=== PATIENT | male | born 1935 | race Caucasian/White ===

== ENCOUNTER 2016-12-16 09:51 | Inpatient (IN) | payer MEDICARE, OTHER ==
[2016-12-16] MEDS ORDERED: NS 0.9% 1000 ML* 1,000 ML IV ONE (10:42)
[2016-12-16] MEDS ORDERED: Ondansetron INJ* 2 MG/ML VIAL IV ONE ×2 (10:42→12:30)
[2016-12-16] MEDS ORDERED: HYDROmorphone INJ* 1 MG/ML CARPUJECT SYRINGE IV ONE ×2 (10:42→12:30)
[2016-12-16 11:07] LABS: Hematocrit 36 % (42-52); Hemoglobin 11.7 g/dl (14.0-18.0); Mean Corpuscular HGB Conc 33 g/dl (31-36); Mean Corpuscular Hemoglobin 32 pg (27-31); Mean Corpuscular Volume 95 fL (80-94); Mean Platelet Volume 8 um3 (7.4-10.4); Red Blood Count 3.73 10^6/ul (4.0-5.4); Red Cell Distribution Width 14 % (10.5-15); White Blood Count 8.1 10^3/ul (3.5-10.8)
[2016-12-16 11:11] LABS: Add Diff/Slide Review? Slide Review Added; Comments Flag Yes
[2016-12-16 11:22] LABS: Albumin 3.2 g/dL (3.2-5.2); BUN/Creatinine Ratio 16.3 (8-20); C Reactive Protein 44.79 mg/L (< 5.00); Calcium 9.2 mg/dL (8.6-10.3); EGFR African American 101.5 (>60); Globulin 3.2 g/dL (2-4); Potassium 3.4 mmol/L (3.5-5.0); Total Bilirubin 0.3 mg/dL (0.2-1.0); Total Protein 6.4 g/dL (6.4-8.9)
[2016-12-16] MEDS ORDERED: ceFAZolin 1 GM in Dextrose (*) 1 GM/50 ML BAG IVPB ONE (12:04)
[2016-12-16] MEDS ORDERED: LORazepam TAB(*) 0.5 MG G TUBE PRN (13:34)
[2016-12-16] MEDS ORDERED: oxyCODONE TAB* 5 MG TAB PRN ×2 (13:34)
[2016-12-16] MEDS ORDERED: Sucralfate SUSP 1 GM/10 ml 10 ML UDC G TUBE SCH (13:45)
[2016-12-16] MEDS ORDERED: Acetaminophen ADULT LIQ* 650 MG/20.3 ML UDC G TUBE SCH (14:00)
--- NOTE | 2016-12-16 14:36 | ED ---
Fredis Tiwari Matthew, scribed for Talon Gonzalez MD on 12/16/16 at 1105 . GI/ HPI - HPI Summary HPI Summary: An 81 y/o male presents to the ED from [facility] with a G-Tube obstruction since this morning. G-Tube use was restarted on 12/11/16 after the patient saw Dr. Aguilar. At that time, it was decided he would no longer ingest food PO, because of an obstructed esophagus from tumors. In the past week, the nurse has been able to pass fluid through the G-Tube, but it has becoming increasingly difficulty and this morning they were unable to use the G-Tube. Associated symptoms include lateral erythema around the G-tube sight since 2 days ago, and diffuse abdominal pain that radiates to the back. The pain is rated 7/10 in severity. He has been unable to take his pain medication today. Per the daughter, he also has a port, which has not been flushed in months. - History of Current Complaint Chief Complaint: EDGeneral Time Seen by Provider: 12/16/16 10:14 Stated Complaint: PAIN, G TUBE ISSUES Hx Obtained From: Patient, Family/Integrity Engineer - Daughter Onset/Duration: Started Minutes Ago, Atraumatic, Still Present Timing: Constant Severity: Moderate Current Severity: Moderate Pain Intensity: 7 Location of Pain: Diffuse Pain Radiates to: Back Associated Signs and Symptoms: Positive: Back Pain, Abdominal Pain, Other: - Erythema laterally to the G-Tube Sight Aggravating Factor(s): Nothing Alleviating Factor(s): Nothing - Additional Pertinent History Primary Care Physician: [id number] - Allergy/Home Medications Allergies/Adverse Reactions: Allergies Allergy/AdvReac Type Severity Reaction Status Date / Time Esomeprazole [From Nexium] Allergy Unknown Verified 12/16/16 09:53 Reaction Details Gabapentin Allergy Unknown Verified 12/16/16 09:53 Reaction Details Niacin [From Niaspan] Allergy SEVERE Verified 12/16/16 09:53 HEARTBURN- PER DR. DWYER OFFICE NOTE Omeprazole [From Prilosec] Allergy Unknown Verified 12/16/16 09:53 Reaction Details Home Medications: Home Medications Acetaminophen [Eq Acetaminophen] 650 mg G TUBE Q4HR 12/16/16 [History Confirmed 12/16/16] Albuterol 2.5MG/3ML (0.083%)* [Ventolin 2.5 MG/3 ML NEB.GERARD*] 2.5 mg INH Q2H [History Confirmed 12/16/16] Gabapentin CAP(*) [Neurontin 100 mg CAP(*)] 200 mg G TUBE BID 12/16/16 [History Confirmed 12/16/16] LORazepam TAB(*) [Ativan TAB(*)] 0.5 mg G TUBE Q3HR PRN 12/16/16 [History Confirmed 12/16/16] Methylprednisolone [Medrol] 4 mg G TUBE BID 12/16/16 [History Confirmed 12/16/16 ] Nutritional Supplements [Ensure Plus] 1 liq G TUBE SEE INSTRUCTIONS 12/16/16 [ History Confirmed 12/16/16] Pantoprazole SUSP(NF) [Protonix SUSP (NF)] 40 mg G TUBE DAILY WITH MEAL [History Confirmed 12/16/16] Sucralfate SUSP (NF) [Carafate SUSP (NF)] 1 gm G TUBE Q6H 12/16/16 [History Confirmed 12/16/16] oxyCODONE SR TAB(*) [Oxycontin 20 mg (*)] 20 mg G TUBE Q12HR 12/16/16 [History Confirmed 12/16/16] oxyCODONE TAB* [Roxycodone TAB 5 mg*] 5 mg G TUBE BEDTIME PRN 12/16/16 [History Confirmed 12/16/16] oxyCODONE TAB* [Roxycodone TAB 5 mg*] 5 mg G TUBE Q3H PRN 12/16/16 [History Confirmed 12/16/16] PMH/Surg Hx/FS Hx/Imm Hx Endocrine/Hematology History: Reports: Hx Diabetes Denies: Hx Thyroid Disease Cardiovascular History: Reports: Hx Coronary Artery Disease - 2 STENTS PLACED 7 YEARS AGO, Hx Hypertension, Hx Peripheral Vascular Disease - VASCULAR SURGERY IN THE PAST- 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, Other Cardiovascular Problems/Disorders - CAD, AAA Denies: Hx Congestive Heart Failure Respiratory History: Reports: Hx Chronic Obstructive Pulmonary Disease (COPD) Denies: Hx Asthma GI History: Reports: Hx Gastroesophageal Reflux Disease - HX OF, Other GI Disorders - HISTORY OF COLON CANCER- HAS DIARRHEA OFTEN Denies: Hx Ulcer History: Reports: Hx Kidney Stones Musculoskeletal History: Reports: Hx Arthritis - SHOULDERS Sensory History: Reports: Hx Cataracts, Hx Contacts or Glasses - READING GLASSES , Hx Hearing Problem Denies: Hx Hearing Aid Opthamlomology History: Reports: Hx Cataracts, Hx Contacts or Glasses - READING GLASSES Psychiatric History: Reports: Hx Depression - Cancer History Cancer Type, Location and Year: colon, esophageal Hx Chemotherapy: Yes Hx Radiation Therapy: Yes - Surgical History Surgery Procedure, Year, and Place: surgery for colon cancer -cardiac stents right inguinal hernia repair, vascular surgery-femerol artery-03/10-[facility] Anesthesia Reactions: No Infectious Disease History: No Infectious Disease History: Denies: Hx Clostridium Difficile, Hx Hepatitis, Hx Human Immunodeficiency Virus (HIV), Hx of Known/Suspected MRSA, Hx Shingles, Hx Tuberculosis, Hx Known/ Suspected VRE, Hx Known/Suspected VRSA, History Other Infectious Disease, Traveled Outside the in Last 30 Days - Family History Family History: No FHx of malignant hyperthermia. No FHx of anesthesia reaction - Social History Alcohol Use: None Alcohol Amount: 1 BEER ON A HOT DAY Substance Use Type: Reports: None Smoking Status (MU): Former Smoker Amount Used/How Often: 1 1/2 PPD X 30+ YEARS Have You Smoked in the Last Year: No Review of Systems Constitutional: Negative Eyes: Negative ENT: Negative Cardiovascular: Negative Respiratory: Negative Positive: Abdominal Pain - Diffuse Genitourinary: Negative Positive: Myalgia - Back Pain Skin: Other - Erythema laterally to the G-Tube Sight Neurological: Negative Psychological: Normal All Other Systems Reviewed And Are Negative: Yes Physical Exam Triage Information Reviewed: Yes Vital Signs On Initial Exam: Initial Vitals Temp Pulse Resp BP Pulse Ox 97.8 F 87 16 115/56 100 12/16/16 09:53 12/16/16 09:53 12/16/16 09:53 12/16/16 09:53 12/16/16 09:53 Vital Signs Reviewed: Yes Appearance: Positive: Well-Appearing, Well-Nourished Skin: Positive: Erythema @ - laterally to G-Tube Sight Head/Face: Positive: Normal Head/Face Inspection Eyes: Positive: Normal ENT: Positive: Normal ENT inspection Neck: Positive: Supple, Nontender Respiratory/Lung Sounds: Positive: Clear to Auscultation, Breath Sounds Present Cardiovascular: Positive: RRR Abdomen Description: Positive: Soft, Other: - Tender diffusely in the LUQ Bowel Sounds: Positive: Present Musculoskeletal: Positive: Normal Neurological: Positive: Normal Psychiatric: Positive: Normal, Affect/Mood Appropriate Diagnostics - Vital Signs Vital Signs Temp Pulse Resp BP Pulse Ox 12/16/16 09:53 97.8 F 87 16 115/56 100 - Laboratory Lab Results: Lab Results 12/16/16 12/16/16 Range/Units 11:00 11:00 WBC 8.1 (3.5-10.8) 10^3/ul RBC 3.73 L (4.0-5.4) 10^6/ul Hgb 11.7 L (14.0-18.0) g/dl Hct 36 L (42-52) % MCV 95 H (80-94) fL MCH 32 H (27-31) pg MCHC 33 (31-36) g/dl RDW 14 (10.5-15) % Plt Count 207 (150-450) 10^3/ul MPV 8 (7.4-10.4) um3 Neut % (Auto) 78.6 (38-83) % Lymph % (Auto) 6.4 L (25-47) % [place] % (Auto) 11.8 H (1-9) % Eos % (Auto) 2.4 (0-6) % Baso % (Auto) 0.8 (0-2) % Absolute Neuts (auto) 6.4 (1.5-7.7) 10^3/ul Absolute Lymphs (auto) 0.5 L (1.0-4.8) 10^3/ul Absolute Monos (auto) 1.0 H (0-0.8) 10^3/ul Absolute Eos (auto) 0.2 (0-0.6) 10^3/ul Absolute Basos (auto) 0.1 (0-0.2) 10^3/ul Absolute Nucleated RBC 0.01 10^3/ul Nucleated RBC % 0.1 Sodium 135 (133-145) mmol/L Potassium 3.4 L (3.5-5.0) mmol/L Chloride 96 L (101-111) mmol/L Carbon Dioxide 33 H (22-32) mmol/L Anion Gap 6 (2-11) mmol/L BUN 15 (6-24) mg/dL Creatinine 0.92 (0.67-1.17) mg/dL Est GFR ( Amer) 101.5 (>60) Est GFR (Non-Af Amer) 79.0 (>60) BUN/Creatinine Ratio 16.3 (8-20) Glucose 116 H (70-100) mg/dL Calcium 9.2 (8.6-10.3) mg/dL Total Bilirubin 0.30 (0.2-1.0) mg/dL AST 15 (13-39) U/L ALT 12 (7-52) U/L Alkaline Phosphatase 91 (34-104) U/L C-Reactive Protein 44.79 H (< 5.00) mg/L Total Protein 6.4 (6.4-8.9) g/dL Albumin 3.2 (3.2-5.2) g/dL Globulin 3.2 (2-4) g/dL Albumin/Globulin Ratio 1.0 (1-3) Result Diagrams: 12/16/16 11:00 12/16/16 11:00 Lab Statement: Any lab studies that have been ordered have been reviewed, and results considered in the medical decision making process. GIGU Course/Dx - Course Assessment/Plan: An 81 y/o male presents to the ED from [facility] with a G-Tube obstruction since this morning. G-Tube use was restarted on after the patient saw Dr. Aguilar. At that time, it was decided he would no longer ingest food PO, because of an obstructed esophagus from tumors. Associated symptoms include lateral erythema around the G-tube sight since 2 days ago, and diffuse abdominal pain that radiates to the back. Lab results were reviewed. Discussed the case with Dr. Aguilar who saw the patient and was able to clear the G-Tube. He recommends hospitalist admission for possible cellulitis. Discussed the case with Dr. Yanez who hasnt seen the patient for quite a while and felt the hospitalist should admit the patient. Dr. Gan who will admit the patient into his care. - Diagnoses Provider Diagnoses: Cellulitis - Physician Notifications Discussed Care Of Patient With: Dr. Aguilar (GI) at 11:14 -- Notified of patient' s history and will evaluate the patient. Dr. Aguilar (GI) at 12:06 -- Recommends hospitalist admission for possible cellulitis. Dr. Yanez ( Oncology) at 12:07 -- Notified of patient's history. Dr. Gan (Hospitalist) at 12:14 -- Notified of patient's history and will admit the patient. Discharge - Discharge Plan Condition: Stable Disposition: ADMITTED TO [facility] Referrals: Deigo Nicole MD [Primary Care Provider] - The documentation as recorded by the Fredis whitehead Matthew accurately reflects the service I personally performed and the decisions made by me, Talon Gonzalez MD.
--- NOTE | 2016-12-16 14:42 | RAD ---
INDICATION: Soft tissue swelling around percutaneous gastrostomy tube. COMPARISON: Comparison is made with a prior PET/CT study from January 27, 2016. TECHNIQUE: Dual real-time images of the soft tissues of the anterior abdominal wall adjacent to the patient's PEG tube were obtained. FINDINGS: There is mild soft tissue swelling. In the superficial soft tissues in the anterior abdominal wall there is a circumscribed round fluid echogenicity area measuring 2.6 cm in diameter possibly representing the balloon from the patient's percutaneous gastrostomy tube. No other fluid collections are seen. IMPRESSION: THERE IS A CIRCUMSCRIBED FLUID COLLECTION LOCATED IN THE SUPERFICIAL SOFT TISSUES IN THE ANTERIOR ABDOMINAL WALL POSSIBLY REPRESENTING THE BALLOON FROM THE PATIENT'S PERCUTANEOUS GASTROSTOMY TUBE. RECOMMEND A CT OF THE ABDOMEN WITHOUT CONTRAST FOR FURTHER CLARIFICATION.
[2016-12-16] MEDS: Albuterol 2.5 MG/3 ML NEB.SOL* (0.083%) INH SCH ×2 (15:43→18:03)
[2016-12-16] MEDS: Enoxaparin(*) 40 MG/0.4 ML SYR SUBCUT SCH ×2 (15:44→16:24)
--- NOTE | 2016-12-16 15:51 | RAD ---
INDICATION: Swelling anterior abdominal wall over region of PEG tube, abnormal ultrasound of the abdominal wall. COMPARISON: Correlation is made with a prior soft tissue ultrasound from December 16, 2016 and a prior PET/CT study from January 27, 2016. Comparison is also made with a prior CT angiogram of the abdomen from August 16, 2012. TECHNIQUE: A CT scan of the abdomen was performed without intravenous or oral contrast. Contiguous axial sections were obtained from the lung bases through the tops of the iliac crests. Images were reconstructed in the coronal and sagittal planes. FINDINGS: There is mild dependent bilateral lower lobe subsegmental atelectasis. No pleural effusion is present. The liver and spleen are within normal limits without significant focal abnormality on this noncontrast study. No calcified gallstones are seen. There is fatty infiltration of the pancreas which otherwise appears unremarkable. There are small bilateral adrenal nodules which are unchanged from the prior studies measuring 1.6 cm on the right and 1.4 cm on the left most consistent with benign adenomas. The kidneys are small in size with bilateral cortical thinning. There appear to be small bilateral renal calculi which are nonobstructing. No hydronephrosis is present. 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 There is moderate to severe calcific plaque present within the abdominal aorta. No significant enlarged retroperitoneal lymph nodes are seen. The visualized portion of the small and large bowel appear nondistended. The patient's percutaneous gastrostomy tube has been pulled out into the anterior abdominal wall. The rubber stopper retaining device which was located within the body of the stomach on the prior study is located in the anterior abdominal wall. This would account for the circumscribed fluid structure on the prior ultrasound study. There is mild surrounding soft tissue swelling. No fluid collection is seen. No free intraperitoneal air or fluid is seen. No significant focal osseous abnormality is seen. IMPRESSION: 1. THE PATIENT'S PERCUTANEOUS GASTROSTOMY TUBE HAS BEEN PULLED OUT. THE RUBBER STOPPER IS LOCATED WITHIN THE ANTERIOR ABDOMINAL WALL ACCOUNTING FOR THE PRIOR ULTRASOUND FINDING. 2. STABLE BILATERAL ADRENAL NODULES MOST CONSISTENT WITH BENIGN ADENOMAS. 3. NONOBSTRUCTING BILATERAL RENAL CALCULI. 4. SMALL FUSIFORM SHAPED ANEURYSM OF THE DISTAL ABDOMINAL AORTIC, UNCHANGED.
--- NOTE | 2016-12-16 16:21 | PN ---
Progress Note - Progress Note Note: CT of the abdomen indicated PEG tube is not in the stomach. Tube will have to be removed but unclear if this will have to be performed in the OR. Replacing a PEG tube will also pose a challenge as it cannot be done endoscopically 2/2 complete obstruction. Surgery carries obvious risk. Will need to discuss with interventional radiology to see if that is a viable means. NOTHING PER PEG TUBE NOTHING PER ORAL
[2016-12-16] MEDS: D5W 1/2 NS 1000 ML BAG* 1,000 ML IV SCH (16:38)
[2016-12-16] MEDS: ceFAZolin 1 GM in Dextrose (*) 1 GM/50 ML BAG IVPB SCH ×2 (18:01→23:25)
--- NOTE | 2016-12-16 20:19 | CONS ---
CONSULTATION NOTE: DATE OF CONSULT: 12/16/16 REASON FOR CONSULTATION: Wound cellulitis at PEG tube site and inability to flush PEG tube. NARRATIVE: Mr. 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 He is currently on hospice. He had a feeding tube placed a couple of years ago and has more recently been trying to eat and drink, although has noticed inability to swallow in the last several weeks. Due to the concerns of an esophageal obstruction from his recurrent cancer, it was recommended that he rely solely on PEG tube feedings and medicines through the PEG tube. This went well earlier this week but in the last 48 hours, he has developed redness and pain around the PEG tube site and today at the detention, the nurses had difficulty flushing the PEG tube and therefore, he presented to the emergency room. On arrival to the emergency room , I was consulted. On examining the abdomen, there was significant erythema and brawny edema around the PEG tube site with tenderness. There was no active drainage. The tube itself was felt to be in good condition, but it was entirely clogged. I placed a PEG tube brush through the tube and was able to dislodge the clog and it was functioning normally. However, due to the presence of a probable wound cellulitis at the site of the PEG tube, we recommended admission for antibiotic therapy. PAST MEDICAL HISTORY: Again includes: 1. Malignancy of the GE junction as described above. 2. COPD. 3. CAD. 4. Hyperlipidemia. 5. Diabetes. 6. A remote history of colon cancer. He is ambulatory. MEDICATIONS: 1. Baby aspirin. 2. Pletal. 3. Plavix. 4. Hydrocodone as needed. 5. Lisinopril. 6. Potassium. 7. Carafate. REVIEW OF SYSTEMS: There is no report of fevers, chills, or GI bleeding. PHYSICAL EXAM: He is a chronically ill-appearing gentleman lying in bed, mentating well, describing some pain in his abdomen but in no acute distress. Temperature is 97.8, blood pressure is 115/56, heart rate is 87. Lungs auscultate clear anteriorly. Cardiac exam reveals a regular rhythm. Abdomen shows the PEG tube emanating from the upper abdomen with approximately 2 to 3 cm of edema, erythema, and tenderness surrounding it in a circular fashion. Again, there was no obvious skin breakdown or drainage. The rest of the abdomen was benign without tenderness. DIAGNOSTIC STUDIES/LAB DATA: Include a white count of 8.1, hemoglobin of 11.7, BUN of 15, creatinine of 0.92, albumin of 3.2, C-reactive protein of 44.79. IMPRESSION: An 81-year-old gentleman currently with end-stage adenocarcinoma of the GE junction, currently being treated palliatively who is PEG tube dependent, now coming in with what appears to be cellulitis at the PEG tube site. The PEG tube now was functioning well, but there are clearly signs of infection around the PEG tube. At this point, I would advocate admission for IV antibiotics. With aggressive therapy, I do believe we could salvage this feeding tube and use it which he certainly will need for the limited lifespan that he will have. If the area looks stable, then he could likely be discharged tomorrow with antibiotics through the PEG tube. We can certainly use the PEG tube at this point for feeding and medicines. [id number]/[facility] #: [id number] MTDD
[2016-12-16] MEDS: Morphine INJ* 2 MG/ML 1 ML CARPUJECT IV PRN ×2 (20:59→23:25)
[2016-12-16] MEDS ORDERED: Albuterol 2.5 MG/3 ML NEB.SOL* (0.083%) INH PRN (21:00)
[2016-12-16] MEDS ORDERED: CMC: Venlafaxine TAB (NF) 25 MG TAB G TUBE SCH (21:00)
[2016-12-16] MEDS ORDERED: methylPREDNISolone TAB* 4 MG G TUBE SCH (21:00)
[2016-12-16] MEDS ORDERED: Gabapentin CAP(*) 100 MG SCH (21:00)
--- NOTE | 2016-12-16 21:34 | HP ---
ADMISSION HISTORY AND PHYSICAL: DATE OF ADMISSION: 12/16/16 PRIMARY CARE PROVIDER: Dr. Padgett, as well as provider at [facility]. HEALTHCARE PROXY: Daughter, Cata Junior. CODE STATUS: DNR/DNI. MOLST completed and in chart. SOURCE OF INFORMATION: History obtained from interview with the patient and his daughter, review of records from [facility], and discussion with ED physician and Dr. Aguilar. RELIABILITY: Very good. CHIEF COMPLAINT: Clogged PEG tube and pain around PEG tube exit site. HISTORY OF PRESENT ILLNESS: This is an 81-year-old gentleman, past medical history of T3N0 EG junction adenocarcinoma, status post combined modality therapy, carboplatin and Taxol, and radiation therapy in 2015 which he did not tolerate, erosive esophagitis, discharged to hospice, continued to do well, and was discharged from hospice. He had increasing dysphagia and ultimately had a PEG tube placed. Over the past 1 to 2 months, he has had increasingly difficult time eating and his medications and food have slowly been transitioned to his PEG tube. He was seen by Dr. Aguilar 4 days prior and he was started on tube feeds only. At that time, 4 days prior, there was no surrounding erythema at the site of the PEG tube exit site. This morning, his PEG tube was noted to be plugged and he presented to the emergency room. He was seen by Dr. Aguilar who was able to unclog the PEG tube at the emergency room ; however, the site left lateral to the PEG tube exit site was red, swollen, and painful and the hospitalist service was consulted for admission. PAST MEDICAL HISTORY: 1. 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 2. Erosive esophagitis. 3. Hypertension. 4. COPD. 5. CAD with RI. 6. Peripheral vascular disease. 7. Hyperlipidemia. 8. Type 2 diabetes. 9. History of colon resection. 10. History of fem-pop bypass. 11. Hernia repair. HOME MEDICATIONS: All consumed through PEG tube. 1. Lorazepam 0.5 mg every 3 hours as needed. 2. Gabapentin 200 mg twice daily, although listed as an allergy. 3. Acetaminophen 650 mg every 4 hours. 4. Oxycodone 5 mg at bedtime as needed. 5. Oxycodone 5 mg every 3 hours as needed. 6. Oxycodone SR is listed as a home medication; however, discussed with the patient and healthcare proxy and he is no longer taking the sustained release which cannot be broken and placed in the PEG tube. 7. Sucralfate 1 g through PEG tube every 6 hours. 8. Methylprednisolone 4 g twice daily. 9. Lisinopril 10 mg daily. 10. Clopidogrel 75 mg daily. 11. Ensure Plus 5 cans daily. 12. Venlafaxine XR 37.5 mg twice daily. 13. Protonix suspension 40 mg daily with meals. 14. Albuterol nebulizer 2.5 mg every 2 hours as needed for shortness of breath. ALLERGIES: NIACIN, ESOMEPRAZOLE, GABAPENTIN, and OMEPRAZOLE. FAMILY HISTORY: Father with colon cancer. Mother with an RI. SOCIAL HISTORY: Former tobacco use, 2 packs per day, quit in 2001. No alcohol. No illicits. Resident of [facility]. REVIEW OF SYSTEMS: As per HPI. Otherwise, all other systems negative. PHYSICAL EXAMINATION GENERAL: Elderly man, lying flat, interactive, pleasant, in no apparent distress. VITAL SIGNS: When seen by this author, 107/65, heart rate 78, respiratory rate of 16, T-max in the emergency room 97.8, 98% on room air. HEENT: Oropharynx is clear. He has moist mucous membranes. Sclerae anicteric. NECK: Nonelevated JVD. LUNGS: Clear. HEART: Regular rate and rhythm. No murmurs, rubs, or gallops. ABDOMEN: Soft, nontender, nondistended. He has a PEG tube midline that is now functioning. EXTREMITIES: Warm and well perfused without clubbing, cyanosis, or edema. NEUROLOGIC: He is alert and oriented x3. His cranial nerves are intact. SKIN: To the left of his PEG tube, there is an area of erythema and induration. Tender to palpation. PSYCH: No apparent anxiety, agitation, or depression. LABORATORY DATA/DIAGNOSTIC STUDIES: Data reviewed. Notable for white blood cell count 8.1, hemoglobin 11.7, platelets 207. Sodium 135, potassium 3.4, bicarb 33, BUN 15, creatinine 0.95, CRP is 44. Data reviewed. Ultrasound of his abdomen indicates there is a circumscribed fluid collection located in the superficial soft tissue in the anterior abdominal wall the possibly representing the balloon from the patient's percutaneous gastrostomy tube. A CT of the abdomen without contrast was recommended for further clarification. IMPRESSION: This is an 81-year-old man, past medical history of adenocarcinoma complicated by worsening dysphagia requiring PEG tube, discharged to hospice in January 2016, discharged from hospice although with remaining poor prognosis, returning with nonfunctioning PEG tube and surrounding cellulitis. 1. Nonfunctioning PEG tube: Flushed by Dr. Aguilar and now functioning. 2. Cellulitis with possible underlying abscess. Ultrasound indicates possible balloon in the skin. Discussed with Dr. Aguilar who indicated that the PEG tube is not held in place with the balloon, but with a plastic bumper. It is unclear exactly what structure is being visualized on the ultrasound, but further clarification with a CT of the abdomen without contrast will be obtained. Discussed with Dr. Kay use for instilling contrast through PEG tube. Cefazolin q.6 hours. Reevaluate tomorrow. 3. Esophageal adenocarcinoma: No further treatment. 4. Chronic pain: Continue oxycodone through PEG tube if needed. IV is available. 5. Jevity 1.2 through PEG tube 5 times daily and code status is DNR. MOLST updated and placed in the chart. [id number]/[facility] #: [id number] [facility]
[2016-12-17] MEDS: Morphine INJ* 2 MG/ML 1 ML CARPUJECT IV PRN ×4 (01:48→09:14)
[2016-12-17] MEDS: ceFAZolin 1 GM in Dextrose (*) 1 GM/50 ML BAG IVPB SCH ×3 (05:58→17:38)
[2016-12-17] MEDS: D5W 1/2 NS 1000 ML BAG* 1,000 ML IV SCH ×2 (06:05→21:12)
[2016-12-17] MEDS ORDERED: Lansoprazole SOLUTAB* 30 MG G TUBE SCH (08:30)
[2016-12-17] MEDS ORDERED: Lisinopril TAB* 10 MG G TUBE SCH (09:00)
[2016-12-17] MEDS ORDERED: Clopidogrel TAB* 75 MG SCH (09:00)
[2016-12-17] MEDS: methylPREDNISolone SOD 40 MG* 1 ML VIAL IV SCH (09:13)
[2016-12-17] MEDS: HYDROmorphone INJ* 1 MG/ML CARPUJECT SYRINGE IV SLOW PU PRN ×4 (11:01→23:40)
[2016-12-17] MEDS: Enoxaparin(*) 40 MG/0.4 ML SYR SUBCUT SCH (14:03)
--- NOTE | 2016-12-17 16:54 | PN ---
Subjective Date of Service: 12/17/16 Interval History: Seen and examined this AM Pain not well controlled No other complaints Objective Active Medications: Albuterol (Ventolin 2.5 Mg/3 Ml Neb.Gabi*) 2.5 mg INH Q2H PRN PRN Reason: SOB/WHEEZING Enoxaparin Sodium (Lovenox(*)) 40 mg SUBCUT Q24H [facility] Last Admin: 12/17/16 14:03 Dose: 40 mg Hydromorphone HCl (Dilaudid Iv*) 1 mg IV SLOW PU Q3H PRN PRN Reason: PAIN Last Admin: 12/17/16 14:03 Dose: 1 mg Cefazolin Sodium/Dextrose (Kefzol 1 Gm In Dextrose Duplex (*)) 1 gm in 50 mls @ 200 mls/hr IVPB Q6H [facility] Last Admin: 12/17/16 11:00 Dose: 200 mls/hr Dextrose/Sodium Chloride (D5w 1/2 Ns 1000 Ml Bag*) 1,000 mls @ 75 mls/hr IV PER RATE [facility] Last Admin: 12/17/16 06:05 Dose: 75 mls/hr Methylprednisolone Sodium Succinate (Solu-Medrol*) 4 mg IV DAILY [facility] Last Admin: 12/17/16 09:13 Dose: 4 mg Ondansetron HCl (Zofran Inj*) 4 mg IV Q4H PRN PRN Reason: NAUSEA Vital Signs 12/16/16 12/16/16 12/16/16 19:45 20:00 20:21 Temperature 97.4 F 97.2 F Pulse Rate 90 81 Respiratory 20 Rate Blood Pressure 114/72 114/72 (mmHg) O2 Sat by Pulse 93 96 Oximetry 12/16/16 12/16/16 12/16/16 20:53 20:59 21:50 Temperature 97.3 F 98.7 F Pulse Rate 81 81 Respiratory 16 16 18 Rate Blood Pressure 100/43 94/38 (mmHg) O2 Sat by Pulse 93 92 Oximetry 12/16/16 12/16/16 12/16/16 21:57 21:59 22:48 Temperature Pulse Rate 89 92 Respiratory 16 Rate Blood Pressure 113/58 101/52 (mmHg) O2 Sat by Pulse 93 94 Oximetry 12/16/16 12/17/16 12/17/16 23:25 00:25 00:41 Temperature 98.4 F Pulse Rate 84 Respiratory 16 18 16 Rate Blood Pressure 108/60 (mmHg) O2 Sat by Pulse 95 Oximetry 12/17/16 12/17/16 12/17/16 01:48 02:42 02:48 Temperature 98.2 F Pulse Rate 83 Respiratory 16 16 16 Rate Blood Pressure 91/51 (mmHg) O2 Sat by Pulse 95 Oximetry 12/17/16 12/17/16 12/17/16 03:47 03:48 04:48 Temperature Pulse Rate Respiratory 16 18 16 Rate Blood Pressure (mmHg) O2 Sat by Pulse Oximetry 12/17/16 12/17/16 12/17/16 05:57 06:42 07:32 Temperature 97.4 F 97.4 F Pulse Rate 75 75 Respiratory 16 16 14 Rate Blood Pressure 101/46 100/50 (mmHg) O2 Sat by Pulse 100 99 Oximetry 12/17/16 12/17/16 12/17/16 08:00 09:14 11:01 Temperature Pulse Rate Respiratory 18 18 18 Rate Blood Pressure (mmHg) O2 Sat by Pulse Oximetry 12/17/16 12/17/16 12/17/16 11:10 12:01 14:03 Temperature 97.3 F Pulse Rate 80 Respiratory 14 18 18 Rate Blood Pressure 97/50 (mmHg) O2 Sat by Pulse 93 Oximetry 12/17/16 15:03 Temperature Pulse Rate Respiratory 14 Rate Blood Pressure (mmHg) O2 Sat by Pulse Oximetry Oxygen Devices in Use Now: None Appearance: NAD Eyes: No Scleral Icterus, PERRLA Ears/Nose/Mouth/Throat: NL Teeth, Lips, Gums, - - dry MM Neck: NL Appearance and Movements; NL JVP, Trachea Midline Respiratory: Symmetrical Chest Expansion and Respiratory Effort, Clear to Auscultation Cardiovascular: RRR Abdominal: - - soft, NTTP, PEG in place Extremities: No Edema Skin: - - area of erythema surround PEG stable, demarcated today Neurological: Alert and Oriented x 3 Result Diagrams: 12/16/16 11:00 12/16/16 11:00 Additional Lab and Data: Lab Results 12/16/16 12/16/16 Range/Units 11:00 11:00 WBC 8.1 (3.5-10.8) 10^3/ul RBC 3.73 L (4.0-5.4) 10^6/ul Hgb 11.7 L (14.0-18.0) g/dl Hct 36 L (42-52) % MCV 95 H (80-94) fL MCH 32 H (27-31) pg MCHC 33 (31-36) g/dl RDW 14 (10.5-15) % Plt Count 207 (150-450) 10^3/ul MPV 8 (7.4-10.4) um3 Neut % (Auto) 78.6 (38-83) % Lymph % (Auto) 6.4 L (25-47) % [place] % (Auto) 11.8 H (1-9) % Eos % (Auto) 2.4 (0-6) % Baso % (Auto) 0.8 (0-2) % Absolute Neuts (auto) 6.4 (1.5-7.7) 10^3/ul Absolute Lymphs (auto) 0.5 L (1.0-4.8) 10^3/ul Absolute Monos (auto) 1.0 H (0-0.8) 10^3/ul Absolute Eos (auto) 0.2 (0-0.6) 10^3/ul Absolute Basos (auto) 0.1 (0-0.2) 10^3/ul Absolute Nucleated RBC 0.01 10^3/ul Nucleated RBC % 0.1 Sodium 135 (133-145) mmol/L Potassium 3.4 L (3.5-5.0) mmol/L Chloride 96 L (101-111) mmol/L Carbon Dioxide 33 H (22-32) mmol/L Anion Gap 6 (2-11) mmol/L BUN 15 (6-24) mg/dL Creatinine 0.92 (0.67-1.17) mg/dL Est GFR ( Amer) 101.5 (>60) Est GFR (Non-Af Amer) 79.0 (>60) BUN/Creatinine Ratio 16.3 (8-20) Glucose 116 H (70-100) mg/dL Calcium 9.2 (8.6-10.3) mg/dL Total Bilirubin 0.30 (0.2-1.0) mg/dL AST 15 (13-39) U/L ALT 12 (7-52) U/L Alkaline Phosphatase 91 (34-104) U/L C-Reactive Protein 44.79 H (< 5.00) mg/L Total Protein 6.4 (6.4-8.9) g/dL Albumin 3.2 (3.2-5.2) g/dL Globulin 3.2 (2-4) g/dL Albumin/Globulin Ratio 1.0 (1-3) Assess/Plan/Problems-Billing Assessment: 81 yo M h/o esophageal adenocarcinoma now with complete esophageal obstruction, PEG dependant for nutrition and medication admitted with dislodged PEG and surrounding cellulitis - Patient Problems (1) PEG (percutaneous endoscopic gastrostomy) adjustment/replacement/removal Comment: PEG removed by Dr. Giordano today 12/17 and replaced with coude catheter Unclear if coude is in proper location. Will check PEG placement with fluoroscopy tomorrow If in proper place plan will be to upsize every several days to larger catheter CURRENTLY DO NOT PUT ANYTHING THROUGH CATHETER (2) Cellulitis Comment: c/w ancef (3) Bursitis Comment: noted over right elbow by nursing. Minimal pain when palpated. Monitor. (4) Adenocarcinoma of esophagus Comment: no further therapy discharged from hospice (5) DVT prophylaxis Comment: elidianox (6) DNR (do not resuscitate)
[2016-12-18] MEDS: ceFAZolin 1 GM in Dextrose (*) 1 GM/50 ML BAG IVPB SCH ×4 (00:08→17:13)
--- NOTE | 2016-12-18 01:11 | PRO ---
DATE OF PROCEDURE: 12/17/16 - ROOM #417 DATE OF : 35 SURGEON: Jax Giordano MD HISTORY: The patient is an 81-year-old male with known inoperable esophageal carcinoma with an esophageal obstruction who has had a PEG tube for feedings. He has recently had trouble with the PEG tube and it has been noted to be red, inflamed, swollen, and painful. He has had a CT scan which shows that the bumper from the PEG tube is in the subcutaneous and probably in the stomach. It is unclear by history how long it has been this way. DESCRIPTION OF PROCEDURE: On examination, there is a tube exiting the left upper quadrant of the abdomen with erythema of approximately 3 x 5 cm, more towards the lateral aspect than medially. The bumper is palpable under the lateral skin. After discussion with him, the area was prepped with alcohol and local lidocaine was placed completely surrounding the area. The skin was stretched and the bumper was able to be extracted. Using some lubricant, a 16- [place] Coude catheter was inserted into the tract and it felt like it was going into the stomach. The balloon was inflated and the catheter was brought up underneath and it was secured with gauze and tape. I instructed the nurse not to use the tube for any kind of flushes or feedings until we confirmed the location with x-ray and I discussed this with Dr. Gan as well. CC: Dr. Jax Giordano; [facility] * [id number]/[facility] #: [id number] MTDD
[2016-12-18] MEDS: HYDROmorphone INJ* 1 MG/ML CARPUJECT SYRINGE IV SLOW PU PRN ×5 (04:40→22:12)
[2016-12-18] MEDS: methylPREDNISolone SOD 40 MG* 1 ML VIAL IV SCH (08:10)
[2016-12-18] MEDS: D5W 1/2 NS 1000 ML BAG* 1,000 ML IV SCH (11:30)
[2016-12-18] MEDS: Enoxaparin(*) 40 MG/0.4 ML SYR SUBCUT SCH (12:17)
[2016-12-18] MEDS: Analgesic BALM* 114 GM TOPICAL SCH ×2 (12:18→20:35)
[2016-12-18] MEDS ORDERED: fentaNYL* 50 MCG/ML 2 ML VIAL (100 MCG VIAL) ONE (14:40)
--- NOTE | 2016-12-18 16:29 | RAD ---
CPT II Codes: 6045F Indication: Tube study after the patient's peg tube was inadvertently removed and replaced at bedside. History: Necessity for chronic feeding tube due to esophageal cancer. Anaesthesia: Lidocaine 1% locally and IV fentanyl Fluoroscopy time: 50 seconds Procedure note and findings: The risks and benefits of the procedure were carefully explained to the patient and the patient's daughter and informed consent was obtained. The patient was appropriately positioned on the fluoroscopy and a formal time out was performed. The existing tube and surrounding site was prepped and draped in standard sterile fashion. Sterile precautions including cap, mask, gown and sterile gloves were utilized. The skin surrounding the tube exit site was anesthetized with lidocaine. Injection of dilute Gastrografin into the existing feeding tube confirmed appropriate intraluminal position within the stomach. The balloon is visualized and appears properly inflated. A hydrophilic wire was advanced into the gastric lumen parallel to the existing feeding tube under fluoroscopic control. With the guidewire in place the intraluminal balloon is deflated. The old tube was removed and a new 20 [place] gastrostomy feeding tube was positioned in the gastric lumen under fluoroscopic control advanced over the wire. The intraluminal balloon was gently inflated with sterile water up to the device recommendations. The new feeding tube was injected with dilute contrast confirming appropriate intraluminal position. No leak of contrast into the lesser omentum is visualized. The external fastener was gently secured to the skin surface. The patient tolerated the procedure well and was transferred back to his inpatient room. IMPRESSION: Uncomplicated replacement of a 20-gauge percutaneous feeding tube with fluoroscopic guidance as described in the report.
[2016-12-18] MEDS ORDERED: LORazepam TAB(*) 0.5 MG G TUBE PRN (17:51)
--- NOTE | 2016-12-18 17:59 | PN ---
Subjective Date of Service: 12/18/16 Interval History: Seen and examined this AM Was restless. Didnt feel well but could not indicate why. Denies pain to this author but later did indicate increased pain to nursing. PEG replaced by IR Objective Active Medications: Albuterol (Ventolin 2.5 Mg/3 Ml Neb.Gabi*) 2.5 mg INH Q2H PRN PRN Reason: SOB/WHEEZING Clopidogrel Bisulfate (Plavix Tab*) 75 mg .SEE ORDER DAILY [facility] Enoxaparin Sodium (Lovenox(*)) 40 mg SUBCUT Q24H [facility] Last Admin: 12/18/16 12:17 Dose: Not Given Gabapentin (Neurontin Cap(*)) 200 mg .SEE ORDER BID [facility] Hydromorphone HCl (Dilaudid Iv*) 1 mg IV SLOW PU Q2H PRN PRN Reason: PAIN Last Admin: 12/18/16 17:18 Dose: 1 mg Cefazolin Sodium/Dextrose (Kefzol 1 Gm In Dextrose Duplex (*)) 1 gm in 50 mls @ 200 mls/hr IVPB Q6H [facility] Last Admin: 12/18/16 17:13 Dose: 200 mls/hr Dextrose/Sodium Chloride (D5w 1/2 Ns 1000 Ml Bag*) 1,000 mls @ 75 mls/hr IV PER RATE [facility] Last Admin: 12/18/16 11:30 Dose: 75 mls/hr Lansoprazole (Prevacid Solutab*) 30 mg G TUBE DAILY WITH MEAL [facility] Lisinopril (Prinivil Tab*) 10 mg G TUBE DAILY [facility] Lorazepam (Ativan Tab(*)) 0.5 mg G TUBE Q3HR PRN PRN Reason: ANXIETY Methylprednisolone (Medrol Tab*) 4 mg G TUBE BID [facility] Multi-Ingredient Liniment/Rub (Fernando Burns*) 1 applic TOPICAL TID [facility] Last Admin: 12/18/16 12:18 Dose: 1 applic Ondansetron HCl (Zofran Inj*) 4 mg IV Q4H PRN PRN Reason: NAUSEA Oxycodone HCl (Oxycontin(*)) 20 mg .SEE ORDER Q12HR [facility] Sucralfate (Sucralfate Susp) 1 gm G TUBE Q6H [facility] Venlafaxine HCl (Effexor Tab (Nf)) 37.5 mg G TUBE Q12HR [facility] Vital Signs 12/17/16 12/17/16 12/17/16 19:12 20:00 23:40 Temperature 98.0 F Pulse Rate 79 Respiratory 16 18 Rate Blood Pressure 111/56 (mmHg) O2 Sat by Pulse 89 Oximetry 12/18/16 12/18/16 12/18/16 00:18 00:40 04:40 Temperature Pulse Rate 80 Respiratory 20 18 14 Rate Blood Pressure (mmHg) O2 Sat by Pulse 88 Oximetry 12/18/16 12/18/16 12/18/16 04:55 05:40 07:23 Temperature 97.0 F Pulse Rate 71 74 Respiratory 17 16 16 Rate Blood Pressure 109/38 111/63 (mmHg) O2 Sat by Pulse 100 91 Oximetry 12/18/16 12/18/16 12/18/16 08:10 09:10 09:51 Temperature Pulse Rate Respiratory 20 18 18 Rate Blood Pressure (mmHg) O2 Sat by Pulse Oximetry 12/18/16 12/18/16 12/18/16 13:04 15:55 16:40 Temperature 98.0 F Pulse Rate 79 83 Respiratory 18 16 20 Rate Blood Pressure 141/79 (mmHg) O2 Sat by Pulse 96 96 Oximetry 12/18/16 17:18 Temperature Pulse Rate Respiratory 18 Rate Blood Pressure (mmHg) O2 Sat by Pulse Oximetry Oxygen Devices in Use Now: None Appearance: NAD, sitting on edge of bed, Eyes: No Scleral Icterus, PERRLA Ears/Nose/Mouth/Throat: Mucous Membranes Moist Neck: NL Appearance and Movements; NL JVP, Trachea Midline Respiratory: Symmetrical Chest Expansion and Respiratory Effort, - - rales right base up 1/2 Cardiovascular: NL Sounds; No Murmurs; No JVD, RRR Abdominal: - - coude exiting stomach with discharge leaking around Skin: - - area of erythema left lateral to peg exit remains but slightly improved Neurological: - - AOx2 to self and hospital, would not guess the year Result Diagrams: 12/16/16 11:00 12/16/16 11:00 Additional Lab and Data: Lab Results 12/16/16 12/16/16 Range/Units 11:00 11:00 WBC 8.1 (3.5-10.8) 10^3/ul RBC 3.73 L (4.0-5.4) 10^6/ul Hgb 11.7 L (14.0-18.0) g/dl Hct 36 L (42-52) % MCV 95 H (80-94) fL MCH 32 H (27-31) pg MCHC 33 (31-36) g/dl RDW 14 (10.5-15) % Plt Count 207 (150-450) 10^3/ul MPV 8 (7.4-10.4) um3 Neut % (Auto) 78.6 (38-83) % Lymph % (Auto) 6.4 L (25-47) % [place] % (Auto) 11.8 H (1-9) % Eos % (Auto) 2.4 (0-6) % Baso % (Auto) 0.8 (0-2) % Absolute Neuts (auto) 6.4 (1.5-7.7) 10^3/ul Absolute Lymphs (auto) 0.5 L (1.0-4.8) 10^3/ul Absolute Monos (auto) 1.0 H (0-0.8) 10^3/ul Absolute Eos (auto) 0.2 (0-0.6) 10^3/ul Absolute Basos (auto) 0.1 (0-0.2) 10^3/ul Absolute Nucleated RBC 0.01 10^3/ul Nucleated RBC % 0.1 Sodium 135 (133-145) mmol/L Potassium 3.4 L (3.5-5.0) mmol/L Chloride 96 L (101-111) mmol/L Carbon Dioxide 33 H (22-32) mmol/L Anion Gap 6 (2-11) mmol/L BUN 15 (6-24) mg/dL Creatinine 0.92 (0.67-1.17) mg/dL Est GFR ( Amer) 101.5 (>60) Est GFR (Non-Af Amer) 79.0 (>60) BUN/Creatinine Ratio 16.3 (8-20) Glucose 116 H (70-100) mg/dL Calcium 9.2 (8.6-10.3) mg/dL Total Bilirubin 0.30 (0.2-1.0) mg/dL AST 15 (13-39) U/L ALT 12 (7-52) U/L Alkaline Phosphatase 91 (34-104) U/L C-Reactive Protein 44.79 H (< 5.00) mg/L Total Protein 6.4 (6.4-8.9) g/dL Albumin 3.2 (3.2-5.2) g/dL Globulin 3.2 (2-4) g/dL Albumin/Globulin Ratio 1.0 (1-3) Assess/Plan/Problems-Billing Assessment: 81 yo M h/o esophageal adenocarcinoma now with complete esophageal obstruction, PEG dependant for nutrition and medication admitted with dislodged PEG and surrounding cellulitis with PEG now replaced in IR - Patient Problems (1) PEG (percutaneous endoscopic gastrostomy) adjustment/replacement/removal Comment: PEG removed by Dr. Giordano 12/17 and replaced with coude catheter PEG placed in IR 12/18 OK to use peg (2) Cellulitis Comment: c/w ancef (3) Bursitis Comment: noted over right elbow by nursing. Minimal pain when palpated. Ortho consulted (4) Adenocarcinoma of esophagus Comment: no further therapy discharged from hospice (5) DVT prophylaxis Comment: lovenox (6) DNR (do not resuscitate)
[2016-12-18] MEDS: CMCS: Venlafaxine TAB (NF) 25 MG TAB G TUBE SCH (20:34)
[2016-12-18] MEDS: methylPREDNISolone TAB* 4 MG G TUBE SCH (20:34)
[2016-12-18] MEDS: Sucralfate SUSP 1 GM/10 ml 10 ML UDC G TUBE SCH (20:34)
[2016-12-18] MEDS: Gabapentin CAP(*) 100 MG SCH (20:34)
[2016-12-18] MEDS ORDERED: oxyCODONE SR TAB(*) 20 MG TAB.SR SCH (21:00)
[2016-12-19] MEDS: Sucralfate SUSP 1 GM/10 ml 10 ML UDC G TUBE SCH ×4 (00:01→17:54)
[2016-12-19] MEDS: D5W 1/2 NS 1000 ML BAG* 1,000 ML IV SCH (04:10)
[2016-12-19] MEDS: ceFAZolin 1 GM in Dextrose (*) 1 GM/50 ML BAG IVPB SCH ×4 (05:19→17:54)
[2016-12-19] MEDS: Ondansetron INJ* 2 MG/ML VIAL IV PRN ×2 (07:03→15:55)
[2016-12-19] MEDS: Lansoprazole SOLUTAB* 30 MG G TUBE SCH (07:16)
[2016-12-19] MEDS: CMCS: Venlafaxine TAB (NF) 25 MG TAB G TUBE SCH ×2 (07:16→21:41)
[2016-12-19] MEDS: Gabapentin CAP(*) 100 MG SCH ×2 (07:16→21:41)
[2016-12-19] MEDS: Clopidogrel TAB* 75 MG SCH (07:16)
[2016-12-19] MEDS: Analgesic BALM* 114 GM TOPICAL SCH ×3 (07:17→21:55)
[2016-12-19] MEDS: Lisinopril TAB* 10 MG G TUBE SCH (07:17)
[2016-12-19] MEDS: methylPREDNISolone TAB* 4 MG G TUBE SCH ×2 (07:17→21:41)
[2016-12-19] MEDS: oxyCODONE ORAL.SOLN* 5 MG/5 ML UDC PRN ×2 (07:19→17:55)
[2016-12-19] MEDS: HYDROmorphone INJ* 1 MG/ML CARPUJECT SYRINGE IV SLOW PU PRN ×2 (11:16→21:36)
[2016-12-19] MEDS: Enoxaparin(*) 40 MG/0.4 ML SYR SUBCUT SCH (13:52)
--- NOTE | 2016-12-19 18:25 | PN ---
Subjective Date of Service: 12/19/16 Interval History: Episode of nausea this AM after jevity Tolerated food per peg later without complication Pain better controlled Objective Active Medications: Albuterol (Ventolin 2.5 Mg/3 Ml Neb.Gabi*) 2.5 mg INH Q2H PRN PRN Reason: SOB/WHEEZING Clopidogrel Bisulfate (Plavix Tab*) 75 mg .SEE ORDER DAILY [facility] Last Admin: 12/19/16 07:16 Dose: 75 mg Enoxaparin Sodium (Lovenox(*)) 40 mg SUBCUT Q24H [facility] Last Admin: 12/19/16 13:52 Dose: 40 mg Gabapentin (Neurontin Cap(*)) 200 mg .SEE ORDER BID [facility] Last Admin: 12/19/16 07:16 Dose: 200 mg Hydromorphone HCl (Dilaudid Iv*) 1 mg IV SLOW PU Q2H PRN PRN Reason: PAIN Last Admin: 12/19/16 11:16 Dose: 1 mg Cefazolin Sodium/Dextrose (Kefzol 1 Gm In Dextrose Duplex (*)) 1 gm in 50 mls @ 200 mls/hr IVPB Q6H [facility] Last Admin: 12/19/16 17:54 Dose: 200 mls/hr Lansoprazole (Prevacid Solutab*) 30 mg G TUBE DAILY WITH MEAL [facility] Last Admin: 12/19/16 07:16 Dose: 30 mg Lisinopril (Prinivil Tab*) 10 mg G TUBE DAILY [facility] Last Admin: 12/19/16 07:17 Dose: 10 mg Lorazepam (Ativan Tab(*)) 0.5 mg G TUBE Q3HR PRN PRN Reason: ANXIETY Methylprednisolone (Medrol Tab*) 4 mg G TUBE BID [facility] Last Admin: 12/19/16 07:17 Dose: 4 mg Multi-Ingredient Liniment/Rub (Fernando Burns*) 1 applic TOPICAL TID [facility] Last Admin: 12/19/16 13:48 Dose: Not Given Ondansetron HCl (Zofran Inj*) 4 mg IV Q4H PRN PRN Reason: NAUSEA Last Admin: 12/19/16 15:55 Dose: 4 mg Oxycodone HCl (Oxycodone Oral.Soln*) 5 mg .SEE ORDER Q4H PRN PRN Reason: PAIN Last Admin: 12/19/16 17:55 Dose: 5 mg Sucralfate (Sucralfate Susp) 1 gm G TUBE Q6H [facility] Last Admin: 12/19/16 17:54 Dose: 1 gm Venlafaxine HCl (Effexor Tab (Nf)) 37.5 mg G TUBE Q12HR [facility] Last Admin: 12/19/16 07:16 Dose: 37.5 mg Vital Signs 12/18/16 12/18/16 12/18/16 19:48 20:00 20:34 Temperature 98.0 F Pulse Rate 82 Respiratory 16 16 18 Rate Blood Pressure 102/46 (mmHg) O2 Sat by Pulse 94 Oximetry 12/18/16 12/18/16 12/18/16 22:12 22:34 23:12 Temperature Pulse Rate Respiratory 16 16 16 Rate Blood Pressure (mmHg) O2 Sat by Pulse Oximetry 12/19/16 12/19/16 12/19/16 00:00 01:18 02:14 Temperature 100.4 F 98.6 F Pulse Rate 97 97 Respiratory 15 16 Rate Blood Pressure 123/48 (mmHg) O2 Sat by Pulse 90 92 Oximetry 12/19/16 12/19/16 12/19/16 07:16 07:19 07:28 Temperature 97.7 F Pulse Rate 85 Respiratory 18 18 20 Rate Blood Pressure 126/64 (mmHg) O2 Sat by Pulse 90 Oximetry 12/19/16 12/19/16 12/19/16 07:37 08:29 09:19 Temperature Pulse Rate 88 Respiratory 16 18 18 Rate Blood Pressure (mmHg) O2 Sat by Pulse 93 Oximetry 12/19/16 12/19/16 12/19/16 11:16 12:16 15:18 Temperature 98.0 F Pulse Rate 81 Respiratory 20 18 16 Rate Blood Pressure 78/37 (mmHg) O2 Sat by Pulse Oximetry 12/19/16 12/19/16 15:21 17:55 Temperature Pulse Rate Respiratory 18 Rate Blood Pressure 102/56 (mmHg) O2 Sat by Pulse Oximetry Oxygen Devices in Use Now: None Appearance: NAD Eyes: No Scleral Icterus, PERRLA Ears/Nose/Mouth/Throat: Clear Oropharnyx Neck: NL Appearance and Movements; NL JVP, Trachea Midline Respiratory: Symmetrical Chest Expansion and Respiratory Effort, Clear to Auscultation Cardiovascular: RRR Abdominal: - - PEG in place, small amount of drainage around exit site Extremities: No Edema Skin: - - cellulitis surrounding peg almost completely resolved Neurological: Alert and Oriented x 3 Result Diagrams: 12/16/16 11:00 12/16/16 11:00 Additional Lab and Data: Lab Results 12/16/16 12/16/16 Range/Units 11:00 11:00 WBC 8.1 (3.5-10.8) 10^3/ul RBC 3.73 L (4.0-5.4) 10^6/ul Hgb 11.7 L (14.0-18.0) g/dl Hct 36 L (42-52) % MCV 95 H (80-94) fL MCH 32 H (27-31) pg MCHC 33 (31-36) g/dl RDW 14 (10.5-15) % Plt Count 207 (150-450) 10^3/ul MPV 8 (7.4-10.4) um3 Neut % (Auto) 78.6 (38-83) % Lymph % (Auto) 6.4 L (25-47) % [place] % (Auto) 11.8 H (1-9) % Eos % (Auto) 2.4 (0-6) % Baso % (Auto) 0.8 (0-2) % Absolute Neuts (auto) 6.4 (1.5-7.7) 10^3/ul Absolute Lymphs (auto) 0.5 L (1.0-4.8) 10^3/ul Absolute Monos (auto) 1.0 H (0-0.8) 10^3/ul Absolute Eos (auto) 0.2 (0-0.6) 10^3/ul Absolute Basos (auto) 0.1 (0-0.2) 10^3/ul Absolute Nucleated RBC 0.01 10^3/ul Nucleated RBC % 0.1 Sodium 135 (133-145) mmol/L Potassium 3.4 L (3.5-5.0) mmol/L Chloride 96 L (101-111) mmol/L Carbon Dioxide 33 H (22-32) mmol/L Anion Gap 6 (2-11) mmol/L BUN 15 (6-24) mg/dL Creatinine 0.92 (0.67-1.17) mg/dL Est GFR ( Amer) 101.5 (>60) Est GFR (Non-Af Amer) 79.0 (>60) BUN/Creatinine Ratio 16.3 (8-20) Glucose 116 H (70-100) mg/dL Calcium 9.2 (8.6-10.3) mg/dL Total Bilirubin 0.30 (0.2-1.0) mg/dL AST 15 (13-39) U/L ALT 12 (7-52) U/L Alkaline Phosphatase 91 (34-104) U/L C-Reactive Protein 44.79 H (< 5.00) mg/L Total Protein 6.4 (6.4-8.9) g/dL Albumin 3.2 (3.2-5.2) g/dL Globulin 3.2 (2-4) g/dL Albumin/Globulin Ratio 1.0 (1-3) Assess/Plan/Problems-Billing Assessment: 81 yo M h/o esophageal adenocarcinoma now with complete esophageal obstruction, PEG dependant for nutrition and medication admitted with dislodged PEG and surrounding cellulitis with PEG now replaced in IR - Patient Problems (1) PEG (percutaneous endoscopic gastrostomy) adjustment/replacement/removal Comment: PEG removed by Dr. Giordano 12/17 and replaced with coude catheter PEG placed in IR 12/18 Small amount of drainage around PEG. May need upsizing in the future OK to use peg (2) Cellulitis Comment: c/w ancef (3) Bursitis Comment: noted over right elbow by nursing. Minimal pain when palpated. improved (4) Adenocarcinoma of esophagus Comment: no further therapy discharged from hospice (5) DVT prophylaxis Comment: lovenox (6) DNR (do not resuscitate)
[2016-12-20] MEDS: ceFAZolin 1 GM in Dextrose (*) 1 GM/50 ML BAG IVPB SCH ×2 (00:40→04:59)
[2016-12-20] MEDS: Sucralfate SUSP 1 GM/10 ml 10 ML UDC G TUBE SCH ×2 (00:48→05:07)
[2016-12-20] MEDS: HYDROmorphone INJ* 1 MG/ML CARPUJECT SYRINGE IV SLOW PU PRN ×2 (04:49→09:57)
[2016-12-20 09:56] VITALS: BP 106/58
[2016-12-20] MEDS: methylPREDNISolone TAB* 4 MG G TUBE SCH (10:00)
[2016-12-20] MEDS: Clopidogrel TAB* 75 MG SCH (10:01)
[2016-12-20] MEDS: CMCS: Venlafaxine TAB (NF) 25 MG TAB G TUBE SCH (10:01)
[2016-12-20] MEDS: Lansoprazole SOLUTAB* 30 MG G TUBE SCH (10:01)
[2016-12-20] MEDS: Analgesic BALM* 114 GM TOPICAL SCH (10:01)
[2016-12-20] MEDS: Lisinopril TAB* 10 MG G TUBE SCH (10:01)
[2016-12-20] MEDS: Gabapentin CAP(*) 100 MG SCH (10:02)
--- NOTE | 2016-12-20 10:43 | DS ---
DISCHARGE SUMMARY: DATE OF ADMISSION: 12/16/16 DATE OF DISCHARGE: 12/20/16 PRIMARY CARE PROVIDER: Dr. Nicole. PRIMARY DIAGNOSES: 1. Abdominal cellulitis. 2. Dislodged PEG tube with replacement. 3. Cellulitis. SECONDARY DIAGNOSES: Include: 1. Esophageal adenocarcinoma with complete esophageal obstruction. 2. Hypertension. 3. Chronic obstructive pulmonary disease. 4. History of coronary artery disease. 5. Peripheral vascular disease. 6. Type 2 diabetes. 7. Chronic pain. MEDICATIONS ON DISCHARGE: Unchanged from admission except for the addition of: 1. Ondansetron 4 mg every 6 hours as needed for nausea. 2. Keflex solution per PEG tube 500 mg 3 times a day for 4 additional days. All the following medications are per G-tube: 1. Lorazepam 0.5 mg every 3 hours as needed. 2. Gabapentin 200 mg twice daily. 3. Acetaminophen 650 mg 4 times a day. 4. Oxycodone 5 mg at bedtime as needed. 5. Oxycodone 5 mg every 3 hours as needed. 6. Oxycodone SR 20 mg twice daily standing. 7. Carafate 1 g every 6 hours. 8. Medrol 4 mg twice daily. 9. Lisinopril 10 mg daily. 10. Clopidogrel 75 mg daily. 11. Ensure Plus 5 times daily. 12. Effexor XR 37.5 mg twice daily. 13. Protonix 40 mg daily. 14. Albuterol nebulizer inhaled every 2 hours as needed for shortness of breath. PROCEDURES PERFORMED DURING HOSPITAL STAY: 1. Removal of PEG tube. 2. Placement of coude catheter. 3. Transition to PEG tube by interventional radiology. HISTORY OF PRESENT ILLNESS AND HOSPITAL COURSE: This is an 81-year-old man with past medical history as outlined in the history of present illness on the day of admission including esophageal adenocarcinoma, discharged from our facility to hospice, was doing well and was discharged from hospice. He is resident of [facility] and prior to his presentation, his PEG tube had become clogged. He was seen by Dr. Aguilar prior to the presentation and all of his medications had recently been changed to his PEG tube. He presented to the emergency room and his PEG tube was unclogged in the emergency room; however, it was noted with surrounding cellulitis. He was admitted to the hospital and diagnosed with cellulitis; however, later found that the PEG tube bumper was outside of the stomach and subcutaneously with a dislodged PEG tube. He was seen by Dr. Giordano who was able to remove the PEG tube at bedside and replace a coude catheter. The coude catheter was in the stomach as indicated after he was seen by Dr. Jalloh, Interventional Radiology, who transitioned the coude catheter to a PEG tube. The following day, he did have some discharge around the PEG tube, which may necessitate upsizing the PEG tube if it continues; however, on the day of discharge, there was no discharge or leakage around the PEG tube. The cellulitis for which he was admitted with was completely resolved on the day of discharge; however, he will continue for 4 more days of antibiotics to assure its resolution. On the day of discharge, the patient was interactive, pleasant, in no apparent distress. There was no surrounding erythema around the PEG tube. His pain was well controlled. At followup please; 1. Ensure adequate functioning of the PEG tube. 2. Please flush PEG tube with 30 cc sterile water after every can of ensure. 3. Flush PEG tube adequately after administration of medications. Reasons to return to the hospital include worsening of symptoms, recurrent cellulitis, inability for PEG tube to function, shortness of breath, nausea, vomiting, chest pain, loss of consciousness, near loss of consciousness, and inability to obtain or tolerate medications. CC: Dr. Nicole* [id number]/[facility] #: [id number] MTDD
== END 2016-12-20 12:00 | DRG 394 ==
LOC: ED 09:51 → MED 13:30 → OBSVTOIN 16:37
PROVIDERS: ADMIT Internal Medicine; ATTEND Internal Medicine
PROC: 0D20XUZ Change Feeding Device in Upper Intestinal Tract, External Approach (ICD-10-PCS; principal; 2016-12-18)
PROC: 3E0G76Z Introduction of Nutritional Substance into Upper GI, Via Natural or Artificial Opening (ICD-10-PCS; 2016-12-18)
PROC: 0D20XUZ Change Feeding Device in Upper Intestinal Tract, External Approach (ICD-10-PCS; 2016-12-18)
DX: K94.23 Gastrostomy malfunction (principal); L03.311 Cellulitis of abdominal wall; E11.51 Type 2 diabetes mellitus with diabetic peripheral angiopathy without gangrene; C16.0 Malignant neoplasm of cardia; I11.9 Hypertensive heart disease without heart failure; I25.10 Atherosclerotic heart disease of native coronary artery without angina pectoris; M70.31 Other bursitis of elbow, right elbow; J44.9 Chronic obstructive pulmonary disease, unspecified; G89.29 Other chronic pain; K22.2 Esophageal obstruction; I25.2 Old myocardial infarction; Z79.1 Long term (current) use of non-steroidal anti-inflammatories (NSAID); Z92.3 Personal history of irradiation; Z79.891 Long term (current) use of opiate analgesic; Z79.899 Other long term (current) drug therapy; Z88.8 Allergy status to other drugs, medicaments and biological substances; Z80.0 Family history of malignant neoplasm of digestive organs; Z82.49 Family history of ischemic heart disease and other diseases of the circulatory system; Z87.891 Personal history of nicotine dependence; Z66 Do not resuscitate; Z85.038 Personal history of other malignant neoplasm of large intestine
CPT/HCPCS: 36415; 49452; 74150; 76705; 80053; 85025; 86140; 87641; 94760; 99284; A9270-GY; C1769; J0690; J1170; J1650; J2270; J2405; J2920; J3010; J7509

== ENCOUNTER 2017-01-25 20:42 | Inpatient (IN) | payer MEDICARE, OTHER ==
[2017-01-25] MEDS ORDERED: NS 0.9% 1000 ML* 1,000 ML IV ONE (21:31)
--- NOTE | 2017-01-25 22:03 | RAD ---
Indication: Altered mental status. End stage esophageal cancer. On nasal oxygen. Comparison: January 27, 2016 PET/CT. Technique: Upright AP 2154 hours Report: Minimal prominence of interstitial markings. No alveolar consolidation, focal pulmonary lesion, pleural effusion, pneumothorax. Upper normal heart size. Unremarkable central pulmonary vasculature and mediastinal contours. RIGHT chest port tip at level of superior vena cava RIGHT atrial junction. Negative for free air beneath the diaphragm. IMPRESSION: No evidence for acute intrathoracic disease.
--- NOTE | 2017-01-25 22:09 | RAD ---
Indication: Altered mental status. Esophageal carcinoma. Comparison: No relevant prior exams available on the [facility]. Technique: Noncontrast CT vertex of skull through foramen magnum. Report: Partially calcified 2.8 cm transverse by 1.7 cm AP extra-axial lesion at the RIGHT para midline superior RIGHT anterior cranial fossa while not entirely specific most likely represents a meningioma. Only mild mass effect on the subjacent RIGHT frontal lobe with atrophy as indicated by diffuse moderate sulcal prominence mitigating against more significant mass effect. Mild prominence of the ventricles reflecting volume loss. Mild prominence of the cerebellar fissures. Patent basal cisterns. Decreased density in the periventricular and subcortical white matter while non-specific is most likely due to chronic microangiopathy. No additional extra or intra-axial lesions evident. Unremarkable orbital contents. No lesions of the calvarium or skull base evident. Clear visualized paranasal sinuses and mastoid air spaces. Unremarkable scalp. IMPRESSION: 1. Involutional change and stigmata of chronic small vessel ischemic disease. 2. Solitary partially calcified 2.8 cm transverse by 1.7 cm AP extra-axial lesion at the RIGHT para midline superior RIGHT anterior cranial fossa while not entirely specific most likely represents a meningioma. Only mild mass effect on the subjacent RIGHT frontal lobe. 3. No acute intracranial process evident.
[2017-01-25 22:32] LABS: Hematocrit 29 % (42-52); Hemoglobin 9.8 g/dl (14.0-18.0); Mean Corpuscular HGB Conc 34 g/dl (31-36); Mean Corpuscular Hemoglobin 30 pg (27-31); Mean Corpuscular Volume 90 fL (80-94); Mean Platelet Volume 8 um3 (7.4-10.4); Red Blood Count 3.22 10^6/ul (4.0-5.4); Red Cell Distribution Width 15 % (10.5-15); White Blood Count 9.4 10^3/ul (3.5-10.8)
[2017-01-25 22:36] LABS: Add Diff/Slide Review? Slide Review Added; Comments Flag Yes; Urine Bacteria Absent (Absent); Urine Bilirubin Negative (Negative); Urine Glucose Negative (Negative); Urine Nitrite Negative (Negative)
[2017-01-25 22:48] LABS: Albumin 3.2 g/dL (3.2-5.2); Globulin 3.1 g/dL (2-4); Potassium 5.5 mmol/L (3.5-5.0); Total Bilirubin 0.4 mg/dL (0.2-1.0); Total Protein 6.3 g/dL (6.4-8.9)
[2017-01-25 22:52] LABS: Troponin I 0.06 ng/mL (<0.04)
--- NOTE | 2017-01-26 00:35 | HP ---
H&P (Free Text) History and Physical: PCP: Blair Nicole MD Date/Time of Evaluation: 39 CC: confusion HPI: Mr Saravia is an 81YO male residing at [facility] who per family has been increasingly confused over the past 3days. He has had an upper respiratory infection and congestion. There is no report of chest pain, SOB, N/V/D, F/C, or other issues per family. He has a known obstructing lower GE junction tumor s/p placement of feeding tube & chemo-/radioTX. He was on Hospice, but graduated as he did not decline as rapidly as anticipated. Work up is negative or influenza. Labs appear significantly dehydrated with an increased troponin likely from demand ischemia. Vitals are stable. Radiologic work up reveals no acute findings. ECG shows mild lateral ST depression. I had an in depth conversation regarding goals of care. Essentially, his wishes are to be treated medically for anything identified, but no heroic measures. His MOLST was reviewed and updated. Regarding his trivially increased troponin, his daughter states that despite him being DNR/I, they would consider a stent, if the situation deteriorated from a cardiac standpoint & it were indicated. 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 DWYER OFFICE NOTE Omeprazole [From Prilosec] Allergy (Verified 12/16/16 09:53) Unknown Reaction Details Ambulatory Orders Nursing to reconcile. PSurgHx cardiac stent x2 fem-pop bypass hernia repair SocHx: former smoker quit ~15years ago w/ >50PYHX, no alcohol or recreational drugs; resides at [facility]; DNR/I, limited intervention; MOLST updated FamHx: positive for DM, HTN, CAD ROS: as above, otherwise reviewed and all were negative Constitutional: NAD, normally developed, overweight white male vitals: Vital Signs Temp 37.1 C 01/25/17 20:44 Pulse 105 01/25/17 22:39 Resp 22 01/25/17 20:44 BP 129/61 01/25/17 22:38 Pulse Ox 69 01/25/17 22:39 Intake & Output 01/25/17 01/25/17 01/26/17 11:59 23:59 11:59 Weight 78.018 kg HEENM: atraumatic; sclera/conjunctiva: non-icteric/clear; hearing: unable to fully assess, seems reasonably intact; oropharynx: clear, mucosa dry Neck: soft tissue: no nuchal rigidity; thyroid: normal Pulmonary: clear to auscultation bilaterally, fair aeration, no accessory muscle use CV: RR/RR, normal S1S2, no carotid bruit, no jugular venous distention, 2+ B DP/ PT, no edema Abdominal: soft, non-distended, non-tender, no rebound/guarding/rigidity, normoactive bowel sounds, no hepatosplenomegaly or masses, no costovertebral angle tenderness Musculoskeletal: general: grossly intact; gait: currently too confused & hypotensive to safely ambulate Integumental: normal appearance and texture of exposed skin Neurological moves x4; face symmetric Psychiatric orientation: AA&O to person only affect: delirious, mildly agitated mood: cooperative eye contact: poor content: minimal, unreliable responses: mildly slowed insight: poor Testing: Lab Results 01/25/17 01/25/17 01/25/17 Range/Units 22:20 22:20 22:20 WBC 9.4 (3.5-10.8) 10^3/ul RBC 3.22 L (4.0-5.4) 10^6/ul Hgb 9.8 L (14.0-18.0) g/dl Hct 29 L (42-52) % MCV 90 (80-94) fL MCH 30 (27-31) pg MCHC 34 (31-36) g/dl RDW 15 (10.5-15) % Plt Count 187 (150-450) 10^3/ul MPV 8 (7.4-10.4) um3 Neut % (Auto) 73.7 (38-83) % Lymph % (Auto) 6.0 L (25-47) % [place] % (Auto) 19.9 H (1-9) % Eos % (Auto) 0.2 (0-6) % Baso % (Auto) 0.2 (0-2) % Absolute Neuts (auto) 7.0 (1.5-7.7) 10^3/ul Absolute Lymphs (auto) 0.6 L (1.0-4.8) 10^3/ul Absolute Monos (auto) 1.9 H (0-0.8) 10^3/ul Absolute Eos (auto) 0 (0-0.6) 10^3/ul Absolute Basos (auto) 0 (0-0.2) 10^3/ul Absolute Nucleated RBC 0.01 10^3/ul Nucleated RBC % 0.1 INR (Anticoag Therapy) 1.09 (0.89-1.11) Sodium (133-145) mmol/L Potassium (3.5-5.0) mmol/L Chloride (101-111) mmol/L Carbon Dioxide (22-32) mmol/L Anion Gap (2-11) mmol/L BUN (6-24) mg/dL Creatinine (0.67-1.17) mg/dL Est GFR ( Amer) (>60) Est GFR (Non-Af Amer) (>60) BUN/Creatinine Ratio (8-20) Glucose (70-100) mg/dL Lactic Acid (0.5-2.0) mmol/L Calcium (8.6-10.3) mg/dL Total Bilirubin (0.2-1.0) mg/dL AST (13-39) U/L ALT (7-52) U/L Alkaline Phosphatase (34-104) U/L Troponin I (<0.04) ng/mL Total Protein (6.4-8.9) g/dL Albumin (3.2-5.2) g/dL Globulin (2-4) g/dL Albumin/Globulin Ratio (1-3) Urine Color Yellow Urine Appearance Clear Urine pH 8.0 (5-9) Ur Specific [place] 1.015 (1.010-1.030) Urine Protein 1+(30 mg/dl) H (Negative) Urine Ketones Negative (Negative) Urine Blood 1+ H (Negative) Urine Nitrate Negative (Negative) Urine Bilirubin Negative (Negative) Urine Urobilinogen Negative (Negative) Ur Leukocyte Esterase Negative (Negative) Urine WBC (Auto) 1+(6-10/hpf) H (Absent) Urine RBC (Auto) 3+(>10/hpf) H (Absent) Urine Bacteria Absent (Absent) Urine Glucose Negative (Negative) Urine Ascorbic Acid * H (Negative) Influenza A (Rapid) (Negative) Influenza B (Rapid) (Negative) 01/25/17 01/25/17 01/25/17 Range/Units 22:20 22:20 23:37 WBC (3.5-10.8) 10^3/ul RBC (4.0-5.4) 10^6/ul Hgb (14.0-18.0) g/dl Hct (42-52) % MCV (80-94) fL MCH (27-31) pg MCHC (31-36) g/dl RDW (10.5-15) % Plt Count (150-450) 10^3/ul MPV (7.4-10.4) um3 Neut % (Auto) (38-83) % Lymph % (Auto) (25-47) % [place] % (Auto) (1-9) % Eos % (Auto) (0-6) % Baso % (Auto) (0-2) % Absolute Neuts (auto) (1.5-7.7) 10^3/ul Absolute Lymphs (auto) (1.0-4.8) 10^3/ul Absolute Monos (auto) (0-0.8) 10^3/ul Absolute Eos (auto) (0-0.6) 10^3/ul Absolute Basos (auto) (0-0.2) 10^3/ul Absolute Nucleated RBC 10^3/ul Nucleated RBC % INR (Anticoag Therapy) (0.89-1.11) Sodium 123 L (133-145) mmol/L Potassium 5.5 H (3.5-5.0) mmol/L Chloride 89 L (101-111) mmol/L Carbon Dioxide 29 (22-32) mmol/L Anion Gap 5 (2-11) mmol/L BUN 62 H (6-24) mg/dL Creatinine 1.59 H (0.67-1.17) mg/dL Est GFR ( Amer) 54.0 (>60) Est GFR (Non-Af Amer) 42.0 (>60) BUN/Creatinine Ratio 39.0 H (8-20) Glucose 96 (70-100) mg/dL Lactic Acid 0.6 (0.5-2.0) mmol/L Calcium 9.0 (8.6-10.3) mg/dL Total Bilirubin 0.40 (0.2-1.0) mg/dL AST 42 H (13-39) U/L ALT 34 (7-52) U/L Alkaline Phosphatase 152 H (34-104) U/L Troponin I 0.06 H* (<0.04) ng/mL Total Protein 6.3 L (6.4-8.9) g/dL Albumin 3.2 (3.2-5.2) g/dL Globulin 3.1 (2-4) g/dL Albumin/Globulin Ratio 1.0 (1-3) Urine Color Urine Appearance Urine pH (5-9) Ur Specific [place] (1.010-1.030) Urine Protein (Negative) Urine Ketones (Negative) Urine Blood (Negative) Urine Nitrate (Negative) Urine Bilirubin (Negative) Urine Urobilinogen (Negative) Ur Leukocyte Esterase (Negative) Urine WBC (Auto) (Absent) Urine RBC (Auto) (Absent) Urine Bacteria (Absent) Urine Glucose (Negative) Urine Ascorbic Acid (Negative) Influenza A (Rapid) Negative (Negative) Influenza B (Rapid) Negative (Negative) ECG, personally reviewed: NSR rate 100, mild ST depression V4-6 CXR, personally reviewed: IMPRESSION: No evidence for acute intrathoracic disease. CT brain WO, personally reviewed: IMPRESSION: 1. Involutional change and stigmata of chronic small vessel ischemic disease. 2. Solitary partially calcified 2.8 cm transverse by 1.7 cm AP extra-axial lesion at the RIGHT para midline superior RIGHT anterior cranial fossa while not entirely specific most likely represents a meningioma. Only mild mass effect on the subjacent RIGHT frontal lobe. 3. No acute intracranial process evident. Impression: 81M HX obstructing esophageal CA presenting with an AALIYAH 2nd dehydration and elevated toponin suspected 2nd demand ischemia DIAGNOSIS & PLAN Primary dehydration w/ AALIYAH : IVFs, trend : supportive care elevated troponin : suspect demand ischemia : telemetry, trend : Patient is a DNR/I, but for now would accept stent, if indicated. Secondary obstructing esophageal CA : s/p chemo- & radioTX which he did not tolerate well : was enrolled in Hospice, graduated 2nd slower than expected decline : continue with Jevity 1.2 1can 5x daily : flush feeding tube w/ free 150cc free water 5x daily after Jevity erosive esophagitis : review meds once reconciled COPD : albuterol nebs PRN CAD/RI/stent x2 : review meds once reconciled DM2 : basal/correctional protocol HTN : review meds once reconciled HLD : review meds once reconciled PAOD s/p fem-pop bypass : review meds once reconciled Admission Rational: CDU observation for dehydration, AALIYAH, & elevated troponin DVTp: SCDs, heparin SQ Code Status: DNR/I, limited interventions; MOLST filled out HCP: daughter
[2017-01-26] MEDS ORDERED: Ondansetron INJ* 2 MG/ML VIAL IV PRN (00:38)
[2017-01-26] MEDS ORDERED: NS 0.9% 1000 ML* 1,000 ML IV SCH ×2 (00:45)
--- NOTE | 2017-01-26 00:49 | ED ---
Frank Tiwari Salem, scribed for Hilda Chavez MD on 01/25/17 at 2146 . Altered Mental Status - HPI Summary HPI Summary: Patient is a 81 y/o male who presents to the ED with restlessness and confusion since 3-4 days. Pt is an end stage esophageal CA patient. He was diagnosed in June 2015 and he received chemotherapy and radiation, went into remission, and in December 2015 his cancer returned. His daughter present at the bedside reports dysuria and slurred speech. She also reports he has not been opening his eyes. She states he has had PNA a couple of times and the flu four days ago. His oncologist is Dr. Yanez and his PCP is Dr. Nicole. Pt is not in hospice care, but has been in nursing homes for about a year. Family shares that they do not know where the CA is now but that they would like to (i.e. metathesis to the brain). Pt has COPD. - History Of Current Complaint Chief Complaint: EDGeneral Stated Complaint: GENERAL ILLNESS Time Seen by Provider: 01/25/17 21:12 Hx Obtained From: Family/Area Counselor - Daughter and son-in-law. Onset/Duration: Gradually - 3-4 days. Severity Initially: Moderate Severity Currently: Moderate Character: Confusion Aggravating Factor(s): Nothing Alleviating Factor(s): Nothing - Allergies/Home Medications Allergies/Adverse Reactions: Allergies Allergy/AdvReac Type Severity Reaction Status Date / Time Esomeprazole [From Nexium] Allergy Unknown Verified 12/16/16 09:53 Reaction Details Gabapentin Allergy Unknown Verified 12/16/16 09:53 Reaction Details Niacin [From Niaspan] Allergy SEVERE Verified 12/16/16 09:53 HEARTBURN- PER DR. 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, Other Cardiovascular Problems/Disorders - CAD, AAA Denies: Hx Congestive Heart Failure Respiratory History: Reports: Hx Chronic Obstructive Pulmonary Disease (COPD) Denies: Hx Asthma GI History: Reports: Hx Gastroesophageal Reflux Disease - HX OF, Other GI Disorders - HISTORY OF COLON CANCER- HAS DIARRHEA OFTEN Denies: Hx Ulcer History: Reports: Hx Kidney Stones Musculoskeletal History: Reports: Hx Arthritis - SHOULDERS Sensory History: Reports: Hx Cataracts, Hx Contacts or Glasses - READING GLASSES , Hx Hearing Problem Denies: Hx Hearing Aid Opthamlomology History: Reports: Hx Cataracts, Hx Contacts or Glasses - READING GLASSES Psychiatric History: Reports: Hx Depression - Cancer History Cancer Type, Location and Year: colon, esophageal Hx Chemotherapy: Yes Hx Radiation Therapy: Yes - Surgical History Surgery Procedure, Year, and Place: surgery for colon cancer -cardiac stents right inguinal hernia repair, vascular surgery-femerol artery-03/10-[facility] Anesthesia Reactions: No Infectious Disease History: No Infectious Disease History: Denies: Hx Clostridium Difficile, Hx Hepatitis, Hx Human Immunodeficiency Virus (HIV), Hx of Known/Suspected MRSA, Hx Shingles, Hx Tuberculosis, Hx Known/ Suspected VRE, Hx Known/Suspected VRSA, History Other Infectious Disease, Traveled Outside the [place] in Last 30 Days - Family History Family History: No FHx of malignant hyperthermia. No FHx of anesthesia reaction - Social History Alcohol Use: None Alcohol Amount: 1 BEER ON A HOT DAY Substance Use Type: Reports: None Smoking Status (MU): Former Smoker Amount Used/How Often: 1 1/2 PPD X 30+ YEARS Have You Smoked in the Last Year: No Review of Systems Negative: Fever Positive: dysuria Positive: Other - Broken rib from fall 3 weeks ago. Positive: Slurred Speech All Other Systems Reviewed And Are Negative: Yes Physical Exam - Summary Physical Exam Summary: PEG Tube is in place. Triage Information Reviewed: Yes Vital Signs On Initial Exam: Initial Vitals Temp Pulse Resp BP Pulse Ox 98.7 F 61 22 153/106 96 01/25/17 20:44 01/25/17 20:44 01/25/17 20:44 01/25/17 20:44 01/25/17 20:44 Vital Signs Reviewed: Yes Appearance: Positive: No Pain Distress Skin: Positive: Skin Color Reflects Adequate Perfusion, Dry Eyes: Positive: EOMI, TYE ENT: Positive: Pharynx normal Neck: Positive: Supple, Nontender Respiratory/Lung Sounds: Positive: Clear to Auscultation, Breath Sounds Present. Negative: Rales, Rhonchi, Wheezes Cardiovascular: Positive: RRR, Other - No gallop.. Negative: Murmur, Rub Abdomen Description: Positive: Nontender, Soft, Other: - No rebound.. Negative : Distended, Guarding Bowel Sounds: Positive: Present Musculoskeletal: Positive: Strength/ROM Intact. Negative: Edema Left, Edema Right Neurological: Positive: Sensory/Motor Intact, CN Intact II-III, Other - Follows command. Incomprehensible speech. Psychiatric: Positive: Affect/Mood Appropriate - Abel Coma Scale Coma Scale Total: 14 Diagnostics - Vital Signs Vital Signs Temp Pulse Resp BP Pulse Ox 01/25/17 20:44 98.7 F 61 22 153/106 96 - Laboratory Lab Results: Lab Results 01/25/17 01/25/17 01/25/17 Range/Units 22:20 22:20 22:20 WBC 9.4 (3.5-10.8) 10^3/ul RBC 3.22 L (4.0-5.4) 10^6/ul Hgb 9.8 L (14.0-18.0) g/dl Hct 29 L (42-52) % MCV 90 (80-94) fL MCH 30 (27-31) pg MCHC 34 (31-36) g/dl RDW 15 (10.5-15) % Plt Count 187 (150-450) 10^3/ul MPV 8 (7.4-10.4) um3 Neut % (Auto) 73.7 (38-83) % Lymph % (Auto) 6.0 L (25-47) % [place] % (Auto) 19.9 H (1-9) % Eos % (Auto) 0.2 (0-6) % Baso % (Auto) 0.2 (0-2) % Absolute Neuts (auto) 7.0 (1.5-7.7) 10^3/ul Absolute Lymphs (auto) 0.6 L (1.0-4.8) 10^3/ul Absolute Monos (auto) 1.9 H (0-0.8) 10^3/ul Absolute Eos (auto) 0 (0-0.6) 10^3/ul Absolute Basos (auto) 0 (0-0.2) 10^3/ul Absolute Nucleated RBC 0.01 10^3/ul Nucleated RBC % 0.1 INR (Anticoag Therapy) 1.09 (0.89-1.11) Sodium (133-145) mmol/L Potassium (3.5-5.0) mmol/L Chloride (101-111) mmol/L Carbon Dioxide (22-32) mmol/L Anion Gap (2-11) mmol/L BUN (6-24) mg/dL Creatinine (0.67-1.17) mg/dL Est GFR ( Amer) (>60) Est GFR (Non-Af Amer) (>60) BUN/Creatinine Ratio (8-20) Glucose (70-100) mg/dL Lactic Acid (0.5-2.0) mmol/L Calcium (8.6-10.3) mg/dL Total Bilirubin (0.2-1.0) mg/dL AST (13-39) U/L ALT (7-52) U/L Alkaline Phosphatase (34-104) U/L Troponin I (<0.04) ng/mL Total Protein (6.4-8.9) g/dL Albumin (3.2-5.2) g/dL Globulin (2-4) g/dL Albumin/Globulin Ratio (1-3) Urine Color Yellow Urine Appearance Clear Urine pH 8.0 (5-9) Ur Specific [place] 1.015 (1.010-1.030) Urine Protein 1+(30 mg/dl) H (Negative) Urine Ketones Negative (Negative) Urine Blood 1+ H (Negative) Urine Nitrate Negative (Negative) Urine Bilirubin Negative (Negative) Urine Urobilinogen Negative (Negative) Ur Leukocyte Esterase Negative (Negative) Urine WBC (Auto) 1+(6-10/hpf) H (Absent) Urine RBC (Auto) 3+(>10/hpf) H (Absent) Urine Bacteria Absent (Absent) Urine Glucose Negative (Negative) Urine Ascorbic Acid * H (Negative) Influenza A (Rapid) (Negative) Influenza B (Rapid) (Negative) 01/25/17 01/25/17 01/25/17 Range/Units 22:20 22:20 23:37 WBC (3.5-10.8) 10^3/ul RBC (4.0-5.4) 10^6/ul Hgb (14.0-18.0) g/dl Hct (42-52) % MCV (80-94) fL MCH (27-31) pg MCHC (31-36) g/dl RDW (10.5-15) % Plt Count (150-450) 10^3/ul MPV (7.4-10.4) um3 Neut % (Auto) (38-83) % Lymph % (Auto) (25-47) % [place] % (Auto) (1-9) % Eos % (Auto) (0-6) % Baso % (Auto) (0-2) % Absolute Neuts (auto) (1.5-7.7) 10^3/ul Absolute Lymphs (auto) (1.0-4.8) 10^3/ul Absolute Monos (auto) (0-0.8) 10^3/ul Absolute Eos (auto) (0-0.6) 10^3/ul Absolute Basos (auto) (0-0.2) 10^3/ul Absolute Nucleated RBC 10^3/ul Nucleated RBC % INR (Anticoag Therapy) (0.89-1.11) Sodium 123 L (133-145) mmol/L Potassium 5.5 H (3.5-5.0) mmol/L Chloride 89 L (101-111) mmol/L Carbon Dioxide 29 (22-32) mmol/L Anion Gap 5 (2-11) mmol/L BUN 62 H (6-24) mg/dL Creatinine 1.59 H (0.67-1.17) mg/dL Est GFR ( Amer) 54.0 (>60) Est GFR (Non-Af Amer) 42.0 (>60) BUN/Creatinine Ratio 39.0 H (8-20) Glucose 96 (70-100) mg/dL Lactic Acid 0.6 (0.5-2.0) mmol/L Calcium 9.0 (8.6-10.3) mg/dL Total Bilirubin 0.40 (0.2-1.0) mg/dL AST 42 H (13-39) U/L ALT 34 (7-52) U/L Alkaline Phosphatase 152 H (34-104) U/L Troponin I 0.06 H* (<0.04) ng/mL Total Protein 6.3 L (6.4-8.9) g/dL Albumin 3.2 (3.2-5.2) g/dL Globulin 3.1 (2-4) g/dL Albumin/Globulin Ratio 1.0 (1-3) Urine Color Urine Appearance Urine pH (5-9) Ur Specific [place] (1.010-1.030) Urine Protein (Negative) Urine Ketones (Negative) Urine Blood (Negative) Urine Nitrate (Negative) Urine Bilirubin (Negative) Urine Urobilinogen (Negative) Ur Leukocyte Esterase (Negative) Urine WBC (Auto) (Absent) Urine RBC (Auto) (Absent) Urine Bacteria (Absent) Urine Glucose (Negative) Urine Ascorbic Acid (Negative) Influenza A (Rapid) Negative (Negative) Influenza B (Rapid) Negative (Negative) Result Diagrams: 01/25/17 22:20 01/25/17 22:20 Lab Statement: Any lab studies that have been ordered have been reviewed, and results considered in the medical decision making process. - Radiology CXR Radiology Interpretation Completed By: Radiologist - IMPRESSION: No evidence for acute intrathoracic disease. - CT BRAIN CT Interpretation Completed By: Radiologist - IMPRESSION: 1. Involutional change and stigmata of chronic small vessel ischemic disease. 2. Solitary partially calcified 2.8 cm transverse by 1.7 cm AP extra-axial lesion at the RIGHT para midline superior RIGHT anterior cranial fossa while not entirely specific most likely represents a meningioma. Only mild mass effect on the subjacent RIGHT frontal lobe. 3. No acute intracranial process evident. - EKG 2130 EKG Rhythm: Sinus Tachycardia - at 100 bpm. EKG Interpretation: Anterior Q waves. No change from EKG from Sep 03, 2015. Re-Evaluation - Re-Evaluation First Eval Re-Evaluation Time: 23:01 Comment: Discussed results with caregivers and the option of admission. Altered Mental Statu Course/Dx - Course Course Of Treatment: 81 yo with esophageal ca end stage with delirium. borderline trop, new anemia and new dehydration, talked with Deep about observation with fluids - Diagnoses Discharge Diagnoses: Low hemoglobin, Dehydration, Meningioma - Provider Notifications Discussed Care Of Patient With: Dr. Adame (Hospitalist) @ [id number]. Discharge - Discharge Plan Condition: Stable Disposition: ADMITTED TO [facility] Patient Education Materials: Meningioma (ED), Dehydration (ED) Referrals: Diego Nicole MD [Primary Care Provider] - Additional Instructions: Follow up with PCP. The documentation as recorded by the Frank whitehead Salem accurately reflects the service I personally performed and the decisions made by me, Hilda Chavez MD.
[2017-01-26] MEDS ORDERED: Haloperidol INJ IV/IM* 5 MG/ML AMP IV SLOW PU ONE (05:00)
[2017-01-26 08:38] LABS: Hematocrit 27 % (42-52); Hemoglobin 9.2 g/dl (14.0-18.0); Mean Corpuscular HGB Conc 34 g/dl (31-36); Mean Corpuscular Hemoglobin 31 pg (27-31); Mean Corpuscular Volume 91 fL (80-94); Mean Platelet Volume 8 um3 (7.4-10.4); Red Blood Count 3.02 10^6/ul (4.0-5.4); Red Cell Distribution Width 15 % (10.5-15); White Blood Count 7.6 10^3/ul (3.5-10.8)
[2017-01-26 08:53] LABS: BUN/Creatinine Ratio 36.7 (8-20); Calcium 8.8 mg/dL (8.6-10.3); EGFR African American 69.4 (>60); EGFR Non-African American 53.9 (>60)
[2017-01-26] MEDS: Insulin LISPRO* 1 UNITS UNIT SUBCUT SCH ×4 (09:09→20:52)
[2017-01-26 09:10] LABS: Troponin I 0.05 ng/mL (<0.04)
--- NOTE | 2017-01-26 09:34 | PN ---
Subjective Date of Service: 01/26/17 Interval History: patient seen and evaluated at the bedside. alert, follows some commands, is able to tell me his name and but does not know where he is. Per nurses he has been very agitated. multiple loose stools throughout the day. He denies CP or SOB. Denies abdominal pain or nausea. spoke with daughter and son-in-law who agree with IVFs and see if the patient gets better - daughter reports diarrhea may be from IVFs as he has had his colon resected and frequently gets diarrhea with IVFs. No recent antibiotics. They would like an oncology consult and had an appointment with Dr. Yanez today for a follow up (the pt had not seen her in a year). The family states that it may guide care moving forward if he is "full of cancer". They also state if he were to decline they would want comfort care measures. Objective Active Medications: Acetaminophen (Tylenol Tab*) 650 mg .SEE ORDER Q6H PRN PRN Reason: FEVER/PAIN Albuterol (Ventolin 2.5 Mg/3 Ml Neb.Gabi*) 2.5 mg INH Q2H PRN PRN Reason: SOB/WHEEZING Docusate Sodium (Colace Cap*) 200 mg PO BID [facility] Heparin Sodium (Porcine) (Heparin Flush Port (Ivad)) 5 ml FLUSH DAILY [facility] PRN Reason: Protocol Sodium Chloride (Ns 0.9% 1000 Ml*) 1,000 mls @ 125 mls/hr IV PER RATE [facility] Last Admin: 01/26/17 06:41 Dose: 125 mls/hr Sodium Chloride (Ns 0.9% 1000 Ml*) 1,000 mls @ 0 mls/hr IV WIDE OPEN [facility] PRN Reason: Wide Open Last Admin: 01/26/17 01:19 Dose: 1,000 mls/hr Insulin Glargine (Lantus(*)) 16 units SUBCUT 2100 [facility] Stop: 01/27/17 20:00 Insulin Human Lispro (Humalog*) 0 units SUBCUT ACHS [facility] PRN Reason: Protocol Last Admin: 01/26/17 09:09 Dose: Not Given Melatonin (Melatonin (Nf)) 3 mg PO BEDTIME PRN; Protocol PRN Reason: Sleep Ondansetron HCl (Zofran Inj*) 4 mg IV Q6H PRN PRN Reason: NAUSEA Vital Signs 01/26/17 01/26/17 01/26/17 01:30 02:30 05:32 Temperature 99 F 99.1 F Pulse Rate 166 95 115 Respiratory 24 20 Rate Blood Pressure 106/56 100/21 106/55 (mmHg) O2 Sat by Pulse 97 94 99 Oximetry Oxygen Devices in Use Now: None Appearance: 81 yo male agitated, alert, confused Eyes: No Scleral Icterus, PERRLA Ears/Nose/Mouth/Throat: NL Teeth, Lips, Gums, Mucous Membranes Moist Neck: NL Appearance and Movements; NL JVP Respiratory: Symmetrical Chest Expansion and Respiratory Effort, Clear to Auscultation Cardiovascular: NL Sounds; No Murmurs; No JVD, RRR, No Edema Abdominal: NL Sounds; No Tenderness; No Distention Extremities: No Edema, No Clubbing, Cyanosis Skin: No Rash or Ulcers, No Nodules or Sclerosis Neurological: - - alert, follows some commands, Lines/Tubes/Other Access: Clean, Dry and Intact Peripheral IV, Clean, Dry and Intact Other Access - peg tube with tube feedings Nutrition: - - NPO Result Diagrams: 01/26/17 08:23 01/26/17 08:23 Additional Lab and Data: Lab Results 01/25/17 01/25/17 01/25/17 Range/Units 22:20 22:20 22:20 WBC 9.4 (3.5-10.8) 10^3/ul RBC 3.22 L (4.0-5.4) 10^6/ul Hgb 9.8 L (14.0-18.0) g/dl Hct 29 L (42-52) % MCV 90 (80-94) fL MCH 30 (27-31) pg MCHC 34 (31-36) g/dl RDW 15 (10.5-15) % Plt Count 187 (150-450) 10^3/ul MPV 8 (7.4-10.4) um3 Neut % (Auto) 73.7 (38-83) % Lymph % (Auto) 6.0 L (25-47) % [place] % (Auto) 19.9 H (1-9) % Eos % (Auto) 0.2 (0-6) % Baso % (Auto) 0.2 (0-2) % Absolute Neuts (auto) 7.0 (1.5-7.7) 10^3/ul Absolute Lymphs (auto) 0.6 L (1.0-4.8) 10^3/ul Absolute Monos (auto) 1.9 H (0-0.8) 10^3/ul Absolute Eos (auto) 0 (0-0.6) 10^3/ul Absolute Basos (auto) 0 (0-0.2) 10^3/ul Absolute Nucleated RBC 0.01 10^3/ul Nucleated RBC % 0.1 INR (Anticoag Therapy) 1.09 (0.89-1.11) Sodium (133-145) mmol/L Potassium (3.5-5.0) mmol/L Chloride (101-111) mmol/L Carbon Dioxide (22-32) mmol/L Anion Gap (2-11) mmol/L BUN (6-24) mg/dL Creatinine (0.67-1.17) mg/dL Est GFR ( Amer) (>60) Est GFR (Non-Af Amer) (>60) BUN/Creatinine Ratio (8-20) Glucose (70-100) mg/dL Lactic Acid (0.5-2.0) mmol/L Calcium (8.6-10.3) mg/dL Total Bilirubin (0.2-1.0) mg/dL AST (13-39) U/L ALT (7-52) U/L Alkaline Phosphatase (34-104) U/L Troponin I (<0.04) ng/mL Total Protein (6.4-8.9) g/dL Albumin (3.2-5.2) g/dL Globulin (2-4) g/dL Albumin/Globulin Ratio (1-3) Urine Color Yellow Urine Appearance Clear Urine pH 8.0 (5-9) Ur Specific [place] 1.015 (1.010-1.030) Urine Protein 1+(30 mg/dl) H (Negative) Urine Ketones Negative (Negative) Urine Blood 1+ H (Negative) Urine Nitrate Negative (Negative) Urine Bilirubin Negative (Negative) Urine Urobilinogen Negative (Negative) Ur Leukocyte Esterase Negative (Negative) Urine WBC (Auto) 1+(6-10/hpf) H (Absent) Urine RBC (Auto) 3+(>10/hpf) H (Absent) Urine Bacteria Absent (Absent) Urine Glucose Negative (Negative) Urine Ascorbic Acid * H (Negative) Influenza A (Rapid) (Negative) Influenza B (Rapid) (Negative) 01/25/17 01/25/17 01/25/17 Range/Units 22:20 22:20 23:37 WBC (3.5-10.8) 10^3/ul RBC (4.0-5.4) 10^6/ul Hgb (14.0-18.0) g/dl Hct (42-52) % MCV (80-94) fL MCH (27-31) pg MCHC (31-36) g/dl RDW (10.5-15) % Plt Count (150-450) 10^3/ul MPV (7.4-10.4) um3 Neut % (Auto) (38-83) % Lymph % (Auto) (25-47) % [place] % (Auto) (1-9) % Eos % (Auto) (0-6) % Baso % (Auto) (0-2) % Absolute Neuts (auto) (1.5-7.7) 10^3/ul Absolute Lymphs (auto) (1.0-4.8) 10^3/ul Absolute Monos (auto) (0-0.8) 10^3/ul Absolute Eos (auto) (0-0.6) 10^3/ul Absolute Basos (auto) (0-0.2) 10^3/ul Absolute Nucleated RBC 10^3/ul Nucleated RBC % INR (Anticoag Therapy) (0.89-1.11) Sodium 123 L (133-145) mmol/L Potassium 5.5 H (3.5-5.0) mmol/L Chloride 89 L (101-111) mmol/L Carbon Dioxide 29 (22-32) mmol/L Anion Gap 5 (2-11) mmol/L BUN 62 H (6-24) mg/dL Creatinine 1.59 H (0.67-1.17) mg/dL Est GFR ( Amer) 54.0 (>60) Est GFR (Non-Af Amer) 42.0 (>60) BUN/Creatinine Ratio 39.0 H (8-20) Glucose 96 (70-100) mg/dL Lactic Acid 0.6 (0.5-2.0) mmol/L Calcium 9.0 (8.6-10.3) mg/dL Total Bilirubin 0.40 (0.2-1.0) mg/dL AST 42 H (13-39) U/L ALT 34 (7-52) U/L Alkaline Phosphatase 152 H (34-104) U/L Troponin I 0.06 H* (<0.04) ng/mL Total Protein 6.3 L (6.4-8.9) g/dL Albumin 3.2 (3.2-5.2) g/dL Globulin 3.1 (2-4) g/dL Albumin/Globulin Ratio 1.0 (1-3) Urine Color Urine Appearance Urine pH (5-9) Ur Specific [place] (1.010-1.030) Urine Protein (Negative) Urine Ketones (Negative) Urine Blood (Negative) Urine Nitrate (Negative) Urine Bilirubin (Negative) Urine Urobilinogen (Negative) Ur Leukocyte Esterase (Negative) Urine WBC (Auto) (Absent) Urine RBC (Auto) (Absent) Urine Bacteria (Absent) Urine Glucose (Negative) Urine Ascorbic Acid (Negative) Influenza A (Rapid) Negative (Negative) Influenza B (Rapid) Negative (Negative) Microbiology and Other Data: Microbiology 01/26/17 04:53 Nasal Screen MRSA (PCR)(BEBETO) - Final Nasal Mrsa Negative Assess/Plan/Problems-Billing Assessment: 81 yo male with a 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 possible recent flu, and PNA? . - Patient Problems (1) Confusion Comment: - sepsis vs delirium?? Unclear source. Possible this was driven by a viral illness or decline in PO intake leading to dehydration. No leukocytosis, or fevers. Lactic acid negative. possible recent viral illness, now with diarrhea ( could be scondary to IVFs but will send stool studies and cdiff). - Influenza negative - chest xray: no evidence for acute disease - CT Brain: meningioma. no acute infarct. Will need to f/u with oncology - continue IVFs. Hold abx at this time. - recheck labs in am (2) Acute kidney injury Comment: - secondary to severe dehydration. Improving with IVFs - recheck in am (3) Hyponatremia Comment: - suspect severe dehydration, improving with IVFs. (4) Elevated troponin Comment: - 0.06, 0.05 - suspect demand ischemia - No CP - now in alutter - spoke to family will try to start low dose BB but pressures are soft. - CHADs2 Vasc score - 4 - Poor canidate for anticoagulation and family agrees. ASA was discontinued by hospice last year. (5) Esophagitis Comment: - Hx of erosive esophagitis (6) hx of obstructing esophageal tumor Comment: - continue Tube Feedings - oncology consult pending (7) Diabetes Comment: - FSBG Q4hrs with lispro SS and 16 units lantus daily (8) Fractured rib Comment: - feel OOB 3 weeks ago. (9) DNR (do not resuscitate) Comment: HSQ (10) DVT prophylaxis Status and Disposition: inpatient with confusion and dehydration. Pt may require palliative consult. Oncology consult pending.
[2017-01-26 09:47] LABS: Potassium 4.9 mmol/L (3.5-5.0)
[2017-01-26] MEDS: Docusate CAP* 100 MG PO SCH ×2 (10:29→20:59)
[2017-01-26] MEDS: Acetaminophen TAB* 325 MG PRN ×2 (13:10→20:51)
[2017-01-26] MEDS: Heparin VIAL(*) 5000 UNITS/ML VIAL (FIVE THOUSAND) SUBCUT SCH ×2 (13:13→22:41)
[2017-01-26] MEDS: NS 0.9% 1000 ML* 1,000 ML IV SCH (18:12)
[2017-01-26] MEDS ORDERED: Insulin GLARGINE(*) 1 UNITS UNIT SUBCUT SCH (21:00)
[2017-01-26] MEDS: CMCS: Melatonin (NF) 3 MG TAB PO PRN (22:41)
[2017-01-27] MEDS: Acetaminophen TAB* 325 MG PRN ×2 (02:21→12:04)
[2017-01-27] MEDS: NS 0.9% 1000 ML* 1,000 ML IV SCH ×2 (03:55→15:37)
[2017-01-27] MEDS: Heparin VIAL(*) 5000 UNITS/ML VIAL (FIVE THOUSAND) SUBCUT SCH ×3 (06:10→21:48)
[2017-01-27 07:19] LABS: Hematocrit 27 % (42-52); Mean Corpuscular HGB Conc 34 g/dl (31-36); Mean Corpuscular Hemoglobin 31 pg (27-31); Mean Corpuscular Volume 91 fL (80-94); Mean Platelet Volume 8 um3 (7.4-10.4); Red Blood Count 2.92 10^6/ul (4.0-5.4); Red Cell Distribution Width 15 % (10.5-15); White Blood Count 5.9 10^3/ul (3.5-10.8)
[2017-01-27 07:31] LABS: BUN/Creatinine Ratio 35.1 (8-20); Calcium 8.5 mg/dL (8.6-10.3); EGFR African American 95.5 (>60); EGFR Non-African American 74.3 (>60); Potassium 4.2 mmol/L (3.5-5.0)
--- NOTE | 2017-01-27 09:17 | PN ---
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 Went to hospice at [facility]. He stabilized and has been off hospice. Admitted with delirium. Subjective: [] Appears improved this am on my visit. He was following commands. New he was in the hospital though not why he was admitted. He did not know month, he knew he did not know and oriented to year. Acetaminophen (Tylenol Tab*) 650 mg .SEE ORDER Q6H PRN PRN Reason: FEVER/PAIN Last Admin: 01/27/17 02:21 Dose: 650 mg Albuterol (Ventolin 2.5 Mg/3 Ml Neb.Gabi*) 2.5 mg INH Q2H PRN PRN Reason: SOB/WHEEZING Docusate Sodium (Colace Cap*) 200 mg PO BID [facility] Last Admin: 01/26/17 20:59 Dose: Not Given Heparin Sodium (Porcine) (Heparin Flush Port (Ivad)) 5 ml FLUSH DAILY [facility] PRN Reason: Protocol Last Admin: 01/26/17 10:29 Dose: Not Given Heparin Sodium (Porcine) (Heparin Vial(*)) 5,000 units SUBCUT Q8HR [facility] Last Admin: 01/27/17 06:10 Dose: 5,000 units Sodium Chloride (Ns 0.9% 1000 Ml*) 1,000 mls @ 0 mls/hr IV WIDE OPEN [facility] PRN Reason: Wide Open Last Admin: 01/26/17 01:19 Dose: 1,000 mls/hr Sodium Chloride (Ns 0.9% 1000 Ml*) 1,000 mls @ 100 mls/hr IV PER RATE [facility] Last Admin: 01/27/17 03:55 Dose: 100 mls/hr Insulin Glargine (Lantus(*)) 16 units SUBCUT 2100 [facility] Stop: 01/27/17 20:00 Last Admin: 01/26/17 20:52 Dose: 16 unit Insulin Human Lispro (Humalog*) 0 units SUBCUT ACHS [facility] PRN Reason: Protocol Last Admin: 01/26/17 20:52 Dose: 2 unit Melatonin (Melatonin (Nf)) 3 mg PO BEDTIME PRN; Protocol PRN Reason: Sleep Last Admin: 01/26/17 22:41 Dose: 3 mg Metoprolol Tartrate (Lopressor Iv*) 5 mg IV Q6H PRN PRN Reason: BLOOD PRESSURE Ondansetron HCl (Zofran Inj*) 4 mg IV Q6H PRN PRN Reason: NAUSEA Objective: [] Vital Signs Temp Pulse Resp BP Pulse Ox 97.5 F 86 16 97/41 93 01/27/17 07:40 01/27/17 07:40 01/27/17 07:40 01/27/17 07:40 01/27/17 07:40 HEENT: Mucosa moist, no jaundice CTA RRR S1S2 good BS, NT/ND Peg Neuro as above, lying in bed and motor exan not done Assessment: 81 year old with locally advanced esophogeal cancer treated with radiation. Not a candidate for further therapy but may have continued stable disease after XRT. Acute delirium of unclear etiology. [] Plan: []1. Check CT scan to re-stage esophageal cancer, if new liver lesions he will be a candidate for hospice. 2. Delirium appears to be improving, though could be fluctuation. 3. Continue PEG feeds.
[2017-01-27] MEDS: Docusate CAP* 100 MG PO SCH ×2 (10:20→21:29)
--- NOTE | 2017-01-27 11:07 | PN ---
Subjective Date of Service: 01/27/17 Interval History: Patient seen and examined at bedside. He is initially sleeping but responds to verbal stimuli. He responds "no" when asked if he is having any pain, trouble breathing, or other discomfort. He squeezes my hands when asked. He denies abd pain n/v. He is able to tell me his name and . Nursing reports some loose stools following tube feeds. Patient has also c/o rib pain. Family History: Unchanged from Admission Social History: Unchanged from Admission Past Medical History: Unchanged from Admission Objective Active Medications: Acetaminophen (Tylenol Tab*) 650 mg .SEE ORDER Q6H PRN PRN Reason: FEVER/PAIN Last Admin: 01/27/17 02:21 Dose: 650 mg Albuterol (Ventolin 2.5 Mg/3 Ml Neb.Gabi*) 2.5 mg INH Q2H PRN PRN Reason: SOB/WHEEZING Docusate Sodium (Colace Cap*) 200 mg PO BID [facility] Last Admin: 01/27/17 10:20 Dose: Not Given Heparin Sodium (Porcine) (Heparin Flush Port (Ivad)) 5 ml FLUSH DAILY [facility] PRN Reason: Protocol Last Admin: 01/27/17 10:20 Dose: Not Given Heparin Sodium (Porcine) (Heparin Vial(*)) 5,000 units SUBCUT Q8HR [facility] Last Admin: 01/27/17 06:10 Dose: 5,000 units Sodium Chloride (Ns 0.9% 1000 Ml*) 1,000 mls @ 0 mls/hr IV WIDE OPEN [facility] PRN Reason: Wide Open Last Admin: 01/26/17 01:19 Dose: 1,000 mls/hr Sodium Chloride (Ns 0.9% 1000 Ml*) 1,000 mls @ 100 mls/hr IV PER RATE [facility] Last Admin: 01/27/17 03:55 Dose: 100 mls/hr Insulin Glargine (Lantus(*)) 16 units SUBCUT 2100 [facility] Stop: 01/27/17 20:00 Last Admin: 01/26/17 20:52 Dose: 16 unit Insulin Human Lispro (Humalog*) 0 units SUBCUT ACHS [facility] PRN Reason: Protocol Last Admin: 01/26/17 20:52 Dose: 2 unit Melatonin (Melatonin (Nf)) 3 mg PO BEDTIME PRN; Protocol PRN Reason: Sleep Last Admin: 01/26/17 22:41 Dose: 3 mg Metoprolol Tartrate (Lopressor Iv*) 5 mg IV Q6H PRN PRN Reason: BLOOD PRESSURE Ondansetron HCl (Zofran Inj*) 4 mg IV Q6H PRN PRN Reason: NAUSEA Vital Signs 01/26/17 01/26/17 01/26/17 11:14 15:28 20:00 Temperature 97.8 F Pulse Rate 121 99 Respiratory 22 18 20 Rate Blood Pressure 107/63 101/55 (mmHg) O2 Sat by Pulse 100 98 Oximetry 01/26/17 01/26/17 01/27/17 20:38 20:49 00:13 Temperature 98.4 F 97.9 F Pulse Rate 52 144 Respiratory 18 20 20 Rate Blood Pressure 111/55 76/23 (mmHg) O2 Sat by Pulse 81 80 Oximetry 01/27/17 01/27/17 01/27/17 01:44 02:58 07:40 Temperature 98.1 F 97.5 F Pulse Rate 90 92 86 Respiratory 20 16 Rate Blood Pressure 97/50 112/30 97/41 (mmHg) O2 Sat by Pulse 100 99 93 Oximetry Oxygen Devices in Use Now: None Appearance: Older male patient, lying in bed, arousable, confused, but following commands Eyes: No Scleral Icterus, PERRLA Ears/Nose/Mouth/Throat: Clear Oropharnyx Neck: NL Appearance and Movements; NL JVP Respiratory: Symmetrical Chest Expansion and Respiratory Effort, Clear to Auscultation Cardiovascular: NL Sounds; No Murmurs; No JVD, RRR Abdominal: NL Sounds; No Tenderness; No Distention, - - peg tube Extremities: No Edema, No Clubbing, Cyanosis Skin: No Rash or Ulcers Neurological: - - Alert, follows some commands, with periods of agitation, confused Lines/Tubes/Other Access: Clean, Dry and Intact Peripheral IV Result Diagrams: 01/27/17 06:45 01/27/17 06:45 Additional Lab and Data: Lab Results 01/25/17 01/25/17 01/25/17 Range/Units 22:20 22:20 22:20 WBC 9.4 (3.5-10.8) 10^3/ul RBC 3.22 L (4.0-5.4) 10^6/ul Hgb 9.8 L (14.0-18.0) g/dl Hct 29 L (42-52) % MCV 90 (80-94) fL MCH 30 (27-31) pg MCHC 34 (31-36) g/dl RDW 15 (10.5-15) % Plt Count 187 (150-450) 10^3/ul MPV 8 (7.4-10.4) um3 Neut % (Auto) 73.7 (38-83) % Lymph % (Auto) 6.0 L (25-47) % [place] % (Auto) 19.9 H (1-9) % Eos % (Auto) 0.2 (0-6) % Baso % (Auto) 0.2 (0-2) % Absolute Neuts (auto) 7.0 (1.5-7.7) 10^3/ul Absolute Lymphs (auto) 0.6 L (1.0-4.8) 10^3/ul Absolute Monos (auto) 1.9 H (0-0.8) 10^3/ul Absolute Eos (auto) 0 (0-0.6) 10^3/ul Absolute Basos (auto) 0 (0-0.2) 10^3/ul Absolute Nucleated RBC 0.01 10^3/ul Nucleated RBC % 0.1 INR (Anticoag Therapy) 1.09 (0.89-1.11) Sodium (133-145) mmol/L Potassium (3.5-5.0) mmol/L Chloride (101-111) mmol/L Carbon Dioxide (22-32) mmol/L Anion Gap (2-11) mmol/L BUN (6-24) mg/dL Creatinine (0.67-1.17) mg/dL Est GFR ( Amer) (>60) Est GFR (Non-Af Amer) (>60) BUN/Creatinine Ratio (8-20) Glucose (70-100) mg/dL Lactic Acid (0.5-2.0) mmol/L Calcium (8.6-10.3) mg/dL Total Bilirubin (0.2-1.0) mg/dL AST (13-39) U/L ALT (7-52) U/L Alkaline Phosphatase (34-104) U/L Troponin I (<0.04) ng/mL Total Protein (6.4-8.9) g/dL Albumin (3.2-5.2) g/dL Globulin (2-4) g/dL Albumin/Globulin Ratio (1-3) Urine Color Yellow Urine Appearance Clear Urine pH 8.0 (5-9) Ur Specific [place] 1.015 (1.010-1.030) Urine Protein 1+(30 mg/dl) H (Negative) Urine Ketones Negative (Negative) Urine Blood 1+ H (Negative) Urine Nitrate Negative (Negative) Urine Bilirubin Negative (Negative) Urine Urobilinogen Negative (Negative) Ur Leukocyte Esterase Negative (Negative) Urine WBC (Auto) 1+(6-10/hpf) H (Absent) Urine RBC (Auto) 3+(>10/hpf) H (Absent) Urine Bacteria Absent (Absent) Urine Glucose Negative (Negative) Urine Ascorbic Acid * H (Negative) Influenza A (Rapid) (Negative) Influenza B (Rapid) (Negative) 01/25/17 01/25/17 01/25/17 Range/Units 22:20 22:20 23:37 WBC (3.5-10.8) 10^3/ul RBC (4.0-5.4) 10^6/ul Hgb (14.0-18.0) g/dl Hct (42-52) % MCV (80-94) fL MCH (27-31) pg MCHC (31-36) g/dl RDW (10.5-15) % Plt Count (150-450) 10^3/ul MPV (7.4-10.4) um3 Neut % (Auto) (38-83) % Lymph % (Auto) (25-47) % [place] % (Auto) (1-9) % Eos % (Auto) (0-6) % Baso % (Auto) (0-2) % Absolute Neuts (auto) (1.5-7.7) 10^3/ul Absolute Lymphs (auto) (1.0-4.8) 10^3/ul Absolute Monos (auto) (0-0.8) 10^3/ul Absolute Eos (auto) (0-0.6) 10^3/ul Absolute Basos (auto) (0-0.2) 10^3/ul Absolute Nucleated RBC 10^3/ul Nucleated RBC % INR (Anticoag Therapy) (0.89-1.11) Sodium 123 L (133-145) mmol/L Potassium 5.5 H (3.5-5.0) mmol/L Chloride 89 L (101-111) mmol/L Carbon Dioxide 29 (22-32) mmol/L Anion Gap 5 (2-11) mmol/L BUN 62 H (6-24) mg/dL Creatinine 1.59 H (0.67-1.17) mg/dL Est GFR ( Amer) 54.0 (>60) Est GFR (Non-Af Amer) 42.0 (>60) BUN/Creatinine Ratio 39.0 H (8-20) Glucose 96 (70-100) mg/dL Lactic Acid 0.6 (0.5-2.0) mmol/L Calcium 9.0 (8.6-10.3) mg/dL Total Bilirubin 0.40 (0.2-1.0) mg/dL AST 42 H (13-39) U/L ALT 34 (7-52) U/L Alkaline Phosphatase 152 H (34-104) U/L Troponin I 0.06 H* (<0.04) ng/mL Total Protein 6.3 L (6.4-8.9) g/dL Albumin 3.2 (3.2-5.2) g/dL Globulin 3.1 (2-4) g/dL Albumin/Globulin Ratio 1.0 (1-3) Urine Color Urine Appearance Urine pH (5-9) Ur Specific [place] (1.010-1.030) Urine Protein (Negative) Urine Ketones (Negative) Urine Blood (Negative) Urine Nitrate (Negative) Urine Bilirubin (Negative) Urine Urobilinogen (Negative) Ur Leukocyte Esterase (Negative) Urine WBC (Auto) (Absent) Urine RBC (Auto) (Absent) Urine Bacteria (Absent) Urine Glucose (Negative) Urine Ascorbic Acid (Negative) Influenza A (Rapid) Negative (Negative) Influenza B (Rapid) Negative (Negative) Microbiology and Other Data: Microbiology 01/26/17 04:53 Nasal Screen MRSA (PCR)(BEBETO) - Final Nasal Mrsa Negative Assess/Plan/Problems-Billing Assessment: 81 yo male with a PMH 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 possible recent flu, and PNA? . - Patient Problems (1) Confusion Code(s): R41.0 - DISORIENTATION, UNSPECIFIED Comment: Unclear etiology. No clear s/s sepsis, may be secondary to dehydration or delirium. Start Seroquel for suspected delirium. Tramadol ordered for pain control, as pain may be contributing to delirium. Pt is afebrile, no leukocytosis. ? viral illness Patient has infrequent diarrhea, low suspicion for C. diff Influenza negative. Chest xray: no evidence for acute disease CT Brain: meningioma. No acute infarct. CT chest/abd/pelvis ordered by oncology. Continue IVFs. Hold abx at this time. (2) Acute kidney injury Code(s): N17.9 - ACUTE KIDNEY FAILURE, UNSPECIFIED Comment: Resolved, suspect secondary to severe dehydration. (3) Hyponatremia Code(s): E87.1 - HYPO-OSMOLALITY AND HYPONATREMIA Comment: Suspect severe dehydration, improving with IVFs. (4) Elevated troponin Code(s): R74.8 - ABNORMAL LEVELS OF OTHER SERUM ENZYMES Comment: 0.06, 0.05 - suspect demand ischemia No CP, now in atrial flutter - spoke to family, will try to start low dose BB but pressures are soft. CHADs2 Vasc score - 4 - Poor candidate for anticoagulation and family agrees. ASA was discontinued by hospice last year. (5) Esophagitis Code(s): K20.9 - ESOPHAGITIS, UNSPECIFIED Comment: Hx of erosive esophagitis (6) hx of obstructing esophageal tumor Comment: Continue Tube Feedings Oncology following, CT chest/abd/pelvis pending (7) Diabetes Code(s): E11.9 - TYPE 2 DIABETES MELLITUS WITHOUT COMPLICATIONS Comment: Controlled. FSBG Q4hrs with lispro SS and 16 units insulin glargine daily. (8) Fractured rib Code(s): S22.39XA - FRACTURE OF ONE RIB, UNSP SIDE, INIT FOR CLOS FX Comment: Fell OOB 3 weeks ago. (9) DVT prophylaxis Code(s): ZFR4125 - Comment: SQ heparin (10) DNR (do not resuscitate) Status and Disposition: Inpatient with confusion and dehydration. Pt may require palliative consult. CT scan pending. Oncology following.
[2017-01-27] MEDS: Insulin LISPRO* 1 UNITS UNIT SUBCUT SCH ×3 (11:51→21:28)
[2017-01-27] MEDS ORDERED: Morphine INJ* 2 MG/ML 1 ML CARPUJECT IV PRN (12:11)
[2017-01-27] MEDS ORDERED: Iodixanol* (CONTRAST) 320 MG/ML 100 ML SDV IV ONE (13:11)
[2017-01-27] MEDS ORDERED: traMADol TAB* 50 MG G TUBE PRN ×2 (15:26)
[2017-01-27] MEDS: traMADol TAB* 50 MG PEG TUBE PRN (16:46)
--- NOTE | 2017-01-27 16:58 | RAD ---
INDICATION: Esophageal cancer restaging. COMPARISON: Comparison is made with a prior CT of the chest, abdomen and pelvis from June 15, 2015 and with a prior PET/CT study from January 27, 2016. TECHNIQUE: A CT scan of the chest, abdomen and pelvis was performed with intravenous and oral contrast following intravenous injection of 79 ml of Visipaque 320 nonionic contrast. Contiguous axial sections were obtained from the lung apices through the symphysis pubis. Images were reconstructed in the coronal and sagittal planes. FINDINGS: There is increased density at the right lung apex unchanged from prior exams most consistent with pleural and parenchymal scarring. There is a small 0.5 cm nodule present in the right lower lobe best seen on image #[id number] of [id number] which is unchanged. There is mild increased density in the peripheral aspect of the left lower lobe which appears dependent suggestive of atelectasis. There are small bilateral pleural effusions present. There is a mildly enlarged lymph node present in the aorticopulmonary window measuring 1.0 cm in transverse dimension which has increased slightly in size from the prior studies and previously measured up to 0.7 cm in transverse dimension. No other enlarged mediastinal or hilar lymph nodes are seen. There is thickening of the wall of the distal esophagus which appears grossly unchanged. There are small hypodense lesions within the thyroid gland which are unchanged. The heart is within normal limits in size. No pericardial effusion is present. The thoracic aorta is normal in caliber. There is moderate calcific plaque present. The liver and spleen are normal in size without significant focal abnormality. No calcified gallstones are seen. There is fatty infiltration of the pancreas which is otherwise unremarkable. There are small bilateral calcified adrenal masses which appear unchanged measuring up to 1.7 cm on the right side and 1.6 cm on the left side. The right kidney appears small in size. This appears to be a new finding from the prior study. The left kidney appears to be within normal limits in size. There appears to be severe calcific plaque present within both renal arteries. There are couple small left renal cysts measuring up to 1.2 cm in size. The abdominal aorta is normal in caliber. There is moderate to severe calcific and soft plaque present. No significant enlarged mesenteric or retroperitoneal lymph nodes are seen. There is a percutaneous gastrostomy tube present within the body of the stomach. The stomach, small and large bowel appear nondistended. The appendix appears to be within normal limits. There is no evidence for diverticulitis or colitis.. There is anastomosis at the rectosigmoid junction. There is increased soft tissue density in that region measuring 2.5 x 1.8 cm in size suspicious for local recurrent disease. No free intraperitoneal air is seen. There is a small amount of free intraperitoneal fluid within the paracolic gutters and pelvis. 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 No significant focal osseous abnormalities are seen. IMPRESSION: 1. SMALL BILATERAL PLEURAL EFFUSIONS AND SMALL AMOUNT OF ASCITES. 2. THICKENING OF THE WALL OF THE DISTAL ESOPHAGUS WHICH APPEARS SIMILAR TO PRIOR STUDIES. 3. MILDLY ENLARGED AORTICOPULMONARY WINDOW LYMPH NODE SLIGHTLY INCREASED IN SIZE. 4. INCREASED SOFT TISSUE DENSITY AT THE RECTOSIGMOID ANASTOMOSIS SUSPICIOUS FOR RECURRENT DISEASE. 5. 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
[2017-01-27] MEDS: QUEtiapine TAB* 25 MG PEG TUBE SCH (18:20)
[2017-01-28] MEDS: CMCS: Melatonin (NF) 3 MG TAB PO PRN (00:36)
[2017-01-28] MEDS: traMADol TAB* 50 MG PEG TUBE PRN (00:36)
[2017-01-28] MEDS: Albuterol 2.5 MG/3 ML NEB.SOL* (0.083%) INH PRN ×2 (01:06→18:42)
[2017-01-28] MEDS ORDERED: NS 0.9% 1000 ML* 1,000 ML IV SCH (01:24)
[2017-01-28] MEDS ORDERED: Furosemide IV* 10 MG/ML 10 ML VIAL (100 MG) IV ONE ×2 (01:24→18:23)
[2017-01-28] MEDS: Acetaminophen TAB* 325 MG PRN (04:33)
[2017-01-28] MEDS: Heparin VIAL(*) 5000 UNITS/ML VIAL (FIVE THOUSAND) SUBCUT SCH ×3 (05:09→21:02)
[2017-01-28] MEDS: Metoprolol Tartrate IV* 1 MG/ML 5 ML VIAL IV PRN ×2 (05:10→21:02)
[2017-01-28 05:50] LABS: BUN/Creatinine Ratio 24.1 (8-20); Calcium 8.1 mg/dL (8.6-10.3); EGFR African American 121.1 (>60); EGFR Non-African American 94.1 (>60); Potassium 3.4 mmol/L (3.5-5.0)
[2017-01-28] MEDS ORDERED: Potassium Chloride LIQUID* 20 MEQ PACKET PEG TUBE ONE (07:28)
[2017-01-28] MEDS: QUEtiapine TAB* 25 MG PEG TUBE SCH (08:06)
[2017-01-28] MEDS: Docusate CAP* 100 MG PO SCH ×2 (08:57→19:38)
[2017-01-28] MEDS: Insulin LISPRO* 1 UNITS UNIT SUBCUT SCH ×4 (09:18→21:02)
--- NOTE | 2017-01-28 11:29 | PN ---
Subjective Date of Service: 01/28/17 Interval History: Patient seen and examined at bedside. Mr. Saravia appears improved this morning and is able to follow commands and appropriately answer questions. He denies CP , SOB, abd pain, n/v. He is able to make his needs known. Family History: Unchanged from Admission Social History: Unchanged from Admission Past Medical History: Unchanged from Admission Objective Active Medications: Acetaminophen (Tylenol Tab*) 650 mg .SEE ORDER Q6H PRN PRN Reason: FEVER/PAIN Last Admin: 01/28/17 04:33 Dose: 650 mg Albuterol (Ventolin 2.5 Mg/3 Ml Neb.Gabi*) 2.5 mg INH Q2H PRN PRN Reason: SOB/WHEEZING Last Admin: 01/28/17 01:06 Dose: 2.5 mg Docusate Sodium (Colace Cap*) 200 mg PO BID [facility] Last Admin: 01/28/17 08:57 Dose: Not Given Heparin Sodium (Porcine) (Heparin Flush Port (Ivad)) 5 ml FLUSH DAILY [facility] PRN Reason: Protocol Last Admin: 01/28/17 09:07 Dose: Not Given Heparin Sodium (Porcine) (Heparin Vial(*)) 5,000 units SUBCUT Q8HR [facility] Last Admin: 01/28/17 05:09 Dose: 5,000 units Sodium Chloride (Ns 0.9% 1000 Ml*) 1,000 mls @ 30 mls/hr IV PER RATE [facility] Insulin Human Lispro (Humalog*) 0 units SUBCUT ACHS [facility] PRN Reason: Protocol Last Admin: 01/28/17 09:18 Dose: 1 unit Melatonin (Melatonin (Nf)) 3 mg PO BEDTIME PRN; Protocol PRN Reason: Sleep Last Admin: 01/28/17 00:36 Dose: 3 mg Metoprolol Tartrate (Lopressor Iv*) 5 mg IV Q6H PRN PRN Reason: BLOOD PRESSURE Last Admin: 01/28/17 05:10 Dose: 5 mg Ondansetron HCl (Zofran Inj*) 4 mg IV Q6H PRN PRN Reason: NAUSEA Quetiapine Fumarate (Seroquel Tab*) 25 mg PEG TUBE DAILY [facility] Last Admin: 01/28/17 08:06 Dose: 25 mg Tramadol HCl (Ultram*) 50 mg PEG TUBE Q6H PRN PRN Reason: PAIN - MILD TO MODERATE Last Admin: 01/28/17 00:36 Dose: 50 mg Tramadol HCl (Ultram*) 100 mg PEG TUBE Q6H PRN PRN Reason: PAIN - MODERATE TO SEVERE Vital Signs 01/27/17 01/27/17 01/27/17 12:00 12:37 12:45 Temperature Pulse Rate Respiratory 22 20 18 Rate Blood Pressure (mmHg) O2 Sat by Pulse Oximetry 01/27/17 01/27/17 01/27/17 13:27 14:15 14:19 Temperature Pulse Rate Respiratory 20 18 21 Rate Blood Pressure (mmHg) O2 Sat by Pulse Oximetry 01/27/17 01/27/17 01/27/17 16:03 16:46 18:20 Temperature 97.7 F Pulse Rate 88 Respiratory 20 16 18 Rate Blood Pressure 137/62 (mmHg) O2 Sat by Pulse 97 Oximetry 01/27/17 01/27/17 01/27/17 20:00 20:12 23:26 Temperature 98.0 F 97.9 F Pulse Rate 91 91 Respiratory 16 18 20 Rate Blood Pressure 106/43 120/53 (mmHg) O2 Sat by Pulse 98 Oximetry 01/28/17 01/28/17 01/28/17 00:36 01:10 02:36 Temperature Pulse Rate Respiratory 24 22 Rate Blood Pressure (mmHg) O2 Sat by Pulse 98 Oximetry 01/28/17 01/28/17 03:20 09:35 Temperature Pulse Rate 25 98 Respiratory 20 18 Rate Blood Pressure 124/53 (mmHg) O2 Sat by Pulse 90 93 Oximetry Oxygen Devices in Use Now: None Appearance: Elderly male, OOB to chair, restless but following commands. Eyes: PERRLA Ears/Nose/Mouth/Throat: Mucous Membranes Moist Neck: NL Appearance and Movements; NL JVP Respiratory: Symmetrical Chest Expansion and Respiratory Effort, - - mild expiratory wheezing in bases Cardiovascular: NL Sounds; No Murmurs; No JVD, RRR Abdominal: NL Sounds; No Tenderness; No Distention - Peg tube Extremities: No Edema, No Clubbing, Cyanosis Skin: No Rash or Ulcers Neurological: - - alert, oriented to self and place, able to make needs known and follow commands Lines/Tubes/Other Access: Clean, Dry and Intact Peripheral IV Result Diagrams: 01/27/17 06:45 01/28/17 05:00 Additional Lab and Data: Lab Results 01/25/17 01/25/17 01/25/17 Range/Units 22:20 22:20 22:20 WBC 9.4 (3.5-10.8) 10^3/ul RBC 3.22 L (4.0-5.4) 10^6/ul Hgb 9.8 L (14.0-18.0) g/dl Hct 29 L (42-52) % MCV 90 (80-94) fL MCH 30 (27-31) pg MCHC 34 (31-36) g/dl RDW 15 (10.5-15) % Plt Count 187 (150-450) 10^3/ul MPV 8 (7.4-10.4) um3 Neut % (Auto) 73.7 (38-83) % Lymph % (Auto) 6.0 L (25-47) % Kinney % (Auto) 19.9 H (1-9) % Eos % (Auto) 0.2 (0-6) % Baso % (Auto) 0.2 (0-2) % Absolute Neuts (auto) 7.0 (1.5-7.7) 10^3/ul Absolute Lymphs (auto) 0.6 L (1.0-4.8) 10^3/ul Absolute Monos (auto) 1.9 H (0-0.8) 10^3/ul Absolute Eos (auto) 0 (0-0.6) 10^3/ul Absolute Basos (auto) 0 (0-0.2) 10^3/ul Absolute Nucleated RBC 0.01 10^3/ul Nucleated RBC % 0.1 INR (Anticoag Therapy) 1.09 (0.89-1.11) Sodium (133-145) mmol/L Potassium (3.5-5.0) mmol/L Chloride (101-111) mmol/L Carbon Dioxide (22-32) mmol/L Anion Gap (2-11) mmol/L BUN (6-24) mg/dL Creatinine (0.67-1.17) mg/dL Est GFR ( Amer) (>60) Est GFR (Non-Af Amer) (>60) BUN/Creatinine Ratio (8-20) Glucose (70-100) mg/dL Lactic Acid (0.5-2.0) mmol/L Calcium (8.6-10.3) mg/dL Total Bilirubin (0.2-1.0) mg/dL AST (13-39) U/L ALT (7-52) U/L Alkaline Phosphatase (34-104) U/L Troponin I (<0.04) ng/mL Total Protein (6.4-8.9) g/dL Albumin (3.2-5.2) g/dL Globulin (2-4) g/dL Albumin/Globulin Ratio (1-3) Urine Color Yellow Urine Appearance Clear Urine pH 8.0 (5-9) Ur Specific [place] 1.015 (1.010-1.030) Urine Protein 1+(30 mg/dl) H (Negative) Urine Ketones Negative (Negative) Urine Blood 1+ H (Negative) Urine Nitrate Negative (Negative) Urine Bilirubin Negative (Negative) Urine Urobilinogen Negative (Negative) Ur Leukocyte Esterase Negative (Negative) Urine WBC (Auto) 1+(6-10/hpf) H (Absent) Urine RBC (Auto) 3+(>10/hpf) H (Absent) Urine Bacteria Absent (Absent) Urine Glucose Negative (Negative) Urine Ascorbic Acid * H (Negative) Influenza A (Rapid) (Negative) Influenza B (Rapid) (Negative) 01/25/17 01/25/17 01/25/17 Range/Units 22:20 22:20 23:37 WBC (3.5-10.8) 10^3/ul RBC (4.0-5.4) 10^6/ul Hgb (14.0-18.0) g/dl Hct (42-52) % MCV (80-94) fL MCH (27-31) pg MCHC (31-36) g/dl RDW (10.5-15) % Plt Count (150-450) 10^3/ul MPV (7.4-10.4) um3 Neut % (Auto) (38-83) % Lymph % (Auto) (25-47) % Kinney % (Auto) (1-9) % Eos % (Auto) (0-6) % Baso % (Auto) (0-2) % Absolute Neuts (auto) (1.5-7.7) 10^3/ul Absolute Lymphs (auto) (1.0-4.8) 10^3/ul Absolute Monos (auto) (0-0.8) 10^3/ul Absolute Eos (auto) (0-0.6) 10^3/ul Absolute Basos (auto) (0-0.2) 10^3/ul Absolute Nucleated RBC 10^3/ul Nucleated RBC % INR (Anticoag Therapy) (0.89-1.11) Sodium 123 L (133-145) mmol/L Potassium 5.5 H (3.5-5.0) mmol/L Chloride 89 L (101-111) mmol/L Carbon Dioxide 29 (22-32) mmol/L Anion Gap 5 (2-11) mmol/L BUN 62 H (6-24) mg/dL Creatinine 1.59 H (0.67-1.17) mg/dL Est GFR ( Amer) 54.0 (>60) Est GFR (Non-Af Amer) 42.0 (>60) BUN/Creatinine Ratio 39.0 H (8-20) Glucose 96 (70-100) mg/dL Lactic Acid 0.6 (0.5-2.0) mmol/L Calcium 9.0 (8.6-10.3) mg/dL Total Bilirubin 0.40 (0.2-1.0) mg/dL AST 42 H (13-39) U/L ALT 34 (7-52) U/L Alkaline Phosphatase 152 H (34-104) U/L Troponin I 0.06 H* (<0.04) ng/mL Total Protein 6.3 L (6.4-8.9) g/dL Albumin 3.2 (3.2-5.2) g/dL Globulin 3.1 (2-4) g/dL Albumin/Globulin Ratio 1.0 (1-3) Urine Color Urine Appearance Urine pH (5-9) Ur Specific [place] (1.010-1.030) Urine Protein (Negative) Urine Ketones (Negative) Urine Blood (Negative) Urine Nitrate (Negative) Urine Bilirubin (Negative) Urine Urobilinogen (Negative) Ur Leukocyte Esterase (Negative) Urine WBC (Auto) (Absent) Urine RBC (Auto) (Absent) Urine Bacteria (Absent) Urine Glucose (Negative) Urine Ascorbic Acid (Negative) Influenza A (Rapid) Negative (Negative) Influenza B (Rapid) Negative (Negative) Microbiology and Other Data: Microbiology 01/26/17 04:53 Nasal Screen MRSA (PCR)(BEBETO) - Final Nasal Mrsa Negative Assess/Plan/Problems-Billing Assessment: 81 yo male with a 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 possible recent flu, and PNA? . - Patient Problems (1) Confusion Code(s): R41.0 - DISORIENTATION, UNSPECIFIED Comment: Improved today, perhaps secondary to dehydration. Continue Seroquel for suspected delirium. Tramadol ordered for pain control, as pain may be contributing to delirium. Pt is afebrile, no leukocytosis. ? viral illness Patient has infrequent diarrhea, C. diff negative Influenza negative. Chest xray: no evidence for acute disease on admission XR and on f/u XR 01/28 CT Brain: meningioma. No acute infarct. CT chest/abd/pelvis ordered by oncology. Continue IVFs. Hold abx at this time. (2) Acute kidney injury Code(s): N17.9 - ACUTE KIDNEY FAILURE, UNSPECIFIED Comment: Resolved, suspect secondary to severe dehydration. (3) Hyponatremia Code(s): E87.1 - HYPO-OSMOLALITY AND HYPONATREMIA Comment: Suspect severe dehydration, improving with IVFs. (4) Elevated troponin Code(s): R74.8 - ABNORMAL LEVELS OF OTHER SERUM ENZYMES Comment: 0.06, 0.05 - suspect demand ischemia No CP, back in SR with PVCs, continue low-dose metoprolol CHADs2 Vasc score - 4 - Poor candidate for anticoagulation and family agrees. ASA was discontinued by hospice last year. (5) Esophagitis Code(s): K20.9 - ESOPHAGITIS, UNSPECIFIED Comment: Hx of erosive esophagitis (6) hx of obstructing esophageal tumor Comment: Continue Tube Feedings Oncology following CT chest/abd/pelvis shows new increased soft tissue density at rectosigmoid anastomosis suspicious for recurrent disease (7) Diabetes Code(s): E11.9 - TYPE 2 DIABETES MELLITUS WITHOUT COMPLICATIONS Comment: Controlled. FSBG Q4hrs with lispro SS and 16 units insulin glargine daily. (8) Fractured rib Code(s): S22.39XA - FRACTURE OF ONE RIB, UNSP SIDE, INIT FOR CLOS FX Comment: Fell OOB 3 weeks ago. (9) DVT prophylaxis Code(s): UEN0399 - Comment: SQ heparin (10) DNR (do not resuscitate) Status and Disposition: Inpatient with confusion and dehydration, now improving. Anticipate discharge in 2-3 days.
--- NOTE | 2017-01-28 12:20 | RAD ---
INDICATION: Risk for aspiration. COMPARISON: Comparison is made with a prior chest x-ray study from January 25, 2017. TECHNIQUE: A portable view of the chest was obtained. FINDINGS: There is a power port central venous catheter on the right side. The catheter tip projects over the region of the superior vena cava. The heart is within normal limits in size and unchanged. The lungs are slightly underinflated and clear. No pleural effusion is seen. IMPRESSION: NO EVIDENCE FOR ACUTE FINDING.
[2017-01-28] MEDS ORDERED: guaiFENesin LIQ* 100 MG/5 ML UDC PO PRN (14:38)
[2017-01-28] MEDS ORDERED: Furosemide IV* 10 MG/ML VIAL (40 MG) ONE (18:20)
[2017-01-28] MEDS ORDERED: Nitroglycerin 2% OINT* 1 GM PAK ONE (18:23)
[2017-01-28] MEDS ORDERED: Nitroglycerin 2% OINT* 1 GM PAK TOPICAL ONE (18:23)
[2017-01-28] MEDS ORDERED: Morphine INJ* 2 MG/ML 1 ML CARPUJECT ONE (18:25)
[2017-01-28] MEDS ORDERED: Morphine INJ* 2 MG/ML 1 ML CARPUJECT IV ONE (18:26)
[2017-01-28] MEDS ORDERED: Piperac/Tazob 3.375 gm in NS* 3.375 GM/100 ML BAG IVPB ONE (19:00)
[2017-01-28] MEDS: Albuterol/Ipratropium NEB.SOL* Albuterol 2.5 MG/Ipratropium 0.5 MG 3 ML INH SCH ×2 (19:05→22:32)
--- NOTE | 2017-01-28 19:09 | PN ---
Hospitalist Progress Note Called to bedside for sob. On exam patient having coarse breath sounds throughout, noted bp 180/70 resp rate 36, o2 sat 100 on oxi mask at 15lpm, pt on tube feeds due hx of esophageal ca, lungs coarse throughout, wheezing throughout, tachy 140's, ? aspiration vs flash pulm edema, plan for tx to icu for vapotherm, nitro paste lasix, nebs, pulm toliet, up ent suctioning in ICU noted thick white secretions >100cc, suspect tube feed aspiration, d/c nitro paste, morphine given for WOB, flutter valve ordered, zosyn ordered, vapotherm at 40L per minute, cxr shows no pulm edema,
--- NOTE | 2017-01-28 19:12 | RAD ---
INDICATION: Shortness of breath. COMPARISON: Comparison is made with a prior study obtained earlier today. TECHNIQUE: A portable view of the chest was obtained. FINDINGS: Again note is made of a PowerPort central venous catheter. The heart is within normal limits in size. The lungs are clear. No pleural effusion is seen. IMPRESSION: NO EVIDENCE FOR ACUTE DISEASE.
[2017-01-28 20:35] LABS: PCO2 Arterial 35 mmHg (35-45)
[2017-01-28 20:37] LABS: Hematocrit 30 % (42-52); Hemoglobin 10.1 g/dl (14.0-18.0); Mean Corpuscular HGB Conc 34 g/dl (31-36); Mean Corpuscular Hemoglobin 31 pg (27-31); Mean Corpuscular Volume 91 fL (80-94); Mean Platelet Volume 7 um3 (7.4-10.4); Red Blood Count 3.31 10^6/ul (4.0-5.4); Red Cell Distribution Width 15 % (10.5-15); White Blood Count 9.8 10^3/ul (3.5-10.8)
[2017-01-28 20:50] LABS: BUN/Creatinine Ratio 21.6 (8-20); Calcium 8.9 mg/dL (8.6-10.3); EGFR African American 106.9 (>60); EGFR Non-African American 83.1 (>60); Potassium 3.5 mmol/L (3.5-5.0)
[2017-01-28 21:20] LABS: Magnesium 1.3 mg/dL (1.9-2.7)
[2017-01-28] MEDS: KCL 20 MEQ/100 ML IVPREMIX* 20 MEQ/100 ML BAG IV SCH (21:21)
[2017-01-28] MEDS ORDERED: Magnesium Sulfate IV* 3 GM in NS 0.9% 100 ML* 100 ML IVPB ONE (21:24)
[2017-01-29] MEDS: Piperac/Tazob 3.375 gm in NS* 3.375 GM/100 ML BAG IVPB SCH ×4 (00:07→23:55)
[2017-01-29] MEDS: Metoprolol Tartrate IV* 1 MG/ML 5 ML VIAL IV PRN (02:01)
[2017-01-29] MEDS: KCL 20 MEQ/100 ML IVPREMIX* 20 MEQ/100 ML BAG IV SCH (02:01)
[2017-01-29] MEDS: Albuterol/Ipratropium NEB.SOL* Albuterol 2.5 MG/Ipratropium 0.5 MG 3 ML INH SCH ×2 (03:00→18:57)
[2017-01-29] MEDS: Heparin VIAL(*) 5000 UNITS/ML VIAL (FIVE THOUSAND) SUBCUT SCH ×3 (05:10→22:25)
[2017-01-29 05:47] LABS: BUN/Creatinine Ratio 17.3 (8-20); Calcium 8.9 mg/dL (8.6-10.3); EGFR African American 94.4 (>60); EGFR Non-African American 73.4 (>60); Magnesium 2.3 mg/dL (1.9-2.7); Potassium 3.9 mmol/L (3.5-5.0)
--- NOTE | 2017-01-29 08:16 | PN ---
Subjective Date of Service: 01/29/17 Interval History: Patient seen and examined at bedside. Patient had recently removed his Vapotherm and had O2 sats in the mid 90s. Patient assisted with putting vapotherm back on. Patient states, "No," when asked about pain, chest pain, SOB , or abd pain. He does not like the vapotherm. Nursing reports brown secretions consistent with tube feed that is being suctioned from patient. Patient currently NPO. Telemetry: SR with PVCs 90s Family History: Unchanged from Admission Social History: Unchanged from Admission Past Medical History: Unchanged from Admission Objective Active Medications: Acetaminophen (Tylenol Tab*) 650 mg .SEE ORDER Q6H PRN PRN Reason: FEVER/PAIN Last Admin: 01/28/17 04:33 Dose: 650 mg Albuterol (Ventolin 2.5 Mg/3 Ml Neb.Gabi*) 2.5 mg INH Q2H PRN PRN Reason: SOB/WHEEZING Last Admin: 01/28/17 18:42 Dose: 2.5 mg Albuterol/Ipratropium (Duoneb Neb.Gabi*) 1 neb INH Q4H TANI Last Admin: 01/29/17 03:00 Dose: 1 neb Docusate Sodium (Colace Cap*) 200 mg PO BID [facility] Last Admin: 01/28/17 19:38 Dose: Not Given Guaifenesin (Robitussin*) 5 ml PO Q4H PRN PRN Reason: COUGH Last Admin: 01/28/17 15:04 Dose: 5 ml Heparin Sodium (Porcine) (Heparin Flush Port (Ivad)) 5 ml FLUSH DAILY [facility] PRN Reason: Protocol Last Admin: 01/28/17 09:07 Dose: Not Given Heparin Sodium (Porcine) (Heparin Vial(*)) 5,000 units SUBCUT Q8HR [facility] Last Admin: 01/29/17 05:10 Dose: 5,000 units Sodium Chloride (Ns 0.9% 1000 Ml*) 1,000 mls @ 30 mls/hr IV PER RATE [facility] Piperacillin Sod/Tazobactam Sod (Zosyn 3.375 Gm In Ns Premix*) 3.375 gm in 100 mls @ 25 mls/hr IVPB Q8H [facility] Last Admin: 01/29/17 00:07 Dose: 25 mls/hr Insulin Human Lispro (Humalog*) 0 units SUBCUT Q6HR TANI PRN Reason: Protocol Melatonin (Melatonin (Nf)) 3 mg PO BEDTIME PRN; Protocol PRN Reason: Sleep Last Admin: 01/28/17 00:36 Dose: 3 mg Metoprolol Tartrate (Lopressor Iv*) 5 mg IV Q6H PRN PRN Reason: BLOOD PRESSURE Last Admin: 01/29/17 02:01 Dose: 5 mg Ondansetron HCl (Zofran Inj*) 4 mg IV Q6H PRN PRN Reason: NAUSEA Quetiapine Fumarate (Seroquel Tab*) 25 mg PEG TUBE DAILY ATNI Last Admin: 01/28/17 08:06 Dose: 25 mg Tramadol HCl (Ultram*) 50 mg PEG TUBE Q6H PRN PRN Reason: PAIN - MILD TO MODERATE Last Admin: 01/28/17 00:36 Dose: 50 mg Tramadol HCl (Ultram*) 100 mg PEG TUBE Q6H PRN PRN Reason: PAIN - MODERATE TO SEVERE Vital Signs 01/28/17 01/28/17 01/28/17 09:35 11:34 15:23 Temperature 97.5 F Pulse Rate 98 45 88 Respiratory 18 20 24 Rate Blood Pressure 132/46 (mmHg) O2 Sat by Pulse 93 88 98 Oximetry 01/28/17 01/28/17 01/28/17 15:24 18:45 19:00 Temperature 98.2 F 99.8 F 99.6 F Pulse Rate 69 143 126 Respiratory 31 29 Rate Blood Pressure 146/51 146/70 129/67 (mmHg) O2 Sat by Pulse 92 100 98 Oximetry 01/28/17 01/28/17 01/28/17 19:06 20:00 21:00 Temperature 99.6 F 100.4 F Pulse Rate 127 115 111 Respiratory 26 23 19 Rate Blood Pressure 131/60 130/65 (mmHg) O2 Sat by Pulse 100 99 100 Oximetry 01/28/17 01/28/17 01/28/17 22:00 23:00 23:53 Temperature 100.8 F 101.1 F Pulse Rate 41 38 Respiratory 22 25 25 Rate Blood Pressure 107/54 111/62 (mmHg) O2 Sat by Pulse 98 100 Oximetry 01/29/17 01/29/17 01/29/17 00:09 01:00 02:00 Temperature 101.4 F 101.2 F 100.9 F Pulse Rate 65 97 54 Respiratory 21 21 20 Rate Blood Pressure 115/44 109/58 116/55 (mmHg) O2 Sat by Pulse 100 99 100 Oximetry 01/29/17 01/29/17 01/29/17 03:00 03:18 04:00 Temperature 100.7 F 100.5 F Pulse Rate 86 97 Respiratory 22 20 20 Rate Blood Pressure 96/43 112/73 (mmHg) O2 Sat by Pulse 99 100 Oximetry 01/29/17 01/29/17 01/29/17 05:00 05:36 06:00 Temperature 100.4 F 100.3 F Pulse Rate 87 94 Respiratory 20 20 22 Rate Blood Pressure 119/64 127/66 (mmHg) O2 Sat by Pulse 100 100 Oximetry 01/29/17 01/29/17 01/29/17 07:00 07:21 07:36 Temperature 100.1 F 100.2 F 100.0 F Pulse Rate 90 Respiratory 21 22 21 Rate Blood Pressure 123/55 51/38 122/80 (mmHg) O2 Sat by Pulse 100 Oximetry Oxygen Devices in Use Now: High Flow Nasal Cannula - 40L, 100% FiO2 Appearance: Elderly male, lying in bed, eyes closed but arouses to voice, in NAD Eyes: PERRLA Neck: NL Appearance and Movements; NL JVP Respiratory: Symmetrical Chest Expansion and Respiratory Effort, - - coarse breath sounds with expiratory wheezing Cardiovascular: RRR, No Edema Abdominal: NL Sounds; No Tenderness; No Distention, - - Peg tube Extremities: No Edema, No Clubbing, Cyanosis Skin: No Rash or Ulcers Neurological: - - follows commands, DELANEY Lines/Tubes/Other Access: Clean, Dry and Intact Dalal, Clean, Dry and Intact Peripheral IV Result Diagrams: 01/28/17 20:11 01/29/17 05:17 Additional Lab and Data: Lab Results 01/25/17 01/25/17 01/25/17 Range/Units 22:20 22:20 22:20 WBC 9.4 (3.5-10.8) 10^3/ul RBC 3.22 L (4.0-5.4) 10^6/ul Hgb 9.8 L (14.0-18.0) g/dl Hct 29 L (42-52) % MCV 90 (80-94) fL MCH 30 (27-31) pg MCHC 34 (31-36) g/dl RDW 15 (10.5-15) % Plt Count 187 (150-450) 10^3/ul MPV 8 (7.4-10.4) um3 Neut % (Auto) 73.7 (38-83) % Lymph % (Auto) 6.0 L (25-47) % Morris % (Auto) 19.9 H (1-9) % Eos % (Auto) 0.2 (0-6) % Baso % (Auto) 0.2 (0-2) % Absolute Neuts (auto) 7.0 (1.5-7.7) 10^3/ul Absolute Lymphs (auto) 0.6 L (1.0-4.8) 10^3/ul Absolute Monos (auto) 1.9 H (0-0.8) 10^3/ul Absolute Eos (auto) 0 (0-0.6) 10^3/ul Absolute Basos (auto) 0 (0-0.2) 10^3/ul Absolute Nucleated RBC 0.01 10^3/ul Nucleated RBC % 0.1 INR (Anticoag Therapy) 1.09 (0.89-1.11) Sodium (133-145) mmol/L Potassium (3.5-5.0) mmol/L Chloride (101-111) mmol/L Carbon Dioxide (22-32) mmol/L Anion Gap (2-11) mmol/L BUN (6-24) mg/dL Creatinine (0.67-1.17) mg/dL Est GFR ( Amer) (>60) Est GFR (Non-Af Amer) (>60) BUN/Creatinine Ratio (8-20) Glucose (70-100) mg/dL Lactic Acid (0.5-2.0) mmol/L Calcium (8.6-10.3) mg/dL Total Bilirubin (0.2-1.0) mg/dL AST (13-39) U/L ALT (7-52) U/L Alkaline Phosphatase (34-104) U/L Troponin I (<0.04) ng/mL Total Protein (6.4-8.9) g/dL Albumin (3.2-5.2) g/dL Globulin (2-4) g/dL Albumin/Globulin Ratio (1-3) Urine Color Yellow Urine Appearance Clear Urine pH 8.0 (5-9) Ur Specific Nephi 1.015 (1.010-1.030) Urine Protein 1+(30 mg/dl) H (Negative) Urine Ketones Negative (Negative) Urine Blood 1+ H (Negative) Urine Nitrate Negative (Negative) Urine Bilirubin Negative (Negative) Urine Urobilinogen Negative (Negative) Ur Leukocyte Esterase Negative (Negative) Urine WBC (Auto) 1+(6-10/hpf) H (Absent) Urine RBC (Auto) 3+(>10/hpf) H (Absent) Urine Bacteria Absent (Absent) Urine Glucose Negative (Negative) Urine Ascorbic Acid * H (Negative) Influenza A (Rapid) (Negative) Influenza B (Rapid) (Negative) 01/25/17 01/25/17 01/25/17 Range/Units 22:20 22:20 23:37 WBC (3.5-10.8) 10^3/ul RBC (4.0-5.4) 10^6/ul Hgb (14.0-18.0) g/dl Hct (42-52) % MCV (80-94) fL MCH (27-31) pg MCHC (31-36) g/dl RDW (10.5-15) % Plt Count (150-450) 10^3/ul MPV (7.4-10.4) um3 Neut % (Auto) (38-83) % Lymph % (Auto) (25-47) % Morris % (Auto) (1-9) % Eos % (Auto) (0-6) % Baso % (Auto) (0-2) % Absolute Neuts (auto) (1.5-7.7) 10^3/ul Absolute Lymphs (auto) (1.0-4.8) 10^3/ul Absolute Monos (auto) (0-0.8) 10^3/ul Absolute Eos (auto) (0-0.6) 10^3/ul Absolute Basos (auto) (0-0.2) 10^3/ul Absolute Nucleated RBC 10^3/ul Nucleated RBC % INR (Anticoag Therapy) (0.89-1.11) Sodium 123 L (133-145) mmol/L Potassium 5.5 H (3.5-5.0) mmol/L Chloride 89 L (101-111) mmol/L Carbon Dioxide 29 (22-32) mmol/L Anion Gap 5 (2-11) mmol/L BUN 62 H (6-24) mg/dL Creatinine 1.59 H (0.67-1.17) mg/dL Est GFR ( Amer) 54.0 (>60) Est GFR (Non-Af Amer) 42.0 (>60) BUN/Creatinine Ratio 39.0 H (8-20) Glucose 96 (70-100) mg/dL Lactic Acid 0.6 (0.5-2.0) mmol/L Calcium 9.0 (8.6-10.3) mg/dL Total Bilirubin 0.40 (0.2-1.0) mg/dL AST 42 H (13-39) U/L ALT 34 (7-52) U/L Alkaline Phosphatase 152 H (34-104) U/L Troponin I 0.06 H* (<0.04) ng/mL Total Protein 6.3 L (6.4-8.9) g/dL Albumin 3.2 (3.2-5.2) g/dL Globulin 3.1 (2-4) g/dL Albumin/Globulin Ratio 1.0 (1-3) Urine Color Urine Appearance Urine pH (5-9) Ur Specific Nephi (1.010-1.030) Urine Protein (Negative) Urine Ketones (Negative) Urine Blood (Negative) Urine Nitrate (Negative) Urine Bilirubin (Negative) Urine Urobilinogen (Negative) Ur Leukocyte Esterase (Negative) Urine WBC (Auto) (Absent) Urine RBC (Auto) (Absent) Urine Bacteria (Absent) Urine Glucose (Negative) Urine Ascorbic Acid (Negative) Influenza A (Rapid) Negative (Negative) Influenza B (Rapid) Negative (Negative) Microbiology and Other Data: Microbiology 01/26/17 04:53 Nasal Screen MRSA (PCR)(BEBETO) - Final Nasal Mrsa Negative Assess/Plan/Problems-Billing Assessment: 81 yo male with a 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 possible recent flu, and PNA? . - Patient Problems (1) Aspiration of gastric contents Code(s): T17.910A - GASTRIC CONTENTS IN RESP TRACT, PART UNSP CAUSE ASPHYX, INIT Comment: With concern for aspiration yesterday. Nursing positioned patient in high Smart 's for tube feeds. Increased work of breathing and SOB last evening, likely secondary to tube feed aspiration. Patient now NPO. Low grade fever noted, with concern for aspiration pneumonitis vs pna. CXR last evening did not show pulmonary edema or infiltrates. Repeat CXR and recheck CBC. Re-consult palliative care, in the presence of aspiration and inability to safely receive tube feed. (2) Confusion Code(s): R41.0 - DISORIENTATION, UNSPECIFIED Comment: Improving, perhaps secondary to dehydration. Patient following commands and expressing needs. Continue Seroquel for suspected delirium. Tramadol ordered for pain control, as pain may be contributing to delirium. Patient reportedly more altered with other narcotics. Patient has infrequent diarrhea, C. diff negative Influenza negative. Chest xray: no evidence for acute disease on admission XR and on f/u XR 01/28 CT Brain: meningioma. No acute infarct. CT chest/abd/pelvis ordered by oncology - increased soft tissue density noted at rectosigmoid anastamosis. (3) Acute kidney injury Code(s): N17.9 - ACUTE KIDNEY FAILURE, UNSPECIFIED Comment: Resolved, suspect secondary to severe dehydration. (4) Hyponatremia Code(s): E87.1 - HYPO-OSMOLALITY AND HYPONATREMIA Comment: Suspect severe dehydration, improving with IVFs. (5) Elevated troponin Code(s): R74.8 - ABNORMAL LEVELS OF OTHER SERUM ENZYMES Comment: 0.06, 0.05 - suspect demand ischemia No CP, back in SR with PVCs, continue low-dose metoprolol CHADs2 Vasc score - 4 - Poor candidate for anticoagulation and family agrees. ASA was discontinued by hospice last year. (6) Esophagitis Code(s): K20.9 - ESOPHAGITIS, UNSPECIFIED Comment: Hx of erosive esophagitis (7) hx of obstructing esophageal tumor Comment: Continue Tube Feedings Oncology following CT chest/abd/pelvis shows new increased soft tissue density at rectosigmoid anastomosis suspicious for recurrent disease (8) Diabetes Code(s): E11.9 - TYPE 2 DIABETES MELLITUS WITHOUT COMPLICATIONS Comment: Controlled. FSBG Q4hrs with lispro SS. (9) Fractured rib Code(s): S22.39XA - FRACTURE OF ONE RIB, UNSP SIDE, INIT FOR CLOS FX Comment: Fell OOB 3 weeks ago. (10) DVT prophylaxis Code(s): [id number] - Comment: SQ heparin (11) DNR (do not resuscitate) Status and Disposition: Inpatient with confusion and dehydration, which has been improved. Now with concern for aspiration pneumonitis/pneumonia. Anticipate palliative care needs. Continue inpatient admission.
[2017-01-29] MEDS: Docusate CAP* 100 MG PO SCH ×2 (08:23→19:32)
[2017-01-29] MEDS ORDERED: Alteplase (CATHFLO)* 2 MG VIAL IV ONE (08:45)
--- NOTE | 2017-01-29 08:55 | RAD ---
Indication: Evaluate pneumonia. Single frontal view of the chest performed at 0830 hours was reviewed. Comparison is made with previous exam dated January 28, 2017. Cardiomegaly is noted. Minimal interstitial prominence is noted which is stable. Central line is in place. No alveolar consolidation is noted. Overall no changes noted since previous exam with no evidence of pneumonia. IMPRESSION: NO DEFINITE PNEUMONIA IS IDENTIFIED.
[2017-01-29 09:12] LABS: Hematocrit 32 % (42-52); Hemoglobin 10.5 g/dl (14.0-18.0); Mean Corpuscular HGB Conc 33 g/dl (31-36); Mean Corpuscular Hemoglobin 30 pg (27-31); Mean Corpuscular Volume 90 fL (80-94); Mean Platelet Volume 7 um3 (7.4-10.4); Red Cell Distribution Width 15 % (10.5-15); White Blood Count 9.4 10^3/ul (3.5-10.8)
[2017-01-29] MEDS: QUEtiapine TAB* 25 MG PEG TUBE SCH (10:52)
[2017-01-29] MEDS: Insulin LISPRO* 1 UNITS UNIT SUBCUT SCH ×4 (13:13→23:55)
[2017-01-29] MEDS ORDERED: NS 0.9% 1000 ML* 1,000 ML IV SCH (13:57)
[2017-01-29] MEDS: NS 0.9% 1000 ML* 1,000 ML IV SCH (16:09)
--- NOTE | 2017-01-29 16:48 | PN ---
Hospitalist Progress Note Patient weaned off Vapotherm. He expressed a desire to continue tube feeds. I called and spoke with daughter Nayely. She has spoken with Dr. Cavazos and would like her father to return to SNF when medically stable. We discussed hospice, but she did not feel comfortable with this plan if the patient is unable to return to the hospital to be treated for treatable conditions. She is also concerned as the patient has been on tube feeds for awhile now and has only just aspirated. She is in agreement with restarting feeds at a slow rate and keeping patient upright in order to prevent aspiration. Dietitian consult placed. Will start Jevity at 30 mL/hr and continue to titrate up as tolerated.
[2017-01-29] MEDS: traMADol TAB* 50 MG PEG TUBE PRN (19:39)
[2017-01-29] MEDS: Acetaminophen TAB* 325 MG PRN (19:39)
[2017-01-29] MEDS: QUEtiapine TAB* 25 MG PEG TUBE PRN (19:39)
[2017-01-30] MEDS: traMADol TAB* 50 MG PEG TUBE PRN ×3 (05:07→16:01)
[2017-01-30] MEDS: Heparin VIAL(*) 5000 UNITS/ML VIAL (FIVE THOUSAND) SUBCUT SCH ×3 (05:07→20:35)
[2017-01-30] MEDS: Insulin LISPRO* 1 UNITS UNIT SUBCUT SCH ×3 (06:18→17:32)
[2017-01-30] MEDS ORDERED: Morphine INJ* 2 MG/ML 1 ML CARPUJECT IV ONE (07:39)
[2017-01-30] MEDS ORDERED: oxyCODONE/Acetamin 5/325 MG* TAB PEG TUBE PRN (07:40)
--- NOTE | 2017-01-30 07:43 | PN ---
Subjective Date of Service: 01/30/17 Interval History: Patient seen and examined at bedside. Patient reported to have recurrences of breakthrough rib pain throughout the night, in spite of receiving tramadol. Patient does not endorse any other complaints other than his side hurting. Tube feed residual of 40mL; patient is having diarrhea. Telemetry: SR with PVCs 90s Family History: Unchanged from Admission Social History: Unchanged from Admission Past Medical History: Unchanged from Admission Objective Active Medications: Acetaminophen (Tylenol Tab*) 650 mg .SEE ORDER Q6H PRN PRN Reason: FEVER/PAIN Last Admin: 01/29/17 19:39 Dose: 650 mg Albuterol (Ventolin 2.5 Mg/3 Ml Neb.Gabi*) 2.5 mg INH Q2H PRN PRN Reason: SOB/WHEEZING Last Admin: 01/28/17 18:42 Dose: 2.5 mg Docusate Sodium (Colace Cap*) 200 mg PO BID [facility] Last Admin: 01/29/17 19:32 Dose: Not Given Guaifenesin (Robitussin*) 5 ml PO Q4H PRN PRN Reason: COUGH Last Admin: 01/28/17 15:04 Dose: 5 ml Heparin Sodium (Porcine) (Heparin Flush Port (Ivad)) 5 ml FLUSH DAILY [facility] PRN Reason: Protocol Last Admin: 01/29/17 10:51 Dose: Not Given Heparin Sodium (Porcine) (Heparin Vial(*)) 5,000 units SUBCUT Q8HR [facility] Last Admin: 01/30/17 05:07 Dose: 5,000 units Piperacillin Sod/Tazobactam Sod (Zosyn 3.375 Gm In Ns Premix*) 3.375 gm in 100 mls @ 25 mls/hr IVPB Q8H [facility] Last Admin: 01/29/17 23:55 Dose: 25 mls/hr Sodium Chloride (Ns 0.9% 1000 Ml*) 1,000 mls @ 30 mls/hr IV PER RATE [facility] Last Admin: 01/29/17 16:09 Dose: 30 mls/hr Insulin Human Lispro (Humalog*) 0 units SUBCUT Q6HR [facility]ANI PRN Reason: Protocol Last Admin: 01/30/17 06:18 Dose: 2 units Melatonin (Melatonin (Nf)) 3 mg PO BEDTIME PRN; Protocol PRN Reason: Sleep Last Admin: 01/28/17 00:36 Dose: 3 mg Metoprolol Tartrate (Lopressor Iv*) 5 mg IV Q6H PRN PRN Reason: BLOOD PRESSURE Last Admin: 01/29/17 02:01 Dose: 5 mg Ondansetron HCl (Zofran Inj*) 4 mg IV Q6H PRN PRN Reason: NAUSEA Quetiapine Fumarate (Seroquel Tab*) 25 mg PEG TUBE DAILY PRN PRN Reason: AGITATION Last Admin: 01/29/17 19:39 Dose: 25 mg Tramadol HCl (Ultram*) 50 mg PEG TUBE Q6H PRN PRN Reason: PAIN - MILD TO MODERATE Last Admin: 01/28/17 00:36 Dose: 50 mg Tramadol HCl (Ultram*) 100 mg PEG TUBE Q6H PRN PRN Reason: PAIN - MODERATE TO SEVERE Last Admin: 01/30/17 05:07 Dose: 100 mg Vital Signs 01/29/17 01/29/17 01/29/17 07:36 08:00 08:14 Temperature 100.0 F 98.4 F Pulse Rate 90 81 93 Respiratory 21 18 18 Rate Blood Pressure 122/80 122/59 (mmHg) O2 Sat by Pulse 100 90 96 Oximetry 01/29/17 01/29/17 01/29/17 08:15 09:00 10:00 Temperature 99.9 F 100.0 F Pulse Rate 94 42 91 Respiratory 21 18 17 Rate Blood Pressure 117/62 113/57 (mmHg) O2 Sat by Pulse 96 93 95 Oximetry 01/29/17 01/29/17 01/29/17 10:47 11:00 12:00 Temperature 100.2 F 100.2 F Pulse Rate 96 102 Respiratory 20 25 17 Rate Blood Pressure 104/41 108/47 (mmHg) O2 Sat by Pulse 83 92 Oximetry 01/29/17 01/29/17 01/29/17 13:00 13:54 14:00 Temperature 100.2 F 100.2 F Pulse Rate 95 95 Respiratory 31 19 19 Rate Blood Pressure 107/48 111/43 (mmHg) O2 Sat by Pulse 90 92 Oximetry 01/29/17 01/29/17 01/29/17 15:00 16:00 17:00 Temperature 100.0 F 100.0 F 99.9 F Pulse Rate 91 92 102 Respiratory 16 16 22 Rate Blood Pressure 111/58 123/74 119/53 (mmHg) O2 Sat by Pulse 93 95 95 Oximetry 01/29/17 01/29/17 01/29/17 18:00 19:00 19:56 Temperature 99.8 F 99.2 F Pulse Rate 94 Respiratory 20 20 20 Rate Blood Pressure 108/69 138/57 (mmHg) O2 Sat by Pulse 94 Oximetry 01/29/17 01/29/17 01/29/17 20:00 21:00 22:00 Temperature 99.8 F 99.5 F 99.1 F Pulse Rate 98 88 46 Respiratory 17 19 15 Rate Blood Pressure 103/54 105/55 108/64 (mmHg) O2 Sat by Pulse 98 99 98 Oximetry 01/29/17 01/29/17 01/30/17 23:00 23:46 00:00 Temperature 99.2 F Pulse Rate 89 Respiratory 18 16 Rate Blood Pressure 102/57 (mmHg) O2 Sat by Pulse 95 98 Oximetry 01/30/17 01/30/17 01/30/17 00:01 01:00 02:00 Temperature 99.3 F 99.6 F 99.8 F Pulse Rate 67 58 101 Respiratory 23 16 15 Rate Blood Pressure 114/43 99/55 105/36 (mmHg) O2 Sat by Pulse 95 92 94 Oximetry 01/30/17 01/30/17 01/30/17 03:00 03:53 04:00 Temperature 99.9 F 100.1 F Pulse Rate 77 54 Respiratory 18 18 22 Rate Blood Pressure 110/59 123/45 (mmHg) O2 Sat by Pulse 92 96 Oximetry 01/30/17 01/30/17 05:00 06:00 Temperature 100.2 F 100.1 F Pulse Rate 62 53 Respiratory 23 22 Rate Blood Pressure 107/39 121/61 (mmHg) O2 Sat by Pulse 95 96 Oximetry Oxygen Devices in Use Now: Nasal Cannula - 2Lnc Appearance: Elderly male, lying in bed, appears uncomfortable after rolling in bed Neck: NL Appearance and Movements; NL JVP Respiratory: Symmetrical Chest Expansion and Respiratory Effort, - - coarse breath sounds, exp wheezing in bases Cardiovascular: RRR Abdominal: NL Sounds; No Tenderness; No Distention Extremities: No Edema, No Clubbing, Cyanosis Neurological: - - alert, oriented to self, place, answers questions appropriately, follows commands Lines/Tubes/Other Access: Clean, Dry and Intact [place], Clean, Dry and Intact Peripheral IV Result Diagrams: 01/29/17 09:05 01/29/17 05:17 Additional Lab and Data: Lab Results 01/25/17 01/25/17 01/25/17 Range/Units 22:20 22:20 22:20 WBC 9.4 (3.5-10.8) 10^3/ul RBC 3.22 L (4.0-5.4) 10^6/ul Hgb 9.8 L (14.0-18.0) g/dl Hct 29 L (42-52) % MCV 90 (80-94) fL MCH 30 (27-31) pg MCHC 34 (31-36) g/dl RDW 15 (10.5-15) % Plt Count 187 (150-450) 10^3/ul MPV 8 (7.4-10.4) um3 Neut % (Auto) 73.7 (38-83) % Lymph % (Auto) 6.0 L (25-47) % [place]once % (Auto) 19.9 H (1-9) % Eos % (Auto) 0.2 (0-6) % Baso % (Auto) 0.2 (0-2) % Absolute Neuts (auto) 7.0 (1.5-7.7) 10^3/ul Absolute Lymphs (auto) 0.6 L (1.0-4.8) 10^3/ul Absolute Monos (auto) 1.9 H (0-0.8) 10^3/ul Absolute Eos (auto) 0 (0-0.6) 10^3/ul Absolute Basos (auto) 0 (0-0.2) 10^3/ul Absolute Nucleated RBC 0.01 10^3/ul Nucleated RBC % 0.1 INR (Anticoag Therapy) 1.09 (0.89-1.11) Sodium (133-145) mmol/L Potassium (3.5-5.0) mmol/L Chloride (101-111) mmol/L Carbon Dioxide (22-32) mmol/L Anion Gap (2-11) mmol/L BUN (6-24) mg/dL Creatinine (0.67-1.17) mg/dL Est GFR ( Amer) (>60) Est GFR (Non-Af Amer) (>60) BUN/Creatinine Ratio (8-20) Glucose (70-100) mg/dL Lactic Acid (0.5-2.0) mmol/L Calcium (8.6-10.3) mg/dL Total Bilirubin (0.2-1.0) mg/dL AST (13-39) U/L ALT (7-52) U/L Alkaline Phosphatase (34-104) U/L Troponin I (<0.04) ng/mL Total Protein (6.4-8.9) g/dL Albumin (3.2-5.2) g/dL Globulin (2-4) g/dL Albumin/Globulin Ratio (1-3) Urine Color Yellow Urine Appearance Clear Urine pH 8.0 (5-9) Ur Specific [place] 1.015 (1.010-1.030) Urine Protein 1+(30 mg/dl) H (Negative) Urine Ketones Negative (Negative) Urine Blood 1+ H (Negative) Urine Nitrate Negative (Negative) Urine Bilirubin Negative (Negative) Urine Urobilinogen Negative (Negative) Ur Leukocyte Esterase Negative (Negative) Urine WBC (Auto) 1+(6-10/hpf) H (Absent) Urine RBC (Auto) 3+(>10/hpf) H (Absent) Urine Bacteria Absent (Absent) Urine Glucose Negative (Negative) Urine Ascorbic Acid * H (Negative) Influenza A (Rapid) (Negative) Influenza B (Rapid) (Negative) 01/25/17 01/25/17 01/25/17 Range/Units 22:20 22:20 23:37 WBC (3.5-10.8) 10^3/ul RBC (4.0-5.4) 10^6/ul Hgb (14.0-18.0) g/dl Hct (42-52) % MCV (80-94) fL MCH (27-31) pg MCHC (31-36) g/dl RDW (10.5-15) % Plt Count (150-450) 10^3/ul MPV (7.4-10.4) um3 Neut % (Auto) (38-83) % Lymph % (Auto) (25-47) % [place] % (Auto) (1-9) % Eos % (Auto) (0-6) % Baso % (Auto) (0-2) % Absolute Neuts (auto) (1.5-7.7) 10^3/ul Absolute Lymphs (auto) (1.0-4.8) 10^3/ul Absolute Monos (auto) (0-0.8) 10^3/ul Absolute Eos (auto) (0-0.6) 10^3/ul Absolute Basos (auto) (0-0.2) 10^3/ul Absolute Nucleated RBC 10^3/ul Nucleated RBC % INR (Anticoag Therapy) (0.89-1.11) Sodium 123 L (133-145) mmol/L Potassium 5.5 H (3.5-5.0) mmol/L Chloride 89 L (101-111) mmol/L Carbon Dioxide 29 (22-32) mmol/L Anion Gap 5 (2-11) mmol/L BUN 62 H (6-24) mg/dL Creatinine 1.59 H (0.67-1.17) mg/dL Est GFR ( Amer) 54.0 (>60) Est GFR (Non-Af Amer) 42.0 (>60) BUN/Creatinine Ratio 39.0 H (8-20) Glucose 96 (70-100) mg/dL Lactic Acid 0.6 (0.5-2.0) mmol/L Calcium 9.0 (8.6-10.3) mg/dL Total Bilirubin 0.40 (0.2-1.0) mg/dL AST 42 H (13-39) U/L ALT 34 (7-52) U/L Alkaline Phosphatase 152 H (34-104) U/L Troponin I 0.06 H* (<0.04) ng/mL Total Protein 6.3 L (6.4-8.9) g/dL Albumin 3.2 (3.2-5.2) g/dL Globulin 3.1 (2-4) g/dL Albumin/Globulin Ratio 1.0 (1-3) Urine Color Urine Appearance Urine pH (5-9) Ur Specific [place] (1.010-1.030) Urine Protein (Negative) Urine Ketones (Negative) Urine Blood (Negative) Urine Nitrate (Negative) Urine Bilirubin (Negative) Urine Urobilinogen (Negative) Ur Leukocyte Esterase (Negative) Urine WBC (Auto) (Absent) Urine RBC (Auto) (Absent) Urine Bacteria (Absent) Urine Glucose (Negative) Urine Ascorbic Acid (Negative) Influenza A (Rapid) Negative (Negative) Influenza B (Rapid) Negative (Negative) Microbiology and Other Data: Microbiology 01/26/17 04:53 Nasal Screen MRSA (PCR)(BEBETO) - Final Nasal Mrsa Negative Assess/Plan/Problems-Billing Assessment: 81 yo male with a 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 possible recent flu, and PNA? . - Patient Problems (1) Aspiration of gastric contents Code(s): T17.910A - GASTRIC CONTENTS IN RESP TRACT, PART UNSP CAUSE ASPHYX, INIT Comment: Suspect aspiration pneumonitis secondary to aspiration event 01/28. Continue Zosyn. Patient and family expressed desire to continue tube feeds as patient is unable to safely take PO due to obstructing esophageal mass. Continue tube feeds at continuous rate and titrate slowly. Aspiration precautions. Appreciate nutrition consult for guidance. Patient continues to have diarrhea with tube feeds, switch to glucerna. Repeat CXR 01/29 showed no definitive infiltrates or pneumonia. (2) Confusion Code(s): R41.0 - DISORIENTATION, UNSPECIFIED Comment: Suspect metabolic encephalopathy, most likely secondary to dehydration, AALIYAH, and mild hyponatremia. Resolved. Patient following commands and expressing needs. Daughter feels he is at his baseline. Continue Seroquel prn for agitation. Tramadol ordered for pain control. Will add Toradol and monitor kidney function. Patient reportedly more altered with other narcotics. Patient has infrequent diarrhea, C. diff negative Influenza negative. Chest xray: no evidence for acute disease on admission XR and on f/u XR 01/28 CT Brain: meningioma. No acute infarct. CT chest/abd/pelvis ordered by oncology - increased soft tissue density noted at rectosigmoid anastamosis. (3) Acute kidney injury Code(s): N17.9 - ACUTE KIDNEY FAILURE, UNSPECIFIED Comment: Resolved, suspect secondary to severe dehydration. (4) Hyponatremia Code(s): E87.1 - HYPO-OSMOLALITY AND HYPONATREMIA Comment: Suspect severe dehydration, improving with IVFs. (5) Elevated troponin Code(s): R74.8 - ABNORMAL LEVELS OF OTHER SERUM ENZYMES Comment: 0.06, 0.05 - suspect demand ischemia No CP, back in SR with PVCs, continue low-dose metoprolol CHADs2 Vasc score - 4 - Poor candidate for anticoagulation and family agrees. ASA was discontinued by hospice last year. (6) Esophagitis Code(s): K20.9 - ESOPHAGITIS, UNSPECIFIED Comment: Hx of erosive esophagitis (7) hx of obstructing esophageal tumor Comment: Continue Tube Feedings as continuous feed instead of bolus feeds. Oncology following CT chest/abd/pelvis shows new increased soft tissue density at rectosigmoid anastomosis suspicious for recurrent disease (8) Diabetes Code(s): E11.9 - TYPE 2 DIABETES MELLITUS WITHOUT COMPLICATIONS Comment: Controlled. FSBG Q4hrs with lispro SS. (9) Fractured rib Code(s): S22.39XA - FRACTURE OF ONE RIB, UNSP SIDE, INIT FOR CLOS FX Comment: Fell OOB 3 weeks ago. (10) DVT prophylaxis Code(s): DLI6891 - Comment: SQ heparin (11) DNR (do not resuscitate) Status and Disposition: Inpatient with confusion and dehydration, which has been improved. Now with concern for aspiration pneumonitis/pneumonia. Anticipate palliative care needs. Continue inpatient admission.
[2017-01-30] MEDS: Piperac/Tazob 3.375 gm in NS* 3.375 GM/100 ML BAG IVPB SCH ×2 (07:58→16:01)
[2017-01-30 08:21] LABS: Hematocrit 29 % (42-52); Hemoglobin 9.6 g/dl (14.0-18.0); Mean Corpuscular HGB Conc 33 g/dl (31-36); Mean Corpuscular Hemoglobin 30 pg (27-31); Mean Corpuscular Volume 90 fL (80-94); Mean Platelet Volume 7 um3 (7.4-10.4); Red Blood Count 3.24 10^6/ul (4.0-5.4); Red Cell Distribution Width 16 % (10.5-15); White Blood Count 11.1 10^3/ul (3.5-10.8)
[2017-01-30 08:40] LABS: BUN/Creatinine Ratio 15.8 (8-20); EGFR African American 91.2 (>60); EGFR Non-African American 70.9 (>60); Potassium 3.4 mmol/L (3.5-5.0)
[2017-01-30] MEDS ORDERED: Potassium Chloride LIQUID* 20 MEQ PACKET PEG TUBE ONE (09:28)
[2017-01-30] MEDS: Metoprolol Tartrate IV* 1 MG/ML 5 ML VIAL IV PRN (10:15)
[2017-01-30] MEDS: Ketorolac INJ* 15 MG/ML 1 ML VIAL IV PUSH PRN ×2 (10:59→18:04)
[2017-01-30 12:01] LABS: C Reactive Protein 128.86 mg/L (< 5.00)
[2017-01-30 12:38] LABS: Magnesium 1.8 mg/dL (1.9-2.7)
[2017-01-30] MEDS: Docusate CAP* 100 MG PO SCH ×2 (12:54→20:35)
[2017-01-30] MEDS ORDERED: Magnesium Sulfate 2 GM IV* 2 GM/50 ML BAG IVPB ONE (13:00)
--- NOTE | 2017-01-30 13:27 | RAD ---
INDICATION: Fever. Altered mental status COMPARISON: January 29, 2017 TECHNIQUE: An AP portable view obtained at 1240 hours is submitted. The examination is apical lordotic in positioning FINDINGS: Bones/Soft Tissues: There are no acute bony findings. There is a right-sided [id number] catheter Cardiomediastinal: The cardiomediastinal silhouette is normal. Lungs: There are no infiltrates. There are chronic interstitial changes Pleura: There are no pleural effusions. Other: None IMPRESSION: CHRONIC INTERSTITIAL CHANGES. NO FOCAL INFILTRATES
[2017-01-30] MEDS ORDERED: Potassium Chloride LIQUID* 20 MEQ PACKET PO ONE (15:59)
[2017-01-30] MEDS: NS 0.9% 1000 ML* 1,000 ML IV SCH (16:01)
[2017-01-30 16:26] LABS: Urine Bacteria Absent (Absent); Urine Bilirubin Negative (Negative); Urine Glucose Negative (Negative); Urine Nitrite Negative (Negative)
[2017-01-30] MEDS: QUEtiapine TAB* 25 MG PEG TUBE PRN (23:36)
[2017-01-31] MEDS: Insulin LISPRO* 1 UNITS UNIT SUBCUT SCH ×4 (00:42→18:00)
[2017-01-31] MEDS: Piperac/Tazob 3.375 gm in NS* 3.375 GM/100 ML BAG IVPB SCH ×3 (00:51→16:08)
[2017-01-31] MEDS: Ketorolac INJ* 15 MG/ML 1 ML VIAL IV PUSH PRN ×4 (04:30→22:51)
[2017-01-31 05:06] LABS: Hematocrit 29 % (42-52); Hemoglobin 9.3 g/dl (14.0-18.0); Mean Corpuscular HGB Conc 33 g/dl (31-36); Mean Corpuscular Hemoglobin 30 pg (27-31); Mean Corpuscular Volume 91 fL (80-94); Mean Platelet Volume 7 um3 (7.4-10.4); Red Blood Count 3.13 10^6/ul (4.0-5.4); Red Cell Distribution Width 15 % (10.5-15)
[2017-01-31] MEDS: Heparin VIAL(*) 5000 UNITS/ML VIAL (FIVE THOUSAND) SUBCUT SCH ×3 (05:24→20:23)
[2017-01-31 05:31] LABS: BUN/Creatinine Ratio 17.5 (8-20); Calcium 9.2 mg/dL (8.6-10.3); EGFR African American 79.3 (>60); EGFR Non-African American 61.7 (>60); Potassium 4.3 mmol/L (3.5-5.0)
[2017-01-31] MEDS: Docusate CAP* 100 MG PO SCH ×2 (07:08→20:24)
--- NOTE | 2017-01-31 07:29 | PN ---
Subjective Date of Service: 01/31/17 Interval History: Patient seen and examined at bedside. He is resting at time of assessment and says "no" when asked about chest pain, SOB, abd pain, n/v. I asked if he was still having significant rib pain and he states, "It's there." When asked to elaborate, he says, "It's a little better." Telemetry: SR with PVCs 80s Family History: Unchanged from Admission Social History: Unchanged from Admission Past Medical History: Unchanged from Admission Objective Active Medications: Acetaminophen (Tylenol Tab*) 650 mg .SEE ORDER Q6H PRN PRN Reason: FEVER/PAIN Last Admin: 01/29/17 19:39 Dose: 650 mg Albuterol (Ventolin 2.5 Mg/3 Ml Neb.Gabi*) 2.5 mg INH Q2H PRN PRN Reason: SOB/WHEEZING Last Admin: 01/28/17 18:42 Dose: 2.5 mg Docusate Sodium (Colace Cap*) 200 mg PO BID [facility] Last Admin: 01/31/17 07:08 Dose: Not Given Guaifenesin (Robitussin*) 5 ml PO Q4H PRN PRN Reason: COUGH Last Admin: 01/28/17 15:04 Dose: 5 ml Heparin Sodium (Porcine) (Heparin Flush Port (Ivad)) 5 ml FLUSH DAILY [facility] PRN Reason: Protocol Last Admin: 01/31/17 07:08 Dose: Not Given Heparin Sodium (Porcine) (Heparin Vial(*)) 5,000 units SUBCUT Q8HR [facility] Last Admin: 01/31/17 05:24 Dose: 5,000 units Piperacillin Sod/Tazobactam Sod (Zosyn 3.375 Gm In Ns Premix*) 3.375 gm in 100 mls @ 25 mls/hr IVPB Q8H [facility] Last Admin: 01/31/17 00:51 Dose: 25 mls/hr Sodium Chloride (Ns 0.9% 1000 Ml*) 1,000 mls @ 50 mls/hr IV PER RATE [facility] Insulin Human Lispro (Humalog*) 0 units SUBCUT Q6HR [facility] PRN Reason: Protocol Last Admin: 01/31/17 05:24 Dose: 2 units Ketorolac Tromethamine (Toradol Inj*) 15 mg IV PUSH Q6H PRN PRN Reason: PAIN Last Admin: 01/31/17 04:30 Dose: 15 mg Loperamide HCl (Imodium Liq*) 2 mg PO .SEE ORDER PRN PRN Reason: DIARRHEA Melatonin (Melatonin (Nf)) 3 mg PO BEDTIME PRN; Protocol PRN Reason: Sleep Last Admin: 01/28/17 00:36 Dose: 3 mg Metoprolol Tartrate (Lopressor Iv*) 5 mg IV Q6H PRN PRN Reason: BLOOD PRESSURE Last Admin: 01/30/17 10:15 Dose: 5 mg Ondansetron HCl (Zofran Inj*) 4 mg IV Q6H PRN PRN Reason: NAUSEA Quetiapine Fumarate (Seroquel Tab*) 25 mg PEG TUBE DAILY PRN PRN Reason: AGITATION Last Admin: 01/30/17 23:36 Dose: 25 mg Tramadol HCl (Ultram*) 50 mg PEG TUBE Q6H PRN PRN Reason: PAIN - MILD TO MODERATE Last Admin: 01/30/17 10:14 Dose: 50 mg Tramadol HCl (Ultram*) 100 mg PEG TUBE Q6H PRN PRN Reason: PAIN - MODERATE TO SEVERE Last Admin: 01/30/17 16:01 Dose: 100 mg Vital Signs 01/30/17 01/30/17 01/30/17 07:58 08:00 08:45 Temperature 99.8 F Pulse Rate 93 105 Respiratory 20 20 23 Rate Blood Pressure 107/51 (mmHg) O2 Sat by Pulse 100 93 Oximetry 01/30/17 01/30/17 01/30/17 08:46 09:00 10:00 Temperature 99.6 F 99.9 F Pulse Rate 76 51 Respiratory 15 13 Rate Blood Pressure 115/41 (mmHg) O2 Sat by Pulse 93 94 93 Oximetry 01/30/17 01/30/17 01/30/17 10:17 11:00 12:00 Temperature 99.8 F 99.9 F 100.0 F Pulse Rate 52 39 90 Respiratory 16 19 17 Rate Blood Pressure 126/85 121/77 110/61 (mmHg) O2 Sat by Pulse 93 98 99 Oximetry 01/30/17 01/30/17 01/30/17 13:00 13:41 14:00 Temperature 99.8 F 99.7 F 99.6 F Pulse Rate 90 91 Respiratory 21 15 16 Rate Blood Pressure 99/54 109/60 (mmHg) O2 Sat by Pulse 85 95 Oximetry 01/30/17 01/30/17 01/30/17 14:45 15:00 16:00 Temperature 99.4 F 99.3 F 99.3 F Pulse Rate 93 93 96 Respiratory 19 20 18 Rate Blood Pressure 120/69 131/65 (mmHg) O2 Sat by Pulse 95 96 93 Oximetry 01/30/17 01/30/17 01/30/17 17:00 18:00 18:22 Temperature 99.5 F 99.6 F 99.8 F Pulse Rate 102 100 100 Respiratory 18 20 17 Rate Blood Pressure 122/59 (mmHg) O2 Sat by Pulse 93 96 94 Oximetry 01/30/17 01/30/17 01/30/17 19:00 19:55 20:00 Temperature 99.8 F 99.7 F Pulse Rate 95 101 94 Respiratory 19 18 15 Rate Blood Pressure 109/56 109/44 (mmHg) O2 Sat by Pulse 92 97 98 Oximetry 01/30/17 01/30/17 01/31/17 21:00 22:00 00:06 Temperature 99.5 F 99.7 F 97.7 F Pulse Rate 92 98 94 Respiratory 15 16 18 Rate Blood Pressure 118/52 122/66 126/54 (mmHg) O2 Sat by Pulse 97 99 100 Oximetry Oxygen Devices in Use Now: Nasal Cannula - 2Lnc Appearance: Elderly male patient, sitting up in bed, in NAD Eyes: PERRLA Ears/Nose/Mouth/Throat: Clear Oropharnyx Neck: NL Appearance and Movements; NL JVP Respiratory: Symmetrical Chest Expansion and Respiratory Effort, - - coarse breath sounds, expiratory wheezing Cardiovascular: RRR Abdominal: - - Peg tube Extremities: No Edema, No Clubbing, Cyanosis Neurological: - - alert, oriented to self and place, disoriented to time. Follows commands Lines/Tubes/Other Access: Clean, Dry and Intact [place], Clean, Dry and Intact Peripheral IV Result Diagrams: 01/31/17 05:00 01/31/17 05:00 Additional Lab and Data: Lab Results 01/25/17 01/25/17 01/25/17 Range/Units 22:20 22:20 22:20 WBC 9.4 (3.5-10.8) 10^3/ul RBC 3.22 L (4.0-5.4) 10^6/ul Hgb 9.8 L (14.0-18.0) g/dl Hct 29 L (42-52) % MCV 90 (80-94) fL MCH 30 (27-31) pg MCHC 34 (31-36) g/dl RDW 15 (10.5-15) % Plt Count 187 (150-450) 10^3/ul MPV 8 (7.4-10.4) um3 Neut % (Auto) 73.7 (38-83) % Lymph % (Auto) 6.0 L (25-47) % [place] % (Auto) 19.9 H (1-9) % Eos % (Auto) 0.2 (0-6) % Baso % (Auto) 0.2 (0-2) % Absolute Neuts (auto) 7.0 (1.5-7.7) 10^3/ul Absolute Lymphs (auto) 0.6 L (1.0-4.8) 10^3/ul Absolute Monos (auto) 1.9 H (0-0.8) 10^3/ul Absolute Eos (auto) 0 (0-0.6) 10^3/ul Absolute Basos (auto) 0 (0-0.2) 10^3/ul Absolute Nucleated RBC 0.01 10^3/ul Nucleated RBC % 0.1 INR (Anticoag Therapy) 1.09 (0.89-1.11) Sodium (133-145) mmol/L Potassium (3.5-5.0) mmol/L Chloride (101-111) mmol/L Carbon Dioxide (22-32) mmol/L Anion Gap (2-11) mmol/L BUN (6-24) mg/dL Creatinine (0.67-1.17) mg/dL Est GFR ( Amer) (>60) Est GFR (Non-Af Amer) (>60) BUN/Creatinine Ratio (8-20) Glucose (70-100) mg/dL Lactic Acid (0.5-2.0) mmol/L Calcium (8.6-10.3) mg/dL Total Bilirubin (0.2-1.0) mg/dL AST (13-39) U/L ALT (7-52) U/L Alkaline Phosphatase (34-104) U/L Troponin I (<0.04) ng/mL Total Protein (6.4-8.9) g/dL Albumin (3.2-5.2) g/dL Globulin (2-4) g/dL Albumin/Globulin Ratio (1-3) Urine Color Yellow Urine Appearance Clear Urine pH 8.0 (5-9) Ur Specific [place] 1.015 (1.010-1.030) Urine Protein 1+(30 mg/dl) H (Negative) Urine Ketones Negative (Negative) Urine Blood 1+ H (Negative) Urine Nitrate Negative (Negative) Urine Bilirubin Negative (Negative) Urine Urobilinogen Negative (Negative) Ur Leukocyte Esterase Negative (Negative) Urine WBC (Auto) 1+(6-10/hpf) H (Absent) Urine RBC (Auto) 3+(>10/hpf) H (Absent) Urine Bacteria Absent (Absent) Urine Glucose Negative (Negative) Urine Ascorbic Acid * H (Negative) Influenza A (Rapid) (Negative) Influenza B (Rapid) (Negative) 01/25/17 01/25/17 01/25/17 Range/Units 22:20 22:20 23:37 WBC (3.5-10.8) 10^3/ul RBC (4.0-5.4) 10^6/ul Hgb (14.0-18.0) g/dl Hct (42-52) % MCV (80-94) fL MCH (27-31) pg MCHC (31-36) g/dl RDW (10.5-15) % Plt Count (150-450) 10^3/ul MPV (7.4-10.4) um3 Neut % (Auto) (38-83) % Lymph % (Auto) (25-47) % [place] % (Auto) (1-9) % Eos % (Auto) (0-6) % Baso % (Auto) (0-2) % Absolute Neuts (auto) (1.5-7.7) 10^3/ul Absolute Lymphs (auto) (1.0-4.8) 10^3/ul Absolute Monos (auto) (0-0.8) 10^3/ul Absolute Eos (auto) (0-0.6) 10^3/ul Absolute Basos (auto) (0-0.2) 10^3/ul Absolute Nucleated RBC 10^3/ul Nucleated RBC % INR (Anticoag Therapy) (0.89-1.11) Sodium 123 L (133-145) mmol/L Potassium 5.5 H (3.5-5.0) mmol/L Chloride 89 L (101-111) mmol/L Carbon Dioxide 29 (22-32) mmol/L Anion Gap 5 (2-11) mmol/L BUN 62 H (6-24) mg/dL Creatinine 1.59 H (0.67-1.17) mg/dL Est GFR ( Amer) 54.0 (>60) Est GFR (Non-Af Amer) 42.0 (>60) BUN/Creatinine Ratio 39.0 H (8-20) Glucose 96 (70-100) mg/dL Lactic Acid 0.6 (0.5-2.0) mmol/L Calcium 9.0 (8.6-10.3) mg/dL Total Bilirubin 0.40 (0.2-1.0) mg/dL AST 42 H (13-39) U/L ALT 34 (7-52) U/L Alkaline Phosphatase 152 H (34-104) U/L Troponin I 0.06 H* (<0.04) ng/mL Total Protein 6.3 L (6.4-8.9) g/dL Albumin 3.2 (3.2-5.2) g/dL Globulin 3.1 (2-4) g/dL Albumin/Globulin Ratio 1.0 (1-3) Urine Color Urine Appearance Urine pH (5-9) Ur Specific [place] (1.010-1.030) Urine Protein (Negative) Urine Ketones (Negative) Urine Blood (Negative) Urine Nitrate (Negative) Urine Bilirubin (Negative) Urine Urobilinogen (Negative) Ur Leukocyte Esterase (Negative) Urine WBC (Auto) (Absent) Urine RBC (Auto) (Absent) Urine Bacteria (Absent) Urine Glucose (Negative) Urine Ascorbic Acid (Negative) Influenza A (Rapid) Negative (Negative) Influenza B (Rapid) Negative (Negative) Microbiology and Other Data: Microbiology 01/26/17 04:53 Nasal Screen MRSA (PCR)(BEBETO) - Final Nasal Mrsa Negative Assess/Plan/Problems-Billing Assessment: 81 yo male with a 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 possible recent flu, and PNA? . - Patient Problems (1) Aspiration of gastric contents Code(s): T17.910A - GASTRIC CONTENTS IN RESP TRACT, PART UNSP CAUSE ASPHYX, INIT Comment: Suspect aspiration pneumonitis secondary to aspiration event 01/28. Transition Zosyn to Augmentin. Patient and family expressed desire to continue tube feeds as patient is unable to safely take PO due to obstructing esophageal mass. Continue Glucerna tube feeds at continuous rate and titrate slowly. Aspiration precautions. Appreciate nutrition consult for guidance. Diarrhea slowed. PRN immodium available. Repeat CXR 01/29 showed no definitive infiltrates or pneumonia. (2) Confusion Code(s): R41.0 - DISORIENTATION, UNSPECIFIED Comment: Suspect metabolic encephalopathy, most likely secondary to dehydration, AALIYAH, and mild hyponatremia. Resolved. Patient following commands and expressing needs. Daughter feels he is at his baseline. Continue Seroquel prn for agitation. Tramadol ordered for pain control. Will add Toradol and monitor kidney function. Patient reportedly more altered with other narcotics. Patient has infrequent diarrhea, C. diff negative Influenza negative. Chest xray: no evidence for acute disease on admission XR and on f/u XR 01/28 CT Brain: meningioma. No acute infarct. CT chest/abd/pelvis ordered by oncology - increased soft tissue density noted at rectosigmoid anastamosis. (3) Acute kidney injury Code(s): N17.9 - ACUTE KIDNEY FAILURE, UNSPECIFIED Comment: Resolved, suspect secondary to severe dehydration. (4) Hyponatremia Code(s): E87.1 - HYPO-OSMOLALITY AND HYPONATREMIA Comment: Suspect severe dehydration, improving with IVFs. (5) Elevated troponin Code(s): R74.8 - ABNORMAL LEVELS OF OTHER SERUM ENZYMES Comment: 0.06, 0.05 - suspect demand ischemia No CP, back in SR with PVCs, continue low-dose metoprolol CHADs2 Vasc score - 4 - Poor candidate for anticoagulation and family agrees. ASA was discontinued by hospice last year. (6) Esophagitis Code(s): K20.9 - ESOPHAGITIS, UNSPECIFIED Comment: Hx of erosive esophagitis (7) hx of obstructing esophageal tumor Comment: Continue Tube Feedings as continuous feed instead of bolus feeds. Oncology following CT chest/abd/pelvis shows new increased soft tissue density at rectosigmoid anastomosis suspicious for recurrent disease (8) Diabetes Code(s): E11.9 - TYPE 2 DIABETES MELLITUS WITHOUT COMPLICATIONS Comment: Controlled. FSBG Q4hrs with lispro SS. (9) Fractured rib Code(s): S22.39XA - FRACTURE OF ONE RIB, UNSP SIDE, INIT FOR CLOS FX Comment: Fell OOB 3 weeks ago. (10) DVT prophylaxis Code(s): GXW3856 - Comment: SQ heparin (11) DNR (do not resuscitate) Status and Disposition: Inpatient with confusion and dehydration, which has been improved. Now with concern for aspiration pneumonitis/pneumonia. Anticipate palliative care needs. Continue inpatient admission. Titrate tube feed up to max goal of 60 mL/hr. Discharge planning.
[2017-01-31] MEDS: NS 0.9% 1000 ML* 1,000 ML IV SCH (09:08)
[2017-01-31] MEDS: traMADol TAB* 50 MG PEG TUBE PRN ×2 (09:10→15:13)
[2017-01-31] MEDS ORDERED: NS 0.9% 250 ML* 250 ML IV ONE (14:12)
--- NOTE | 2017-01-31 16:17 | PN ---
Hospitalist Progress Note Patient tolerating tube feeds. Orders for residual in chart per hospital policy. Continue to titrate up for a max goal of 60 mL/hr per nutrition notes. Patient with low urine output. Give 250 mL bolus and continue to monitor. Will keep espinoza catheter this evening for further monitoring of I/O. Switch Zosyn to Augmentin. D/c espinoza in AM in preparation for d/c planning.
[2017-01-31] MEDS ORDERED: Furosemide IV* 10 MG/ML 2 ML VIAL (20 MG) IV SLOW PU ONE (17:45)
[2017-01-31] MEDS: Loperamide LIQ* 2 MG/10 ML UDC PO PRN ×2 (20:23→20:24)
[2017-01-31] MEDS: QUEtiapine TAB* 25 MG PEG TUBE PRN (20:24)
[2017-01-31] MEDS: Amoxicillin/Clavulanate O.SYR* 400 MG/5 ML ORAL.SYRIN PEG TUBE SCH (20:32)
[2017-02-01] MEDS: Insulin LISPRO* 1 UNITS UNIT SUBCUT SCH ×4 (01:46→18:39)
[2017-02-01] MEDS: traMADol TAB* 50 MG PEG TUBE PRN ×3 (03:53→18:38)
[2017-02-01] MEDS: Heparin VIAL(*) 5000 UNITS/ML VIAL (FIVE THOUSAND) SUBCUT SCH ×3 (05:36→21:10)
[2017-02-01] MEDS: Ketorolac INJ* 15 MG/ML 1 ML VIAL IV PUSH PRN ×4 (06:12→23:56)
[2017-02-01] MEDS: Docusate CAP* 100 MG PO SCH ×2 (07:13→19:18)
[2017-02-01] MEDS: NS 0.9% 1000 ML* 1,000 ML IV SCH (09:04)
[2017-02-01] MEDS: QUEtiapine TAB* 25 MG PEG TUBE PRN (09:06)
[2017-02-01] MEDS: Amoxicillin/Clavulanate O.SYR* 400 MG/5 ML ORAL.SYRIN PEG TUBE SCH ×2 (09:08→21:10)
--- NOTE | 2017-02-01 13:43 | PN ---
Subjective Date of Service: 02/01/17 Interval History: Patient laying in bed Alert, pleasantly confused, NAD. States he is a [place]. Offers no complaints. Family History: Unchanged from Admission Social History: Unchanged from Admission Past Medical History: Unchanged from Admission Objective Active Medications: Acetaminophen (Tylenol Tab*) 650 mg .SEE ORDER Q6H PRN PRN Reason: FEVER/PAIN Last Admin: 01/29/17 19:39 Dose: 650 mg Albuterol (Ventolin 2.5 Mg/3 Ml Neb.Gabi*) 2.5 mg INH Q2H PRN PRN Reason: SOB/WHEEZING Last Admin: 01/28/17 18:42 Dose: 2.5 mg Amoxicillin/Clavulanate Potassium (Augmentin Oral Syringe*) 875 mg PEG TUBE BID [facility] Last Admin: 02/01/17 09:08 Dose: 875 mg Docusate Sodium (Colace Cap*) 200 mg PO BID [facility] Last Admin: 02/01/17 07:13 Dose: Not Given Guaifenesin (Robitussin*) 5 ml PO Q4H PRN PRN Reason: COUGH Last Admin: 01/28/17 15:04 Dose: 5 ml Heparin Sodium (Porcine) (Heparin Flush Port (Ivad)) 5 ml FLUSH DAILY [facility] PRN Reason: Protocol Last Admin: 02/01/17 09:06 Dose: Not Given Heparin Sodium (Porcine) (Heparin Vial(*)) 5,000 units SUBCUT Q8HR [facility] Last Admin: 02/01/17 13:14 Dose: 5,000 units Sodium Chloride (Ns 0.9% 1000 Ml*) 1,000 mls @ 50 mls/hr IV PER RATE [facility] Last Admin: 02/01/17 09:04 Dose: 50 mls/hr Insulin Human Lispro (Humalog*) 0 units SUBCUT Q6HR [facility] PRN Reason: Protocol Last Admin: 02/01/17 12:21 Dose: 2 units Ketorolac Tromethamine (Toradol Inj*) 15 mg IV PUSH Q6H PRN PRN Reason: PAIN Last Admin: 02/01/17 12:20 Dose: 15 mg Loperamide HCl (Imodium Liq*) 2 mg PO .SEE ORDER PRN PRN Reason: DIARRHEA Last Admin: 01/31/17 20:23 Dose: 2 mg Melatonin (Melatonin (Nf)) 3 mg PO BEDTIME PRN; Protocol PRN Reason: Sleep Last Admin: 01/28/17 00:36 Dose: 3 mg Metoprolol Tartrate (Lopressor Iv*) 5 mg IV Q6H PRN PRN Reason: BLOOD PRESSURE Last Admin: 01/30/17 10:15 Dose: 5 mg Ondansetron HCl (Zofran Inj*) 4 mg IV Q6H PRN PRN Reason: NAUSEA Quetiapine Fumarate (Seroquel Tab*) 25 mg PEG TUBE DAILY PRN PRN Reason: AGITATION Last Admin: 02/01/17 09:06 Dose: 25 mg Tramadol HCl (Ultram*) 50 mg PEG TUBE Q6H PRN PRN Reason: PAIN - MILD TO MODERATE Last Admin: 02/01/17 12:26 Dose: 50 mg Tramadol HCl (Ultram*) 100 mg PEG TUBE Q6H PRN PRN Reason: PAIN - MODERATE TO SEVERE Last Admin: 02/01/17 03:53 Dose: 100 mg Vital Signs 01/31/17 01/31/17 01/31/17 15:13 15:37 17:13 Temperature 98.3 F Pulse Rate 96 Respiratory 16 16 16 Rate Blood Pressure 135/79 (mmHg) O2 Sat by Pulse 100 Oximetry 01/31/17 01/31/17 01/31/17 19:13 19:42 19:49 Temperature 97.3 F Pulse Rate 91 Respiratory 21 21 20 Rate Blood Pressure 117/58 (mmHg) O2 Sat by Pulse 97 Oximetry 01/31/17 01/31/17 01/31/17 19:57 20:23 22:23 Temperature Pulse Rate Respiratory 20 21 Rate Blood Pressure (mmHg) O2 Sat by Pulse 97 Oximetry 02/01/17 02/01/17 02/01/17 00:10 03:33 03:53 Temperature 98.5 F 97.4 F Pulse Rate 103 98 Respiratory 20 20 20 Rate Blood Pressure 128/69 111/69 (mmHg) O2 Sat by Pulse 100 99 Oximetry 02/01/17 02/01/17 02/01/17 07:00 07:18 08:00 Temperature 98.4 F Pulse Rate 94 94 Respiratory 20 16 20 Rate Blood Pressure 118/59 118/58 (mmHg) O2 Sat by Pulse 100 100 Oximetry 02/01/17 02/01/17 02/01/17 08:05 11:51 12:26 Temperature Pulse Rate 94 115 Respiratory 16 16 20 Rate Blood Pressure 143/78 (mmHg) O2 Sat by Pulse 99 100 Oximetry Oxygen Devices in Use Now: Nasal Cannula - 2Lnc Appearance: elderly male laying in bed [place], confused in NAD, follows commands Eyes: No Scleral Icterus, PERRLA Ears/Nose/Mouth/Throat: NL Teeth, Lips, Gums, Mucous Membranes Moist Neck: NL Appearance and Movements; NL JVP Respiratory: Symmetrical Chest Expansion and Respiratory Effort, Clear to Auscultation Cardiovascular: NL Sounds; No Murmurs; No JVD, RRR, No Edema Abdominal: NL Sounds; No Tenderness; No Distention Extremities: No Edema, No Clubbing, Cyanosis Skin: No Rash or Ulcers, No Nodules or Sclerosis Neurological: Alert and Oriented x 3, NL Sensation, NL Muscle Strength and Tone Lines/Tubes/Other Access: Clean, Dry and Intact Peripheral IV, Clean, Dry and Intact Other Access - Gtube Result Diagrams: 01/31/17 05:00 01/31/17 05:00 Additional Lab and Data: Lab Results 01/25/17 01/25/17 01/25/17 Range/Units 22:20 22:20 22:20 WBC 9.4 (3.5-10.8) 10^3/ul RBC 3.22 L (4.0-5.4) 10^6/ul Hgb 9.8 L (14.0-18.0) g/dl Hct 29 L (42-52) % MCV 90 (80-94) fL MCH 30 (27-31) pg MCHC 34 (31-36) g/dl RDW 15 (10.5-15) % Plt Count 187 (150-450) 10^3/ul MPV 8 (7.4-10.4) um3 Neut % (Auto) 73.7 (38-83) % Lymph % (Auto) 6.0 L (25-47) % [place] % (Auto) 19.9 H (1-9) % Eos % (Auto) 0.2 (0-6) % Baso % (Auto) 0.2 (0-2) % Absolute Neuts (auto) 7.0 (1.5-7.7) 10^3/ul Absolute Lymphs (auto) 0.6 L (1.0-4.8) 10^3/ul Absolute Monos (auto) 1.9 H (0-0.8) 10^3/ul Absolute Eos (auto) 0 (0-0.6) 10^3/ul Absolute Basos (auto) 0 (0-0.2) 10^3/ul Absolute Nucleated RBC 0.01 10^3/ul Nucleated RBC % 0.1 INR (Anticoag Therapy) 1.09 (0.89-1.11) Sodium (133-145) mmol/L Potassium (3.5-5.0) mmol/L Chloride (101-111) mmol/L Carbon Dioxide (22-32) mmol/L Anion Gap (2-11) mmol/L BUN (6-24) mg/dL Creatinine (0.67-1.17) mg/dL Est GFR ( Amer) (>60) Est GFR (Non-Af Amer) (>60) BUN/Creatinine Ratio (8-20) Glucose (70-100) mg/dL Lactic Acid (0.5-2.0) mmol/L Calcium (8.6-10.3) mg/dL Total Bilirubin (0.2-1.0) mg/dL AST (13-39) U/L ALT (7-52) U/L Alkaline Phosphatase (34-104) U/L Troponin I (<0.04) ng/mL Total Protein (6.4-8.9) g/dL Albumin (3.2-5.2) g/dL Globulin (2-4) g/dL Albumin/Globulin Ratio (1-3) Urine Color Yellow Urine Appearance Clear Urine pH 8.0 (5-9) Ur Specific [place] 1.015 (1.010-1.030) Urine Protein 1+(30 mg/dl) H (Negative) Urine Ketones Negative (Negative) Urine Blood 1+ H (Negative) Urine Nitrate Negative (Negative) Urine Bilirubin Negative (Negative) Urine Urobilinogen Negative (Negative) Ur Leukocyte Esterase Negative (Negative) Urine WBC (Auto) 1+(6-10/hpf) H (Absent) Urine RBC (Auto) 3+(>10/hpf) H (Absent) Urine Bacteria Absent (Absent) Urine Glucose Negative (Negative) Urine Ascorbic Acid * H (Negative) Influenza A (Rapid) (Negative) Influenza B (Rapid) (Negative) 01/25/17 01/25/17 01/25/17 Range/Units 22:20 22:20 23:37 WBC (3.5-10.8) 10^3/ul RBC (4.0-5.4) 10^6/ul Hgb (14.0-18.0) g/dl Hct (42-52) % MCV (80-94) fL MCH (27-31) pg MCHC (31-36) g/dl RDW (10.5-15) % Plt Count (150-450) 10^3/ul MPV (7.4-10.4) um3 Neut % (Auto) (38-83) % Lymph % (Auto) (25-47) % [place] % (Auto) (1-9) % Eos % (Auto) (0-6) % Baso % (Auto) (0-2) % Absolute Neuts (auto) (1.5-7.7) 10^3/ul Absolute Lymphs (auto) (1.0-4.8) 10^3/ul Absolute Monos (auto) (0-0.8) 10^3/ul Absolute Eos (auto) (0-0.6) 10^3/ul Absolute Basos (auto) (0-0.2) 10^3/ul Absolute Nucleated RBC 10^3/ul Nucleated RBC % INR (Anticoag Therapy) (0.89-1.11) Sodium 123 L (133-145) mmol/L Potassium 5.5 H (3.5-5.0) mmol/L Chloride 89 L (101-111) mmol/L Carbon Dioxide 29 (22-32) mmol/L Anion Gap 5 (2-11) mmol/L BUN 62 H (6-24) mg/dL Creatinine 1.59 H (0.67-1.17) mg/dL Est GFR ( Amer) 54.0 (>60) Est GFR (Non-Af Amer) 42.0 (>60) BUN/Creatinine Ratio 39.0 H (8-20) Glucose 96 (70-100) mg/dL Lactic Acid 0.6 (0.5-2.0) mmol/L Calcium 9.0 (8.6-10.3) mg/dL Total Bilirubin 0.40 (0.2-1.0) mg/dL AST 42 H (13-39) U/L ALT 34 (7-52) U/L Alkaline Phosphatase 152 H (34-104) U/L Troponin I 0.06 H* (<0.04) ng/mL Total Protein 6.3 L (6.4-8.9) g/dL Albumin 3.2 (3.2-5.2) g/dL Globulin 3.1 (2-4) g/dL Albumin/Globulin Ratio 1.0 (1-3) Urine Color Urine Appearance Urine pH (5-9) Ur Specific [place] (1.010-1.030) Urine Protein (Negative) Urine Ketones (Negative) Urine Blood (Negative) Urine Nitrate (Negative) Urine Bilirubin (Negative) Urine Urobilinogen (Negative) Ur Leukocyte Esterase (Negative) Urine WBC (Auto) (Absent) Urine RBC (Auto) (Absent) Urine Bacteria (Absent) Urine Glucose (Negative) Urine Ascorbic Acid (Negative) Influenza A (Rapid) Negative (Negative) Influenza B (Rapid) Negative (Negative) Microbiology and Other Data: Microbiology 01/26/17 04:53 Nasal Screen MRSA (PCR)(BEBETO) - Final Nasal Mrsa Negative Assess/Plan/Problems-Billing Assessment: 81 yo male with a 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 possible recent flu, and PNA? . - Patient Problems (1) Aspiration of gastric contents Comment: Suspect aspiration pneumonitis secondary to aspiration event 01/28. Continue Augmentin. Patient and family expressed desire to continue tube feeds as patient is unable to safely take PO due to obstructing esophageal mass. Continue Glucerna tube feeds at continuous rate and titrate slowly. Aspiration precautions. Appreciate nutrition consult for guidance. Diarrhea slowing. PRN immodium available. Repeat CXR 01/29 showed no definitive infiltrates or pneumonia. (2) Confusion Comment: Suspect metabolic encephalopathy, most likely secondary to dehydration, AALIYAH, and mild hyponatremia. Resolved. Patient following commands and expressing needs. Daughter feels he is at his baseline. Continue Seroquel prn for agitation. Tramadol ordered for pain control. Will add Toradol and monitor kidney function. Patient reportedly more altered with other narcotics. Patient has infrequent diarrhea, C. diff negative Influenza negative. Chest xray: no evidence for acute disease on admission XR and on f/u XR 01/28 CT Brain: meningioma. No acute infarct. CT chest/abd/pelvis ordered by oncology - increased soft tissue density noted at rectosigmoid anastamosis. (3) Acute kidney injury Comment: Resolved, suspect secondary to severe dehydration. (4) Hyponatremia Comment: Suspect severe dehydration, resolved with IVFs. (5) Elevated troponin Comment: 0.06, 0.05 - suspect demand ischemia No CP, back in SR with PVCs, continue low-dose metoprolol CHADs2 Vasc score - 4 - Poor candidate for anticoagulation and family agrees. ASA/Plavix was discontinued by hospice last year. (6) Esophagitis Comment: Hx of erosive esophagitis (7) hx of obstructing esophageal tumor Comment: Continue Tube Feedings as continuous feed instead of bolus feeds. Oncology following CT chest/abd/pelvis shows new increased soft tissue density at rectosigmoid anastomosis suspicious for recurrent disease (8) Diabetes Comment: Controlled. FSBG Q4hrs with lispro SS. (9) Fractured rib Comment: Fell OOB 3 weeks ago. (10) DNR (do not resuscitate) (11) DVT prophylaxis Comment: SQ heparin Status and Disposition: Inpatient with confusion and dehydration, which has been improved. Now with concern for aspiration pneumonitis/pneumonia. Plan for Hospice evaluation at [facility]. Plan for DC to [facility] tomorrow. Titrate tube feed up to max goal of 60 mL/hr.
[2017-02-01] MEDS ORDERED: Furosemide IV* 10 MG/ML 2 ML VIAL (20 MG) ONE (21:03)
[2017-02-01] MEDS ORDERED: Furosemide IV* 10 MG/ML 2 ML VIAL (20 MG) IV ONE (21:15)
[2017-02-01] MEDS: CMCS: Melatonin (NF) 3 MG TAB PO PRN (23:57)
[2017-02-02] MEDS: Insulin LISPRO* 1 UNITS UNIT SUBCUT SCH ×3 (01:04→12:49)
[2017-02-02] MEDS: Heparin VIAL(*) 5000 UNITS/ML VIAL (FIVE THOUSAND) SUBCUT SCH (05:34)
[2017-02-02] MEDS: Ketorolac INJ* 15 MG/ML 1 ML VIAL IV PUSH PRN ×2 (06:22→12:48)
[2017-02-02] MEDS: Amoxicillin/Clavulanate O.SYR* 400 MG/5 ML ORAL.SYRIN PEG TUBE SCH (10:03)
[2017-02-02] MEDS: traMADol TAB* 50 MG PEG TUBE PRN (10:12)
[2017-02-02] MEDS: Docusate CAP* 100 MG PO SCH (10:19)
[2017-02-02] MEDS ORDERED: Metoprolol Tartrate TAB* 25 MG G TUBE ONE (10:31)
[2017-02-02 11:08] LABS: BUN/Creatinine Ratio 25.2 (8-20); Calcium 9.7 mg/dL (8.6-10.3); EGFR African American 72.6 (>60); EGFR Non-African American 56.5 (>60); Magnesium 1.9 mg/dL (1.9-2.7); Potassium 4.7 mmol/L (3.5-5.0)
[2017-02-02] MEDS ORDERED: NS 0.9% 250 ML* 250 ML IV ONE (11:18)
--- NOTE | 2017-02-02 11:19 | DCNOTE ---
Subjective Date of Service: 02/02/17 Interval History: patient alert and talkative today. He is looking forward to going back to [facility] and states he has friends there. He reports he "feel okay" today but cant tell me any specific complaint. Denies SOB, cough, CP. No Abdominal pain, N/V/D. No fevers or chills. Family History: Unchanged from Admission Social History: Unchanged from Admission Past Medical History: Unchanged from Admission Objective Active Medications: Acetaminophen (Tylenol Tab*) 650 mg .SEE ORDER Q6H PRN PRN Reason: FEVER/PAIN Last Admin: 01/29/17 19:39 Dose: 650 mg Albuterol (Ventolin 2.5 Mg/3 Ml Neb.Gabi*) 2.5 mg INH Q2H PRN PRN Reason: SOB/WHEEZING Last Admin: 01/28/17 18:42 Dose: 2.5 mg Amoxicillin/Clavulanate Potassium (Augmentin Oral Syringe*) 875 mg PEG TUBE BID [facility] Last Admin: 02/02/17 10:03 Dose: 875 mg Docusate Sodium (Colace Cap*) 200 mg PO BID [facility] Last Admin: 02/02/17 10:19 Dose: Not Given Guaifenesin (Robitussin*) 5 ml PO Q4H PRN PRN Reason: COUGH Last Admin: 01/28/17 15:04 Dose: 5 ml Heparin Sodium (Porcine) (Heparin Vial(*)) 5,000 units SUBCUT Q8HR [facility] Last Admin: 02/02/17 05:34 Dose: 5,000 units Sodium Chloride (Ns 0.9% 1000 Ml*) 1,000 mls @ 50 mls/hr IV PER RATE [facility] Last Admin: 02/01/17 09:04 Dose: 50 mls/hr Insulin Human Lispro (Humalog*) 0 units SUBCUT Q6HR [facility] PRN Reason: Protocol Last Admin: 02/02/17 05:35 Dose: 2 units Ketorolac Tromethamine (Toradol Inj*) 15 mg IV PUSH Q6H PRN PRN Reason: PAIN Last Admin: 02/02/17 06:22 Dose: 15 mg Loperamide HCl (Imodium Liq*) 2 mg PO .SEE ORDER PRN PRN Reason: DIARRHEA Last Admin: 01/31/17 20:23 Dose: 2 mg Melatonin (Melatonin (Nf)) 3 mg PO BEDTIME PRN; Protocol PRN Reason: Sleep Last Admin: 02/01/17 23:57 Dose: 3 mg Metoprolol Tartrate (Lopressor Iv*) 5 mg IV Q6H PRN PRN Reason: BLOOD PRESSURE Last Admin: 01/30/17 10:15 Dose: 5 mg Ondansetron HCl (Zofran Inj*) 4 mg IV Q6H PRN PRN Reason: NAUSEA Quetiapine Fumarate (Seroquel Tab*) 25 mg PEG TUBE DAILY PRN PRN Reason: AGITATION Last Admin: 02/01/17 09:06 Dose: 25 mg Tramadol HCl (Ultram*) 50 mg PEG TUBE Q6H PRN PRN Reason: PAIN - MILD TO MODERATE Last Admin: 02/01/17 12:26 Dose: 50 mg Tramadol HCl (Ultram*) 100 mg PEG TUBE Q6H PRN PRN Reason: PAIN - MODERATE TO SEVERE Last Admin: 02/02/17 10:12 Dose: 100 mg Vital Signs 02/01/17 02/01/17 02/01/17 11:51 12:26 14:08 Temperature 98.9 F Pulse Rate 115 Respiratory 16 20 Rate Blood Pressure 143/78 (mmHg) O2 Sat by Pulse 100 Oximetry 02/01/17 02/01/17 02/01/17 14:26 15:15 18:38 Temperature 98.4 F Pulse Rate 99 Respiratory 20 20 20 Rate Blood Pressure 119/70 (mmHg) O2 Sat by Pulse 100 Oximetry 02/01/17 02/01/17 02/02/17 20:00 20:38 01:19 Temperature 97.8 F 98.0 F Pulse Rate 106 103 Respiratory 19 21 16 Rate Blood Pressure 140/81 122/66 (mmHg) O2 Sat by Pulse 100 100 Oximetry 02/02/17 02/02/17 02/02/17 04:11 04:37 10:12 Temperature Pulse Rate 101 106 Respiratory 16 16 18 Rate Blood Pressure 131/74 (mmHg) O2 Sat by Pulse 97 96 Oximetry 02/02/17 10:31 Temperature Pulse Rate 102 Respiratory 18 Rate Blood Pressure (mmHg) O2 Sat by Pulse 97 Oximetry Oxygen Devices in Use Now: Nasal Cannula - 2Lnc Appearance: alert and oriented to self and place but not to time. NAD Eyes: No Scleral Icterus, PERRLA Ears/Nose/Mouth/Throat: NL Teeth, Lips, Gums, Mucous Membranes Moist Neck: NL Appearance and Movements; NL JVP Respiratory: Symmetrical Chest Expansion and Respiratory Effort, Clear to Auscultation Cardiovascular: NL Sounds; No Murmurs; No JVD, RRR, No Edema Abdominal: - - Gtube in place - no noted erythema or drainage around tube. Abd soft nontender, NL BS Extremities: No Edema, No Clubbing, Cyanosis Skin: No Rash or Ulcers, No Nodules or Sclerosis Neurological: NL Muscle Strength and Tone Lines/Tubes/Other Access: Clean, Dry and Intact Peripheral IV Nutrition: Taking PO's Result Diagrams: 01/31/17 05:00 02/02/17 10:15 Additional Lab and Data: Lab Results 01/25/17 01/25/17 01/25/17 Range/Units 22:20 22:20 22:20 WBC 9.4 (3.5-10.8) 10^3/ul RBC 3.22 L (4.0-5.4) 10^6/ul Hgb 9.8 L (14.0-18.0) g/dl Hct 29 L (42-52) % MCV 90 (80-94) fL MCH 30 (27-31) pg MCHC 34 (31-36) g/dl RDW 15 (10.5-15) % Plt Count 187 (150-450) 10^3/ul MPV 8 (7.4-10.4) um3 Neut % (Auto) 73.7 (38-83) % Lymph % (Auto) 6.0 L (25-47) % [place] % (Auto) 19.9 H (1-9) % Eos % (Auto) 0.2 (0-6) % Baso % (Auto) 0.2 (0-2) % Absolute Neuts (auto) 7.0 (1.5-7.7) 10^3/ul Absolute Lymphs (auto) 0.6 L (1.0-4.8) 10^3/ul Absolute Monos (auto) 1.9 H (0-0.8) 10^3/ul Absolute Eos (auto) 0 (0-0.6) 10^3/ul Absolute Basos (auto) 0 (0-0.2) 10^3/ul Absolute Nucleated RBC 0.01 10^3/ul Nucleated RBC % 0.1 INR (Anticoag Therapy) 1.09 (0.89-1.11) Sodium (133-145) mmol/L Potassium (3.5-5.0) mmol/L Chloride (101-111) mmol/L Carbon Dioxide (22-32) mmol/L Anion Gap (2-11) mmol/L BUN (6-24) mg/dL Creatinine (0.67-1.17) mg/dL Est GFR ( Amer) (>60) Est GFR (Non-Af Amer) (>60) BUN/Creatinine Ratio (8-20) Glucose (70-100) mg/dL Lactic Acid (0.5-2.0) mmol/L Calcium (8.6-10.3) mg/dL Total Bilirubin (0.2-1.0) mg/dL AST (13-39) U/L ALT (7-52) U/L Alkaline Phosphatase (34-104) U/L Troponin I (<0.04) ng/mL Total Protein (6.4-8.9) g/dL Albumin (3.2-5.2) g/dL Globulin (2-4) g/dL Albumin/Globulin Ratio (1-3) Urine Color Yellow Urine Appearance Clear Urine pH 8.0 (5-9) Ur Specific [place] 1.015 (1.010-1.030) Urine Protein 1+(30 mg/dl) H (Negative) Urine Ketones Negative (Negative) Urine Blood 1+ H (Negative) Urine Nitrate Negative (Negative) Urine Bilirubin Negative (Negative) Urine Urobilinogen Negative (Negative) Ur Leukocyte Esterase Negative (Negative) Urine WBC (Auto) 1+(6-10/hpf) H (Absent) Urine RBC (Auto) 3+(>10/hpf) H (Absent) Urine Bacteria Absent (Absent) Urine Glucose Negative (Negative) Urine Ascorbic Acid * H (Negative) Influenza A (Rapid) (Negative) Influenza B (Rapid) (Negative) 01/25/17 01/25/17 01/25/17 Range/Units 22:20 22:20 23:37 WBC (3.5-10.8) 10^3/ul RBC (4.0-5.4) 10^6/ul Hgb (14.0-18.0) g/dl Hct (42-52) % MCV (80-94) fL MCH (27-31) pg MCHC (31-36) g/dl RDW (10.5-15) % Plt Count (150-450) 10^3/ul MPV (7.4-10.4) um3 Neut % (Auto) (38-83) % Lymph % (Auto) (25-47) % [place] % (Auto) (1-9) % Eos % (Auto) (0-6) % Baso % (Auto) (0-2) % Absolute Neuts (auto) (1.5-7.7) 10^3/ul Absolute Lymphs (auto) (1.0-4.8) 10^3/ul Absolute Monos (auto) (0-0.8) 10^3/ul Absolute Eos (auto) (0-0.6) 10^3/ul Absolute Basos (auto) (0-0.2) 10^3/ul Absolute Nucleated RBC 10^3/ul Nucleated RBC % INR (Anticoag Therapy) (0.89-1.11) Sodium 123 L (133-145) mmol/L Potassium 5.5 H (3.5-5.0) mmol/L Chloride 89 L (101-111) mmol/L Carbon Dioxide 29 (22-32) mmol/L Anion Gap 5 (2-11) mmol/L BUN 62 H (6-24) mg/dL Creatinine 1.59 H (0.67-1.17) mg/dL Est GFR ( Amer) 54.0 (>60) Est GFR (Non-Af Amer) 42.0 (>60) BUN/Creatinine Ratio 39.0 H (8-20) Glucose 96 (70-100) mg/dL Lactic Acid 0.6 (0.5-2.0) mmol/L Calcium 9.0 (8.6-10.3) mg/dL Total Bilirubin 0.40 (0.2-1.0) mg/dL AST 42 H (13-39) U/L ALT 34 (7-52) U/L Alkaline Phosphatase 152 H (34-104) U/L Troponin I 0.06 H* (<0.04) ng/mL Total Protein 6.3 L (6.4-8.9) g/dL Albumin 3.2 (3.2-5.2) g/dL Globulin 3.1 (2-4) g/dL Albumin/Globulin Ratio 1.0 (1-3) Urine Color Urine Appearance Urine pH (5-9) Ur Specific [place] (1.010-1.030) Urine Protein (Negative) Urine Ketones (Negative) Urine Blood (Negative) Urine Nitrate (Negative) Urine Bilirubin (Negative) Urine Urobilinogen (Negative) Ur Leukocyte Esterase (Negative) Urine WBC (Auto) (Absent) Urine RBC (Auto) (Absent) Urine Bacteria (Absent) Urine Glucose (Negative) Urine Ascorbic Acid (Negative) Influenza A (Rapid) Negative (Negative) Influenza B (Rapid) Negative (Negative) Microbiology and Other Data: Microbiology 01/26/17 04:53 Nasal Screen MRSA (PCR)(BEBETO) - Final Nasal Mrsa Negative Assess/Plan/Problems-Billing Assessment: 81 yo male with a PMH of 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 possible recent flu, and PNA? . - Patient Problems (1) Aspiration of gastric contents Comment: Suspect aspiration pneumonitis secondary to aspiration event 01/28. Continue Augmentin for todtal of 7 day course. Patient and family expressed desire to continue tube feeds as patient is unable to safely take PO due to obstructing esophageal mass. Continue Glucerna tube feeds at continuous rate and titrate slowly. Aspiration precautions. Diarrhea resolved. Repeat CXR 01/29 showed no definitive infiltrates or pneumonia. (2) Confusion Comment: Suspect metabolic encephalopathy, most likely secondary to dehydration, AALIYAH, and mild hyponatremia. Resolved. Patient following commands and expressing needs. Daughter feels he is at his baseline. Continue Seroquel prn for agitation. Tramadol ordered for pain control. Will add Toradol and monitor kidney function. Patient reportedly more altered with other narcotics. Patient has infrequent diarrhea, C. diff negative Influenza negative. Chest xray: no evidence for acute disease on admission XR and on f/u XR 01/28 CT Brain: meningioma. No acute infarct. CT chest/abd/pelvis ordered by oncology - increased soft tissue density noted at rectosigmoid anastamosis. (3) Acute kidney injury Comment: AALIYAH was resolved now creatinine up 1.2 today, suspect secondary to dehydration. Pt cannot keep up with fluid requirements. Will give 250 ml bolus. Hold lisinopril. Recheck creatinine on Sunday at [facility]. (4) Atrial flutter, paroxysmal Comment: - EKG today sinus tach HR 90-101. Was noted to have 1 EKG suspicious for aflutter. Spoke to daughter who agrees to anticoagulation due to high fall risk and no ASA due to hx of gastritis. Stroke risks were discussed. continue BB (5) Hyponatremia Comment: Suspect severe dehydration, resolved with IVFs. (6) Elevated troponin Comment: 0.06, 0.05 - suspect demand ischemia No CP, back in SR with PVCs, continue low-dose metoprolol CHADs2 Vasc score - 4 - Poor candidate for anticoagulation and family agrees. ASA/Plavix was discontinued by hospice last year. (7) Esophagitis Comment: Hx of erosive esophagitis (8) hx of obstructing esophageal tumor Comment: Continue Tube Feedings as continuous feed instead of bolus feeds. Oncology following CT chest/abd/pelvis shows new increased soft tissue density at rectosigmoid anastomosis suspicious for recurrent disease (9) Diabetes Comment: Controlled. FSBG Q4hrs with lispro SS. (10) Fractured rib Comment: Fell OOB 3 weeks ago. (11) DNR (do not resuscitate) (12) DVT prophylaxis Comment: SQ heparin Status and Disposition: Inpatient with confusion and dehydration, which has been improved. Now with concern for aspiration pneumonitis/pneumonia. Plan for Hospice evaluation at [facility]. Plan for DC to [facility] today. Titrate tube feed up to max goal of 60 mL/ hr.
[2017-02-02 13:02] VITALS: BP 126/74
--- NOTE | 2017-02-02 13:50 | DS ---
DATE OF ADMISSION: 01/25/2017. DATE OF DISCHARGE: 02/02/2017. PROVIDER: Juan Vizcaino NP. ATTENDING PHYSICIAN: Dr. Christianson *(report dictated by Juan Vizcaino NP). PRIMARY CARE PROVIDER: Dr. Nicole. TRANSFERRING TO: [facility] where the patient currently resides as a long- term resident. PRIMARY DIAGNOSES: 1. Acute delirium, suspect secondary to metabolic encephalopathy secondary to dehydration. 2. Acute kidney injury secondary to dehydration. 3. Aspiration pneumonitis with history of recurrent aspiration, on bolus tube feedings. 4. Diarrhea. 5. Type 2 diabetes. 6. Paroxysmal atrial flutter. 7. Brain meningioma. 8. Elevated troponin thought to be secondary to demand ischemia. SECONDARY DIAGNOSES: 1. Obstructing esophageal cancer, status post Carboplatin/Taxol/radiotx, status G- tube placement and at baseline NPO. 2. Erosive esophagitis. 3. COPD. 4. Coronary artery disease with history of LA and status post two stents. 5. Hypertension. 6. Hyperlipidemia. 7. Status post fem-pop bypass. 8. GERD. 9. Status post fractured rib three weeks ago. DISCHARGE MEDICATIONS: 1. Guaifenesin 200 mg PEG tube q.6 hours prn. 2. Nitroglycerin 0.4 mg sublingual q.5 minutes times 3 prn. 3. Zofran 4 mg ODT to PEG tube q.6 hours prn nausea. 4. Milk of Magnesia 15 ml PEG tube daily prn. 5. Oxycodone 5 mg PEG tube q.8 hours. 6. Effexor XR 37.5 mg PEG tube q.12 hours. 7. Protonix 40 mg G-tube daily. 8. Carafate 1 gm G-tube q.i.d. 9. Plavix 75 mg G-tube daily. 10. Albuterol 2.5 mg/3 ml nebulized solution inhalation q.4 hours prn shortness of breath or wheezing. NEW MEDICATIONS: 1. Metoprolol tartrate 12.5 mg to G-tube b.i.d. 2. Metformin 500 mg p.o. daily. Please note that the patient was taken off diabetic medication when he was placed on hospice and never restarted medication ; however, in the hospital he was treated with insulin Lispro. I have recommended Metformin on discharge until the decision about hospice is made. 3. Augmentin 875 mg b.i.d. per PEG tube times 5 days to finish a 7 day course. HISTORY OF PRESENT ILLNESS AND HOSPITAL COURSE: Please see history and physical by Dr. Adame for full admission details. In summary, this is an 81-year-old male who presented with confusion from [facility] who per family had been increasingly confused over the past three days. The patient was admitted with acute delirium. He was noted to be severely dehydrated with acute kidney injury with a creatinine of 1.59 on admission. Per daughter, the patient had had a recent upper respiratory infection and congestion. The patient was tested for influenza which was negative. He had no leukocytosis on admission and his chest x-ray showed no evidence for acute disease. The patient was having copious amounts of diarrhea the next day after admission and per daughter this is common with the patient when he receives IV fluids due to his reconstructed bowel. The patient's acute kidney injury resolved quickly with IV hydration. His diarrhea eventually resolved. His stool was tested for C. diff which was negative, as well as negative for occult blood. His urinalysis was within normal limits on admission and was rechecked on January 30 and noted to be abnormal; however, the urine culture did result with no growth. The patient was noted to have acute delirium which slowly resolved over the hospitalization, now the patient is back to his baseline. The daughter has been visiting and confirms this. The patient was continued on his bolus tube feedings. On January 28, the patient had an acute event which was noted that he aspirated and was thought to have aspiration pneumonitis and was started on Augmentin, which he needs to finish five days on discharge for a total of a seven day course. The patient has remained afebrile since 01/30/2017. The patient did have a mildly elevated white blood cell count on January 30 which resolved by the next day. The patient was consulted by our mica splitter who recommended the patient switch to continuous tube feedings to reduce the risk of aspiration. The patient has been receiving Glucerna 1.2. Today he is at 50 ml per hour. He has been titrated up slowly, tolerating the tube feedings with the goal of 60 ml an hour. The patient did have noted paroxysmal atrial flutter once to twice throughout his hospitalization. He was started on Metoprolol 12.5 mg p.o. b.i.d. I discussed this with the daughter who agrees the patient is too high risk for anti-coagulation, as well as she had concerns about starting him on aspirin due to his history of gastritis. Stroke risks were discussed. The patient's daughter states understanding. The plan is to continue to treat with a beta kan at this time. In regards to the patient's diabetes, the patient had been taken off his diabetes medication when he was on hospice, but has since graduated from Hospice. He has been treated in the hospital with Lispro insulin on a sliding scale and has had noted elevated blood sugars between 150 and 180. I have ordered the patient to start Metformin and will leave this up to the discretion of the primary care provider and should be determined by the hospice evaluation that the patient will have as an outpatient. On admission, the patient was noted to have an elevated troponin of 0.06 which trended down to 0.05, suspected demand ischemia. The patient denied any chest pain and was continued on Plavix. In regards to the patient's obstructing esophageal tumor, he was seen in consultation by Dr. Cavazos, oncologist, who recommended obtaining a CT scan, in which a chest/abdomen/pelvis with contrast was obtained which showed impression "1. Small bilateral pleural effusions and small amount of ascites. 2. Thickening of the wall of the distal esophagus which appears similar to prior studies. 3. Mildly enlarged aorticopulmonary window lymph node slightly increased in size. 4. Increased soft tissue density at the rectosigmoid anastomosis suspicious for recurrent disease. 5. 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 Per daughter, Dr. Cavazos does not want the patient to undergo another PET scan. Again, the plan is for the patient to be re- evaluated by Hospice to determine if he is eligible. Today on evaluation, the patient is alert and oriented to self and place and states he is excited to return back to [facility]. Per daughter, he is at his baseline. The patient was noted to have a slight increase in his creatinine today which was 1.23. It was last rechecked on 01/31/2017 in which it was 1.14. Suspect this is secondary to some mild dehydration. The patient was given a normal saline 250 ml bolus prior to being discharged. I discussed with the patient's daughter that it is possible the patient just may not be able to keep up on his hydration status. It does appear at the nursing he is given some water boluses which should be continued. DISCHARGE PLAN: 1. Plan to transfer the patient back to [facility] today. The daughter has been updated on the plan. 2. Continue Glucerna 1.2 continuous tube feedings with goal of 60 ml an hour. The patient currently is at 50 ml an hour. Check residuals per protocol. Aspiration precautions. 3. forge utility worker has been involved throughout his hospitalization and plan for outpatient hospice re-evaluation. Please contact them for an appointment. 4. Recheck BMP on 02/05/2017. TIME SPENT: Approximately 60 minutes were spent on this discharge. JUAN VIZCAINO NP CC: Dr. Nicole* [id number]/CPS #: [id number] YAO
== END 2017-02-02 13:55 | DRG 70 ==
LOC: ED 20:42 → MEDTELE 01-26 01:28 → OBSVTOIN 01-26 10:00 → ICU 01-28 18:55 → MEDTELE 01-30 22:35
PROVIDERS: ADMIT Hospitalist; ATTEND Hospitalist
DX: G93.41 Metabolic encephalopathy (principal); J69.0 Pneumonitis due to inhalation of food and vomit; N17.9 Acute kidney failure, unspecified; J90 Pleural effusion, not elsewhere classified; R18.8 Other ascites; C15.9 Malignant neoplasm of esophagus, unspecified; F05 Delirium due to known physiological condition; I24.8 Other forms of acute ischemic heart disease; E11.51 Type 2 diabetes mellitus with diabetic peripheral angiopathy without gangrene; K22.10 Ulcer of esophagus without bleeding; S22.39XA Fracture of one rib, unspecified side, initial encounter for closed fracture; I48.92 Unspecified atrial flutter; E87.1 Hypo-osmolality and hyponatremia; E86.0 Dehydration; J44.9 Chronic obstructive pulmonary disease, unspecified; I25.10 Atherosclerotic heart disease of native coronary artery without angina pectoris; I10 Essential (primary) hypertension; E78.5 Hyperlipidemia, unspecified; I77.9 Disorder of arteries and arterioles, unspecified; K21.9 Gastro-esophageal reflux disease without esophagitis; Z66 Do not resuscitate; E66.3 Overweight; R79.89 Other specified abnormal findings of blood chemistry; M19.012 Primary osteoarthritis, left shoulder; M19.011 Primary osteoarthritis, right shoulder; H26.9 Unspecified cataract; F32.9 Major depressive disorder, single episode, unspecified; H91.90 Unspecified hearing loss, unspecified ear; R19.7 Diarrhea, unspecified; D32.9 Benign neoplasm of meninges, unspecified; D32.0 Benign neoplasm of cerebral meninges; T17.910A Gastric contents in respiratory tract, part unspecified causing asphyxiation, initial encounter; W06.XXXA Fall from bed, initial encounter; Y92.122 Bedroom in nursing home as the place of occurrence of the external cause; Z92.21 Personal history of antineoplastic chemotherapy; Z92.3 Personal history of irradiation; I25.2 Old myocardial infarction; Z95.5 Presence of coronary angioplasty implant and graft; Z88.8 Allergy status to other drugs, medicaments and biological substances; Z87.891 Personal history of nicotine dependence; Z82.49 Family history of ischemic heart disease and other diseases of the circulatory system; Z83.3 Family history of diabetes mellitus; Z68.24 Body mass index [BMI] 24.0-24.9, adult; Z85.038 Personal history of other malignant neoplasm of large intestine; Z87.442 Personal history of urinary calculi; Z93.1 Gastrostomy status; Z79.02 Long term (current) use of antithrombotics/antiplatelets; Z79.891 Long term (current) use of opiate analgesic; Z79.84 Long term (current) use of oral hypoglycemic drugs
CPT/HCPCS: 36415; 70450; 71010; 71260; 74177; 80048; 80053; 81003; 81015; 82272; 82803; 83605; 83735; 83880; 84145; 84484; 85025; 85027; 85610; 86140; 87045; 87046; 87070; 87077; 87086; 87205; 87493; 87502; 87641; 87899; 93005; 94640; 94760; 99232; A9270-GY; G0378; J1630; J1642; J1644; J1885; J1940; J2270; J2543; J2997; J3475; J3480; J3490; Q9967